=== PATIENT | female | born 1955 | race Caucasian/White ===

== ENCOUNTER 2023-12-22 18:42 | Inpatient (IN) | payer OTHER, SELFPAY ==
--- NOTE | ~2023-12-22 | XR_ITS ---
EXAMINATION: XR CHEST CLINICAL INFORMATION: Coarse rhonchi COMPARISON: None available. TECHNIQUE: Frontal view of the chest was obtained. FINDINGS: Lung volumes are symmetric. No focal consolidation is seen. There is a mildly coarsened appearance of the interstitium. No evidence of pneumothorax or significant pleural effusion. Cardiac size appears within normal limits accounting for patient rotation. No acute osseous findings are seen. XR/XR chest 1V IMPRESSION: No focal consolidation. Mildly coarsened appearance of the interstitium may reflect airways disease or subtle vascular congestion.
[2023-12-22 18:50] VITALS: BP 142/70; PULSE 86; O2SAT 97
[2023-12-22 19:06] VITALS: BP 139/84; PULSE 90; RESP 20; TEMP 37.1; O2SAT 98
[2023-12-22 19:16] VITALS: BMI 28.3
--- NOTE | 2023-12-22 19:35 | ED_ITS ---
HPI - Nausea/Vomiting/Diarrhea General Chief complaint: Nausea/Vomiting/Diarrhea Stated complaint: nausea and vomiting Time Seen by Provider: 12/22/23 19:21 Source: patient and family (, Shane and daughter, Morenita) Mode of arrival: EMS Limitations: no limitations History of Present Illness HPI Narrative: 68-year-old female with a history of hypertension, hyperlipidemia, myocardial infarction, strokes, bed-bound for 2 years, chronic pain syndrome on oxycodone who presents emergency department for evaluation of severe pain, nausea vomiting and diarrhea. According to the family the patient became ill at around 20:00 hours yesterday and felt worse today and requested to come to the hospital for evaluation. Patient has vomited multiple times and has not been able to hold down her medications including oxycodone for chronic pain (oxycodone 20 mg 3 times a day and 10 mg at bedtime). Patient has had very little food or fluid to drink throughout the day. She has also had multiple episodes of loose stool. She was also in extreme pain secondary to withdrawing from her narcotic medications. Patient states she had a very difficult time in the ambulance secondary to her pain. 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 Related Data Allergies Allergy/AdvReac Type Severity Reaction Status Date / Time No Known Allergies Allergy Verified 12/22/23 19:26 Review of Systems 2 Review of Systems: Yes all other systems are reviewed and are negative [facility] Past Medical History [facility] Narrative: Social history: Patient lives at home and her family and her and 2 daughters take care of her. Patient smokes 1-2 packs of cigarettes per day. She denies alcohol use. She denies drug use. Social History Social History Smoked in Last 30 Days: Yes Use of substances other than those prescribed or required for medical reasons: No Advance Directives: No Advance Directives Information Provided: No Physical Exam 2 Vital Signs: Vital Signs: Last Vital Signs Temp 98.7 F 12/22/23 19:06 Pulse 90 12/22/23 19:06 Resp 20 12/22/23 19:06 BP 139/84 12/22/23 19:06 Pulse Ox 98 12/22/23 19:06 O2 Del Method Room Air 12/22/23 19:06 BMI result Body Mass Index 28.3 Vital signs revealed elevated blood pressure of 139/84 otherwise unremarkable Exam: General: Awake, defers to family to answer questions but can give information. Patient is disheveled Head: Normocephalic, atraumatic EENT: PERRL, Lids normal, sclera normal, conjunctiva normal, nose normal , ears normal, throat without erythema or exudates Neck: Supple, no adenopathy Lung: breath sounds symmetric, no wheezing, rales or rhonchi Chest: symmetric movement, nontender Heart: regular rate and rhythm, normal S1, S2 no murmurs or rubs Abdomen: soft, moderate epigastric tender, nondistended, normal bowel sounds Extremities: Patient's left knee is bent and contracted, she is unable to straighten, right knee is straight but she is unable to move it Psych: Pleasant, cooperative Medications Administered Discontinued Medications Generic Name Dose Route Start Last Admin Trade Name Freq PRN Reason Stop Dose Admin Diphenhydramine HCl 25 mg 12/22/23 19:36 12/22/23 19:50 Diphenhydramine Hcl 50 Mg/Ml Vial IVPUSH 12/22/23 19:37 25 mg ONCE STA Administration Hydromorphone HCl 1 mg 12/22/23 19:36 12/22/23 19:49 Hydromorphone Hcl 1 Mg/Ml Syringe IVPUSH 12/22/23 19:37 1 mg ONCE STA Administration Protocol Hydromorphone HCl 1 mg 12/22/23 20:19 12/22/23 20:56 Hydromorphone Hcl 1 Mg/Ml Syringe IVPUSH 12/22/23 20:20 1 mg ONCE STA Administration Protocol Sodium Chloride 1,000 mls @ 999 mls/hr 12/22/23 19:36 12/22/23 20:57 Ns IV 12/22/23 20:36 Infused .Q1H1M STA Infusion Ondansetron HCl 4 mg 12/22/23 19:36 12/22/23 19:50 Ondansetron Hcl 4 Mg/2 Ml Vial IVPUSH 12/22/23 19:37 4 mg ONCE ONE Administration Medical Decision Making Medical Decision Making MDM Narrative: 68-year-old female with a history of hypertension, hyperlipidemia, myocardial infarction, strokes, bed-bound for 2 years, chronic pain syndrome on oxycodone who presents emergency department for evaluation severe pain, nausea vomiting and diarrhea since 20:00 last night, patient stated that she was not feeling well for 2-3 days. According to the family the patient became ill at around 20:00 hours yesterday and felt worse today and requested to come to the hospital for evaluation. Patient has vomited multiple times and has not been able to hold down her medications including oxycodone for chronic pain. Patient states she was in extreme pain and felt like she was withdrawing from narcotics, last dose was noon yesterday Patient has had very little food or fluid to drink throughout the day. She has also had multiple episodes of loose stool. 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 Vital signs revealed an elevated blood pressure exam did reveal epigastric tenderness and inability use your left leg secondary to contracture deformity of the left and weakness of the right. Differential diagnosis: ?Includes but is not limited to gastritis, gastroenteritis, pancreatitis, viral syndrome, COVID-19, influenza, RSV, anemia, electrolyte abnormalities, unintentional narcotic withdrawal Following evaluation was ordered: CBC, CMP, lipase, PTT, COVID-19, influenza, RSV Patient was initially treated with the following: IV insert, normal saline x1 L, Dilaudid 1 mg IV, Benadryl 25 mg IV and Zofran 4 mg IV Course: 12/08/2033: Patient required a 2nd dose of Dilaudid 1 mg IV and Benadryl 25 mg IV secondary to her pain and nausea. My independent interpretation patient's laboratory evaluation is as follows: CBC was normal. Glucose elevated 138. Elevated alk-phos of 182. Lipase was normal. Patient is feeling better after the above treatment, symptoms are consistent with an acute viral syndrome giving her gastroenteritis. I believe the patient's severe pain that she was having was most likely secondary to oxycodone withdrawal since she was unable to take this medication orally. The patient and her family are very concerned that the patient will continue to have nausea vomiting and diarrhea at home and will go into withdrawal again. Because of this concern, I will presenting patient to the covering hospitalist to have the patient admitted overnight for further treatment and to ensure that she can take oral medications before being discharged. I did discuss the patient over tiger text with the covering hospitalist, Dr. Hernan García and the patient will be admitted for further management. After discussion, I do not think that the patient needs a CT scan at this time since your symptoms are most likely caused by viral gastroenteritis. Admission/Observation Consideration of admission/observation: Escalation of care including admission/observation considered Consult Healthcare Provider Management of the patient was discussed with: Hospitalist Lab Data MDM Lab Attestation statement: I reviewed the patient's lab results. 12/22/23 19:57 12/22/23 19:57 Labs: Lab Results 12/22/23 Range/Units 19:57 WBC 11.8 H (4.8-10.8) X10*3/uL RBC 5.37 (4.20-5.50) X10*6/uL Hgb 13.9 (12.0-16.0) g/dl Hct 43.0 (37.0-47.0) % MCV 80.1 (80.0-98.0) fL MCH 25.9 L (27.0-33.0) pg MCHC 32.3 (31.0-35.0) g/dl RDW 14.4 (11.0-16.0) % Plt Count 351 (160-400) X10*3/uL MPV 8.8 L (9.4-12.3) fL Immature Gran % (Auto) 0.6 H (0.0-0.4) % Neut % (Auto) 82.4 H (45-73) % Lymph % (Auto) 11.7 L (20-40) % [place] % (Auto) 5.0 (2-11) % Eos % (Auto) 0.1 (0-4) % Baso % (Auto) 0.2 (0-2) % Lymph # (Auto) 1.4 (1.2-4.9) X10*3/uL [place] # (Auto) 0.6 (0.1-1.2) X10*3/uL Eos # (Auto) 0.0 (0.0-0.4) X10*3/uL Baso # (Auto) 0.0 (0.0-0.2) X10*3/uL Abs Immat Gran (auto) 0.07 H (0.00-0.03) X10*3/uL Absolute Neuts (auto) 9.8 H (2.0-8.3) x10*3/uL Absolute Nucleated RBC 0.000 (0.0-0.012) X10*3/uL Nucleated RBC % (auto) 0.0 (0.0-0.2) /100WBC APTT 31.2 (26.0-36.8) SEC Sodium 140 (135-145) mmol/L Potassium 3.3 (3.3-5.1) mmol/L Chloride 106 (96-108) mmol/L Carbon Dioxide 24 (22-29) mmol/L Anion Gap 13 (12-20) BUN 11 (9-16) mg/dL Creatinine 0.62 (0.5-1.4) mg/dL Estim Creat Clear Calc 86.6 Estimated GFR > 60 Random Glucose 138 H (60-115) mg/dL Calcium 9.6 (8.4-10.2) mg/dL Total Bilirubin 0.6 (0.0-1.0) mg/dL AST 17 (5-31) U/L ALT 15 (0-31) U/L Alkaline Phosphatase 182 H (39-117) U/L Total Protein 6.4 L (6.5-8.0) g/dL Albumin 3.3 L (3.5-5.0) g/dL Lipase 10 (8-78) U/L Influenza Type A (PCR) NEGATIVE (Negative) Influenza Type B (PCR) NEGATIVE (Negative) RSV RNA Qual (PCR) NEGATIVE (Negative) SARS-CoV-2 RNA (RT-PCR) NEGATIVE (Negative) Independent Historian Clinical information obtained from an independent historian. History obtained from or confirmed by: Spouse and Other (Daughter) Chronic Conditions Patient?s care impacted by: Hypertension and Other (Chronic pain syndrome on oxycodone) Critical Care Time Critical Care Time Critical Care Time: Yes Total Critical Care Time: 45 Attestation: Critical Care: The patient was critically ill with a high probability of imminent or life threatening deterioration. I spent greater than 30 minutes of discontinuous time evaluating the patient,delivering critical care at the bedside, discussing and evaluating pertinent data with consultants. Critical care time does not include time spent performing separately billable procedures or teaching. Total time spent performing critical care was 45 minutes. Discharge Plan Discharge Patient Disposition: Admitted As Inpatient
[2023-12-22] MEDS: HYDROmorphone HCl 1 MG/ML SYRINGE IVPUSH ×3 (19:49→22:58)
[2023-12-22] MEDS: 0.9 % Sodium Chloride 1,000 ML 999 ML IV (19:50)
[2023-12-22] MEDS: ondansetron HCL 4 MG/2 ML VIAL IVPUSH (19:50)
[2023-12-22] MEDS: diphenhydrAMINE HCL 50 MG/ML VIAL 25 MG IVPUSH (19:50)
[2023-12-22 20:03] LABS: MANUAL DIFF FLAG NO
[2023-12-22 20:05] LABS: Basophils Percent Auto 0.2 % (0-2); Eosinophils Percent Auto 0.1 % (0-4); Hemoglobin 13.9 g/dl (12.0-16.0); Imm Gran Abs Auto 0.07 X10*3/uL (0.00-0.03); Imm Gran Pct Auto 0.6 % (0.0-0.4); Lymphocytes Absolute Auto 1.4 X10*3/uL (1.2-4.9); Lymphocytes Percent Auto 11.7 % (20-40); Mean Corpuscular HGB Conc 32.3 g/dl (31.0-35.0); Mean Corpuscular Hemoglobin 25.9 pg (27.0-33.0); Mean Corpuscular Volume 80.1 fL (80.0-98.0); Mean Platelet Volume 8.8 fL (9.4-12.3); Monocytes Absolute Auto 0.6 X10*3/uL (0.1-1.2); Neutrophils Absolute Auto 9.8 x10*3/uL (2.0-8.3); Neutrophils Percent Auto 82.4 % (45-73); Platelet Count 351 X10*3/uL (160-400); Red Blood Count 5.37 X10*6/uL (4.20-5.50); Red Cell Distribution Width 14.4 % (11.0-16.0); White Blood Count 11.8 X10*3/uL (4.8-10.8)
[2023-12-22 20:15] LABS: Partial Thromboplastin Time 31.2 SEC (26.0-36.8)
[2023-12-22 20:23] LABS: Alanine Aminotransferase 15 U/L (0-31); Albumin Level 3.3 g/dL (3.5-5.0); Alkaline Phosphatase 182 U/L (39-117); Anion Gap 13 (12-20); Aspartate Amino Transferase 17 U/L (5-31); Bilirubin Total 0.6 mg/dL (0.0-1.0); Blood Urea Nitrogen 11 mg/dL (9-16); Calcium 9.6 mg/dL (8.4-10.2); Carbon Dioxide 24 mmol/L (22-29); Chloride 106 mmol/L (96-108); Creatinine Clr Calc Pharmacy 86.6; Estimated Glomerular Filt Rate > 60; Glucose Random 138 mg/dL (60-115); Lipase 10 U/L (8-78); Potassium 3.3 mmol/L (3.3-5.1); Sodium 140 mmol/L (135-145); Total Protein 6.4 g/dL (6.5-8.0)
[2023-12-22 20:40] LABS: Influenza A PCR NEGATIVE (Negative); Influenza B PCR NEGATIVE (Negative); Resp Syncy Virus RNA Qual PCR NEGATIVE (Negative); SARS COV2 PCR INHOUSE NEGATIVE (Negative)
--- NOTE | 2023-12-22 21:30 | PC.NURSE ---
Attempting PO trial per .
--- NOTE | 2023-12-22 22:47 | PM.IMHP ---
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 She reports that she began experiencing nausea and vomiting about 3 days ago and has been unable to tolerate much p.o.. She is incontinent of urine and stool and her daughter found her incontinent of diarrhea earlier today. No melena or hematochezia noted. No hematemesis. She has been unable to take any of her medications including her oxycodone 20 mg which she takes faithfully every 8 hours and subsequently has been in significant pain particularly of the hips and coccyx. Denies any recent travel or eating any bad foods. However, her son is experiencing similar symptoms that started earlier today. She is afebrile. Vitals stable. There is a mild leukocytosis of 11.8. Renal function and electrolyte levels normal, glucose 138. Negative for flu, RSV, COVID-19. In the ED, given 1 mg hydromorphone x2, 1 L IV NS, 25 mg Benadryl, 4 mg ondansetron. Review of Systems Review of Systems: General: No fevers, malaise, unintentional weight loss HEENT: No blurred vision, diplopia. No sore throat, nasal congestion, rhinorrhea, sinus pain, ear pain Cardiovascular: No chest pain, palpitations, or leg edema Respiratory: No shortness of breath, wheezing, cough GI: +n/v/d. No abdominal pain, constipation, melena, hematochezia : No dysuria, hematuria, increased urinary frequency, decreased urinary output MSK: No myalgia, back pain. 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 Bedbound History of CVA (cerebrovascular accident) Coronary artery disease Hyperlipidemia Hypertension Social History Smoked in Last 30 Days: Yes Use of substances other than those prescribed or required for medical reasons: No Advance Directives: No Advance Directives Information Provided: No Meds Allergies Allergy/AdvReac Type Severity Reaction Status Date / Time No Known Allergies Allergy Verified 12/22/23 19:26 Physical Exam Vital Signs and Narrative: Vital Signs: Last Vital Signs Temp 98.7 F 12/22/23 19:06 Pulse 90 12/22/23 19:06 Resp 20 12/22/23 19:06 BP 139/84 12/22/23 19:06 Pulse Ox 98 12/22/23 19:06 O2 Del Method Room Air 12/22/23 19:06 BMI result Body Mass Index 28.3 Constitutional - Awake and Alert, No apparent distress Eyes - PERRLA, EOMI Cardiovascular - S1S2, RRR, No edema Respiratory - Normal lung expansion, Normal respiratory effort, No respiratory distress, coarse rhonchi bilaterally R>L Gastrointestinal - NT / ND; +BS; No rebound or guarding Extremities - no calf tenderness bilaterally, no swelling Musculoskeletal - Normal inspection, normal ROM. TTP left hip Skin - Warm/Dry Neurological - Alert & oriented x3, contracture LLE Psychological - Appropriate affect Results Labs 12/22/23 19:57 12/22/23 19:57 Labs: Laboratory Results - last 24 hr 12/22/23 19:57 MCV 80.1 MCH 25.9 L MCHC 32.3 RDW 14.4 Plt Count 351 MPV 8.8 L Immature Gran % (Auto) 0.6 H Neut % (Auto) 82.4 H Lymph % (Auto) 11.7 L [place] % (Auto) 5.0 Eos % (Auto) 0.1 Baso % (Auto) 0.2 Lymph # (Auto) 1.4 [place] # (Auto) 0.6 Eos # (Auto) 0.0 Baso # (Auto) 0.0 Abs Immat Gran (auto) 0.07 H Absolute Neuts (auto) 9.8 H Absolute Nucleated RBC 0.000 Nucleated RBC % (auto) 0.0 APTT 31.2 Anion Gap 13 Estim Creat Clear Calc 86.6 Estimated GFR > 60 Random Glucose 138 H Calcium 9.6 Total Bilirubin 0.6 AST 17 ALT 15 Alkaline Phosphatase 182 H Total Protein 6.4 L Albumin 3.3 L Lipase 10 Influenza Type A (PCR) NEGATIVE Influenza Type B (PCR) NEGATIVE RSV RNA Qual (PCR) NEGATIVE SARS-CoV-2 RNA (RT-PCR) NEGATIVE Assessment and Plan (1) Acute narcotic withdrawal: Status: Acute (2) Gastroenteritis: Status: Acute Plan 68-year-old female with history of hypertension, hyperlipidemia, history of OH, 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 intolerance and acute opiate withdrawal # acute gastroenteritis-suspect viral in etiology -GI panel, C diff PCR ordered -antiemetics p.r.n. -clear liquid diet, advanced as tolerated -renal function electrolyte levels normal -continue IVF given ongoing vomiting -follow renal function, lytes # acute opiate withdrawal -due to inability to take p.o. narcotics -takes oxycodone 20 mg t.i.d. scheduled -initiate hydromorphone 1 mg q.6h scheduled, just as needed -monitor on COWS #HTN -continue home meds if able, monitor bp closely #HLD -continue statin #Chronic pain syndrome due to contracture LLE/bedbound status s/p multiple CVA -continue baclofen if tolerated. hydromorphone as above # COPD -patient is asymptomatic with adventitious lung sounds -CXR ordered -DuoNebs q.4h while awake -continue maintenance inhalers, albuterol p.r.n. med rec pending DVT prophylaxis-Lovenox DNR/DNI Patient requires inpatient stay at least 2 midnights due to intractable nausea and vomiting with inability to take oral medications as well as tolerate other p.o. intake requiring IV fluid resuscitation, IV antiemetics, and IV narcotic medication due to acute withdrawal Quality Stroke Does the patient have a stroke diagnosis?: No VTE Prior VTE?: No VTE Risk Level:: Medical - moderate - high VTE Device Contraindication: Treatment Not Indicated VTE Drug Contraindication: N/A - Med Ordered
[2023-12-22] MEDS: Enoxaparin Sodium 40 MG/0.4 ML SYRINGE SUBCUT (22:58)
[2023-12-22] MEDS: 0.9 % Sodium Chloride 1,000 ML 100 ML IVCONT (23:05)
--- NOTE | 2023-12-22 23:30 | MHC.EDTECH ---
Patient was changed into a hospital gown. It was very painful for patient to roll to the sides to be cleaned. No appearance of broken skin. Back of the patient appeared to be dirty and also had VM. Patient refused to be cleaned furter due to pain. Purewik pas placed.
[2023-12-23] MEDS: Acetaminophen 325 MG TABLET 650 MG PO ×2 (03:18→18:19)
[2023-12-23] MEDS: HYDROmorphone HCl 1 MG/ML SYRINGE IVPUSH ×4 (04:57→22:31)
[2023-12-23 06:18] VITALS: BP 139/40; PULSE 69; RESP 12; O2SAT 98
[2023-12-23] MEDS: Albuterol/Iprat 2.5/0.5MG 3 ML AMPUL.NEB INHALE ×3 (08:01→15:19)
[2023-12-23 08:05] VITALS: PULSE 67; RESP 18; O2SAT 94
--- NOTE | 2023-12-23 09:05 | P.PNIM_ITS ---
Subjective Subjective Date of Service: 12/23/23 Interval History: Seen and evaluated this morning abdomen mixing picker tender unable to tolerate much of PO having diarrhea overnight Review of Systems Review of Systems: Yes all other systems are reviewed and are negative Physical Exam 2 Vital Signs: Vital Signs: Last Vital Signs Temp 98.7 F 12/22/23 19:06 Pulse 67 12/23/23 08:05 Resp 18 12/23/23 08:05 BP 139/40 L 12/23/23 06:18 Pulse Ox 98 12/23/23 06:18 O2 Del Method Room Air 12/23/23 06:18 BMI result Body Mass Index 28.3 Const: Other: Constitutional : Awake, interactive, not in distress Neck : Normal inspection, Supple Cardiovascular : RRR, no JVP, no lower extremity edema Respiratory : good bilateral air entry, no crackles, wheezes or rhonchi Gastrointestinal: soft, lax, Normal bowel sounds, mild generalized tenderness Skin : Warm, Dry Neurological : Alert & oriented x3, No focal deficit Objective Data Active Medications Acetaminophen (Acetaminophen 325 Mg Tablet) 650 mg PO Q6H PRN PRN Reason: Pain, Mild (Pain Scale 1-3) Last Admin: 12/23/23 03:18 Dose: 650 mg Documented By: MOHAN Albuterol/Ipratropium (Albuterol/Iprat 2.5/0.5mg 3 Ml Ampul.Neb) 3 ml INHALE RQ4H WHILE AWAKE [facility] Last Admin: 12/23/23 08:01 Dose: 3 ml Documented By: PB Enoxaparin Sodium (Enoxaparin Sodium 40 Mg/0.4 Ml Syringe) 40 mg SUBCUT Q24H FRANCES Last Admin: 12/22/23 22:58 Dose: 40 mg Documented By: MOHAN Hydromorphone HCl (Hydromorphone Hcl 1 Mg/Ml Syringe) 1 mg IVPUSH Q6H FRANCES; Protocol Last Admin: 12/23/23 04:57 Dose: 1 mg Documented By: MOHAN Sodium Chloride (Ns) 1,000 mls @ 100 mls/hr IVCONT .Q10H FRANCES Last Admin: 12/22/23 23:05 Dose: 100 mls/hr Documented By: MOHAN Ondansetron HCl (Ondansetron Hcl 4 Mg/2 Ml Vial) 4 mg IVPUSH Q8H PRN PRN Reason: Nausea and Vomiting Senna (Sennosides 8.6 Mg Tablet) 17.2 mg PO BEDTIME PRN PRN Reason: Constipation Sodium Chloride (0.9 % Sodium Chloride Flush 3 Ml Syringe) 3 ml IVFLUSH QSHIFT [facility] Last Admin: 12/23/23 00:17 Dose: Not Given Documented By: MOHAN Non-Admin Reason: IV Running Labs 12/22/23 19:57 12/22/23 19:57 Labs: Laboratory Results - last 24 hr 12/22/23 19:57 MCV 80.1 MCH 25.9 L MCHC 32.3 RDW 14.4 Plt Count 351 MPV 8.8 L Immature Gran % (Auto) 0.6 H Neut % (Auto) 82.4 H Lymph % (Auto) 11.7 L [place] % (Auto) 5.0 Eos % (Auto) 0.1 Baso % (Auto) 0.2 Lymph # (Auto) 1.4 [place] # (Auto) 0.6 Eos # (Auto) 0.0 Baso # (Auto) 0.0 Abs Immat Gran (auto) 0.07 H Absolute Neuts (auto) 9.8 H Absolute Nucleated RBC 0.000 Nucleated RBC % (auto) 0.0 APTT 31.2 Anion Gap 13 Estim Creat Clear Calc 86.6 Estimated GFR > 60 Random Glucose 138 H Calcium 9.6 Total Bilirubin 0.6 AST 17 ALT 15 Alkaline Phosphatase 182 H Total Protein 6.4 L Albumin 3.3 L Lipase 10 Influenza Type A (PCR) NEGATIVE Influenza Type B (PCR) NEGATIVE RSV RNA Qual (PCR) NEGATIVE SARS-CoV-2 RNA (RT-PCR) NEGATIVE Assessment and Plan (1) Acute narcotic withdrawal: Status: Acute (2) Gastroenteritis: Status: Acute (3) Viral syndrome: Status: Acute Plan 68-year-old female with history of hypertension, hyperlipidemia, history of [place], 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 intolerance and acute opiate withdrawal # acute gastroenteritis likely viral in etiology GI panel, C diff PCR pending continue IVF antiemetics p.r.n. clear liquid diet, advanced as tolerated renal function electrolyte levels normal follow renal function, lytes # acute opiate withdrawal due to inability to take p.o. narcotics as she takes oxycodone 20 mg t.i.d. scheduled hydromorphone 1 mg q.6h scheduled, just as needed monitor on COWS #HTN continue home meds if able, monitor bp closely #HLD continue statin #Chronic pain syndrome due to contracture LLE/bedbound status s/p multiple CVA continue baclofen if tolerated. hydromorphone as above # COPD patient is asymptomatic with adventitious lung sounds CXR with no infiltrates DuoNebs q.4h while awake continue maintenance inhalers, albuterol p.r.n. DVT prophylaxis-Lovenox DNR/DNI Patient requires inpatient stay overnight due to intractable nausea and vomiting with inability to take oral medications as well as tolerate other p.o. intake requiring IV fluid resuscitation, IV antiemetics, and IV narcotic medication due to acute withdrawal Quality Stroke Does the patient have a stroke diagnosis?: No VTE Prior VTE?: No VTE Risk Level:: Medical - moderate - high VTE Device Contraindication: Treatment Not Indicated VTE Drug Contraindication: N/A - Med Ordered
--- NOTE | 2023-12-23 09:10 | PHA.MEDREC ---
Addendum entered by Ivette Aguilar formerly [facility] 12/23/23 09:13: Pt also mentioned she does not frequently use combivent and uses PRN Original Note: Pharmacy Consult ? Medication Reconciliation Pharmacy has completed the medication reconciliation with patient and called samira. Patient states she does not take potassium chloride anymore. Pt mentioned she take metoprolol but could not confirm dose or frequency - spoke to samira, it has not been filled since December 18, 2021 so it was left off of the med rec. Pt also stated she takes an OTC aspirin.
[2023-12-23] MEDS: 0.9 % Sodium Chloride 1,000 ML 100 ML IVCONT ×3 (09:27→21:45)
[2023-12-23] MEDS: Baclofen 20 MG TABLET PO ×3 (09:30→21:45)
--- NOTE | 2023-12-23 09:58 | PC.NURSE ---
Pt with increasing pain to general body, okay to given Dilaudid prior to corrina time per Dr Nava, pt unable to tolerate much repositioning in bed d/t pain will re attempt after pain under control with meds given. Nausea, no vomiting noted by this RN. NS at 100ml/hr
--- NOTE | 2023-12-23 10:51 | MHC.CM.PN ---
PT REPORTS SHE LIVES WITH HER AND HER 11/05 CARE PROVIDER SHE IS BED BOUND AT BASELINE SHE REPORTS SHE HAS A HCP, COPY REQUESTED PCP: MANGO SIERRA IMM DELIVERED DCP: HOME, RESUME 11/05 CARE BLS TRANSPORT
--- NOTE | 2023-12-23 11:09 | PC.NURSE ---
Spoke to daughter Morenita and updated with permission of pt. Pt does appear more comfortable s/p Dilaudid given
[2023-12-23 11:24] VITALS: PULSE 72; RESP 18; O2SAT 98
[2023-12-23] MEDS: Gabapentin 300 MG CAPSULE PO ×2 (13:50→21:45)
[2023-12-23] MEDS: oxyCODONE HCl Immed Release 5 MG TABLET 20 MG PO ×2 (13:50→19:53)
--- NOTE | 2023-12-23 13:52 | PC.NURSE ---
Pt cotinues with pain, Dr Nava aware and PO Oxy to be given. Baclofen and Gabapentin given as well as ordered.
[2023-12-23 15:20] VITALS: PULSE 69; RESP 20; O2SAT 98
[2023-12-23 15:43] VITALS: BP 187/84; PULSE 78; RESP 22; TEMP 36.6; O2SAT 98
--- NOTE | 2023-12-23 18:38 | PC.NURSE ---
Patient is has not vomited or had diarrhea. Patient able to keep pills down. Patients pain is not controlled just gave tylenol. oxycodone due at 2100. left knee contracted, right leg usually kept straight. purewick for urinary incontinence. ? when was last bowel movement.
[2023-12-23 20:13] VITALS: BP 155/86; PULSE 77; RESP 16; TEMP 36.7; O2SAT 97
[2023-12-23 21:26] VITALS: BMI 30.8
[2023-12-23] MEDS: Enoxaparin Sodium 40 MG/0.4 ML SYRINGE SUBCUT (22:33)
[2023-12-24] VITALS (9 sets, daily range): BP systolic 113–196; BP diastolic 56–83; PULSE 65–74; RESP 17–20; TEMP 36.3–36.8; O2SAT 94–99; BMI 30.8
[2023-12-24] MEDS: amLODIPine Besylate 5 MG TABLET PO (04:27)
--- NOTE | 2023-12-24 04:58 | PC.NURSE ---
Left inner thighs upper middle back skin tear. provided skin care applied barrier cream.
[2023-12-24] MEDS: HYDROmorphone HCl 1 MG/ML SYRINGE IVPUSH (05:19)
--- NOTE | 2023-12-24 06:07 | PC.NURSE ---
at 0300 bp 168/69 HR 69, notified, received new order amlodipine 5mg. rechecked at 0600 bp 169/79. made aware. doctor said give some more time to med to work. provided incontinent care; during the care pt has severe pain couldn't cleaned her up the dry back skin. 3 or 4 people need to be provided care. pt has fear of excruciating pain very resist to care. will continue to monitor.
--- NOTE | 2023-12-24 06:33 | PC.NURSE ---
Left heel DTI
[2023-12-24 06:44] LABS: Hematocrit 40.6 % (37.0-47.0); Mean Corpuscular Hemoglobin 26.1 pg (27.0-33.0); Mean Corpuscular Volume 81.5 fL (80.0-98.0); Mean Platelet Volume 8.7 fL (9.4-12.3); Platelet Count 359 X10*3/uL (160-400); Red Blood Count 4.98 X10*6/uL (4.20-5.50); Red Cell Distribution Width 14.6 % (11.0-16.0); White Blood Count 10.5 X10*3/uL (4.8-10.8)
[2023-12-24] MEDS: 0.9 % Sodium Chloride 1,000 ML 100 ML IVCONT ×2 (06:44→16:27)
[2023-12-24 07:01] LABS: Anion Gap 11 (12-20); Blood Urea Nitrogen 9 mg/dL (9-16); Calcium 8.8 mg/dL (8.4-10.2); Carbon Dioxide 25 mmol/L (22-29); Chloride 108 mmol/L (96-108); Creatinine Clr Calc Pharmacy 98.3; Estimated Glomerular Filt Rate > 60; Glucose Random 67 mg/dL (60-115); Potassium 3.1 mmol/L (3.3-5.1); Sodium 141 mmol/L (135-145)
[2023-12-24] MEDS: Albuterol/Iprat 2.5/0.5MG 3 ML AMPUL.NEB INHALE ×3 (08:03→19:57)
[2023-12-24] MEDS: Fluticasone/Vilanterol 100/25 BLST.W.DEV 1 PUFF INHALE (08:03)
[2023-12-24] MEDS: Baclofen 20 MG TABLET PO ×3 (08:10→20:28)
[2023-12-24] MEDS: oxyCODONE HCl Immed Release 5 MG TABLET 20 MG PO ×3 (08:11→20:28)
[2023-12-24] MEDS: Gabapentin 300 MG CAPSULE PO ×3 (08:11→20:28)
[2023-12-24] MEDS: Potassium Chloride Packet 20 MEQ PACKET 40 MEQ PO (08:11)
[2023-12-24] MEDS: metroNIDAZOLE/NS 500 MG/100 ML PIGGYBACK 100 MG IV ×2 (10:15→18:15)
[2023-12-24] MEDS: Acetaminophen 325 MG TABLET 650 MG PO (10:15)
[2023-12-24] MEDS: TiZANidine HCL 4 MG TABLET PO (10:16)
--- NOTE | 2023-12-24 11:02 | MHC.CLN ---
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
[2023-12-24] MEDS: cefTRIAXone sodium 1 GM in 0.9 % Sodium Chloride 50 ML IV (11:24)
[2023-12-24] MEDS: Sennosides 8.6 MG TABLET 17.2 MG PO (11:37)
--- NOTE | 2023-12-24 13:13 | HO.PM.IMPN ---
Subjective Subjective Date of Service: 12/24/23 Interval History: Seen and evaluated this morning complaining of LLQ pain and tenderness tolerating more PO no diarrhea overnight Review of Systems Review of Systems: Yes all other systems are reviewed and are negative Physical Exam Vital Signs: Vital Signs: Last Vital Signs Temp 98.3 F 12/24/23 07:25 Pulse 70 12/24/23 11:49 Resp 20 12/24/23 11:49 BP 170/64 H 12/24/23 08:05 Pulse Ox 99 12/24/23 07:25 O2 Del Method Room Air 12/24/23 07:25 BMI result Body Mass Index 30.8 Const: Other: Constitutional : Awake, interactive, not in distress Neck : Normal inspection, Supple Cardiovascular : RRR, no JVP, no lower extremity edema Respiratory : good bilateral air entry, no crackles, wheezes or rhonchi Gastrointestinal: soft, lax, Normal bowel sounds, LLQ pain and tenderness Skin : Warm, Dry Neurological : Alert & oriented x3, No focal deficit Objective Data Active Medications Acetaminophen (Acetaminophen 325 Mg Tablet) 650 mg PO Q6H PRN PRN Reason: Pain, Mild (Pain Scale 1-3) Last Admin: 12/24/23 10:15 Dose: 650 mg Documented By: NANI Albuterol/Ipratropium (Albuterol/Iprat 2.5/0.5mg 3 Ml Ampul.Neb) 3 ml INHALE RQ4H WHILE AWAKE [facility] Last Admin: 12/24/23 11:48 Dose: 3 ml Documented By: PANFILO Albuterol/Ipratropium (Albuterol/Iprat 2.5/0.5mg 3 Ml Ampul.Neb) 3 ml INHALE RQ6H PRN PRN Reason: Shortness Of Breath Amlodipine Besylate (Amlodipine Besylate 5 Mg Tablet) 5 mg PO DAILY [facility]; Protocol Last Admin: 12/24/23 04:27 Dose: 5 mg Documented By: CLARA Baclofen (Baclofen 20 Mg Tablet) 20 mg PO TID [facility] Last Admin: 12/24/23 08:10 Dose: 20 mg Documented By: NANI Enoxaparin Sodium (Enoxaparin Sodium 40 Mg/0.4 Ml Syringe) 40 mg SUBCUT Q24H [facility] Last Admin: 12/23/23 22:33 Dose: 40 mg Documented By: CLARA Fluticasone/Vilanterol (Fluticasone/Vilanterol 100/25 Blst.W.Dev) 1 puff INHALE RDAILY [facility] Last Admin: 12/24/23 08:03 Dose: 1 puff Documented By: PB Gabapentin (Gabapentin 300 Mg Capsule) 300 mg PO TID [facility] Last Admin: 12/24/23 08:11 Dose: 300 mg Documented By: NANI Hydromorphone HCl (Hydromorphone Hcl 1 Mg/Ml Syringe) 1 mg IVPUSH Q6H PRN; Protocol PRN Reason: Pain, Severe (Pain Scale 7-10) Last Admin: 12/24/23 05:19 Dose: 1 mg Documented By: CLARA Hydroxyzine HCl (Hydroxyzine Hcl 25 Mg Tablet) 25 mg PO Q8H PRN PRN Reason: anxiety Sodium Chloride (Ns) 1,000 mls @ 100 mls/hr IVCONT .Q10H [facility] Last Admin: 12/24/23 06:44 Dose: 100 mls/hr Documented By: CLARA Metronidazole (Flagyl) 500 mg in 100 mls @ 100 mls/hr IV Q8H [facility] Last Infusion: 12/24/23 11:26 Dose: Infused Documented By: NANI Ceftriaxone Sodium 1 gm/ (Sodium Chloride) 50 mls @ 100 mls/hr IV Q24H [facility] Last Infusion: 12/24/23 12:19 Dose: Infused Documented By: ANNI Ondansetron HCl (Ondansetron Hcl 4 Mg/2 Ml Vial) 4 mg IVPUSH Q8H PRN PRN Reason: Nausea and Vomiting Oxycodone HCl (Oxycodone Hcl Immed Release 5 Mg Tablet) 20 mg PO TID [facility] Last Admin: 12/24/23 08:11 Dose: 20 mg Documented By: NANI Senna (Sennosides 8.6 Mg Tablet) 17.2 mg PO BEDTIME PRN PRN Reason: Constipation Last Admin: 12/24/23 11:37 Dose: 17.2 mg Documented By: NANI Comments: okayed to give at this time Sodium Chloride (0.9 % Sodium Chloride Flush 3 Ml Syringe) 3 ml IVFLUSH QSHIFT [facility] Last Admin: 12/24/23 07:32 Dose: Not Given Documented By: NANI Non-Admin Reason: IV Running Tizanidine HCl (Tizanidine Hcl 4 Mg Tablet) 4 mg PO BID PRN PRN Reason: muscle spasm Last Admin: 12/24/23 10:16 Dose: 4 mg Documented By: NANI Labs 12/24/23 06:09 12/24/23 06:09 Labs: Laboratory Results - last 24 hr 12/24/23 06:09 MCV 81.5 MCH 26.1 L MCHC 32.0 RDW 14.6 Plt Count 359 MPV 8.7 L Absolute Nucleated RBC 0.000 Nucleated RBC % (auto) 0.0 Anion Gap 11 L Estim Creat Clear Calc 98.3 Estimated GFR > 60 Random Glucose 67 Calcium 8.8 D Assessment and Plan (1) Acute narcotic withdrawal: Status: Acute (2) Gastroenteritis: Status: Acute (3) Colitis: Status: Acute Plan 68-year-old female with history of hypertension, hyperlipidemia, history of [place], 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 intolerance and acute opiate withdrawal # LLQ abdominal pain 2/2 acute infective colitis Start IV Abx Ceftriaxone and Flagyl continue IVF antiemetics p.r.n. clear liquid diet, advanced as tolerated renal function electrolyte levels normal follow renal function, lytes # acute opiate withdrawal improved restarted home oxycodone 20 mg t.i.d. scheduled hydromorphone 1 mg q.6h as needed #HTN continue home meds if able, monitor bp closely #HLD continue statin #Chronic pain syndrome due to contracture LLE/bedbound status s/p multiple CVA continue baclofen if tolerated. hydromorphone as above # COPD asymptomatic CXR with no infiltrates DuoNebs q.4h while awake continue maintenance inhalers, albuterol p.r.n. DVT prophylaxis-Lovenox DNR/DNI Patient requires inpatient stay overnight due to intractable abdominal pain requiring IV fluid resuscitation, IV antiemetics, and IV pain meds pending safe discharge plan Quality Stroke Does the patient have a stroke diagnosis?: No VTE Prior VTE?: No VTE Risk Level:: Medical - moderate - high VTE Device Contraindication: Treatment Not Indicated VTE Drug Contraindication: N/A - Med Ordered
--- NOTE | 2023-12-24 17:36 | HO.WOUND ---
Wound Consult: Initial 68yr old?F admitted to [facility] on 12/21 - See progress notes and H&P for detailed history.? Wound consult placed for Left Heel DTI POA.? Patient agreeable to assessment and photo documentation.? Left Heel Etiology: Deep Tissue Injury ??Present on Admission Measurements:see charting for detailed measurements Wound Bed: red maroon nonblanchable intact tissue Drainage / Odor: None Edges: Irregular edges ? [place] wound: [place] blanchable tissue ? No Induration, Fluctuance or Warmth noted Pain: Pt reports extreme pain throughout her body Goals of Treatment: ? Off Laod Pressure and protect from friction with Foam applicaiton and heel protector boots. Recommendations: 1. Turn and Reposition every 2 hours and as needed for patient comfort.? Use pillows or wedges to support off loading positions. 2. Off Load all bony prominences with use of pillows and heel boots if needed.? Apply Preventative foams where needed. ? 3. Monitor for incontinence and moisture control, use barrier creams when needed for prevention and treatment. 4. Provide adequate and supplemental nutrition.? 5. Order or Continue low air loss mattress. 6. When applicable maintain blood glucose levels per Providers order. 7. Left Heel - Apply Foam dressing - peel back and assess Q shift change every 3 days. Apply Heel Protector Boot to aid in off loading. Re-consult wound care Nurse for wound deterioration or wound changes.
[2023-12-24] MEDS: 0.9 % Sodium Chloride Flush 3 ML SYRINGE IVFLUSH (20:27)
[2023-12-24] MEDS: ondansetron HCL 4 MG/2 ML VIAL IVPUSH (20:39)
[2023-12-24] MEDS: Metoclopramide HCl 10 MG/2 ML VIAL 5 MG IVPUSH (22:07)
[2023-12-24] MEDS: Enoxaparin Sodium 40 MG/0.4 ML SYRINGE SUBCUT (22:07)
--- NOTE | 2023-12-25 | ECG_ITS ---
Test Reason : Chest pain Blood Pressure : / mmHG Vent. Rate : 074 BPM Atrial Rate : 074 BPM P-R Int : 154 ms QRS Dur : 084 ms QT Int : 430 ms P-R-T Axes : 064 -17 019 degrees QTc Int : 477 ms Normal sinus rhythm Normal ECG No previous ECGs available Referred By: Omar García Electronically Signed By:Jose Floyd
[2023-12-25] MEDS: 0.9 % Sodium Chloride 1,000 ML 100 ML IVCONT ×3 (01:03→21:10)
[2023-12-25] MEDS: metroNIDAZOLE/NS 500 MG/100 ML PIGGYBACK 100 MG IV ×3 (01:03→17:43)
[2023-12-25 04:00] VITALS: BP 135/72; PULSE 75; RESP 16; TEMP 36.7; O2SAT 95
[2023-12-25 05:38] LABS: Hematocrit 38.6 % (37.0-47.0); Hemoglobin 12.1 g/dl (12.0-16.0); Mean Corpuscular HGB Conc 31.3 g/dl (31.0-35.0); Mean Corpuscular Hemoglobin 26.1 pg (27.0-33.0); Mean Corpuscular Volume 83.2 fL (80.0-98.0); Mean Platelet Volume 8.4 fL (9.4-12.3); Platelet Count 253 X10*3/uL (160-400); Red Blood Count 4.64 X10*6/uL (4.20-5.50); Red Cell Distribution Width 14.8 % (11.0-16.0); White Blood Count 7.3 X10*3/uL (4.8-10.8)
[2023-12-25 05:51] LABS: Anion Gap 10 (12-20); Blood Urea Nitrogen 7 mg/dL (9-16); Calcium 8.8 mg/dL (8.4-10.2); Carbon Dioxide 27 mmol/L (22-29); Chloride 111 mmol/L (96-108); Creatinine Clr Calc Pharmacy 88.9; Estimated Glomerular Filt Rate > 60; Glucose Random 70 mg/dL (60-115); Potassium 3.2 mmol/L (3.3-5.1); Sodium 145 mmol/L (135-145)
[2023-12-25 06:58] VITALS: BP 132/68; PULSE 70; RESP 18; TEMP 36.6; O2SAT 96
[2023-12-25] MEDS: Potassium Chloride Packet 20 MEQ PACKET 40 MEQ PO (07:58)
[2023-12-25] MEDS: oxyCODONE HCl Immed Release 5 MG TABLET 20 MG PO ×3 (07:59→21:11)
[2023-12-25] MEDS: amLODIPine Besylate 5 MG TABLET PO (07:59)
[2023-12-25] MEDS: Gabapentin 300 MG CAPSULE PO ×3 (07:59→21:11)
[2023-12-25] MEDS: Baclofen 20 MG TABLET PO ×3 (08:00→21:11)
[2023-12-25] MEDS: Fluticasone/Vilanterol 100/25 BLST.W.DEV 1 PUFF INHALE (08:28)
[2023-12-25] MEDS: Albuterol/Iprat 2.5/0.5MG 3 ML AMPUL.NEB INHALE (08:28)
[2023-12-25 08:29] VITALS: PULSE 70; RESP 18; O2SAT 96
[2023-12-25] MEDS: HYDROmorphone HCl 1 MG/ML SYRINGE IVPUSH (10:20)
[2023-12-25] MEDS: ondansetron HCL 4 MG/2 ML VIAL IVPUSH (10:31)
--- NOTE | 2023-12-25 10:56 | PM.DS ---
DS: Providers Provider Date of Service: 12/26/23 Date of admission: 12/22/23 22:39 Primary care physician: Bruce Acevedo III, MD Consults: 12/23/23 21:43 Consult to Wound Care Routine Reason for consultation: skin tear back 12/24/23 06:34 Consult to Wound Care Routine Reason for consultation: L. 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 She reports that she began experiencing nausea and vomiting about 3 days ago and has been unable to tolerate much p.o.. She is incontinent of urine and stool and her daughter found her incontinent of diarrhea earlier today. No melena or hematochezia noted. No hematemesis. She has been unable to take any of her medications including her oxycodone 20 mg which she takes faithfully every 8 hours and subsequently has been in significant pain particularly of the hips and coccyx. Denies any recent travel or eating any bad foods. However, her son is experiencing similar symptoms that started earlier today. She is afebrile. Vitals stable. There is a mild leukocytosis of 11.8. Renal function and electrolyte levels normal, glucose 138. Negative for flu, RSV, COVID-19. In the ED, given 1 mg hydromorphone x2, 1 L IV NS, 25 mg Benadryl, 4 mg ondansetron. Hospital course The patient was admitted for LLQ abdominal pain likely secondary to acute infective colitis. started on IV fluids and treated with IV antibiotics of Ceftriaxone and Flagyl with good response over the course of hospital stay as diarrhea resolved and she was able to tolerate diet with stable CBC and kidney function. She was also noted to have symptoms of acute opiate withdrawal. restarted home oxycodone 20 mg t.i.d. scheduled along with hydromorphone 1 mg q.6h as needed with fair control. She developed vertigo and responded well to Meclizine and Zofran. Continue Ceftin and Flagyl as prescribed Zofran as needed for nausea Meclizine for vertigo advance your diet gradually at home follow with PCP in 2 weeks Time Attestation Discharge Coordination Time (in mins): 40 Quality: Safe Use of Opioids Does Pt have an Active Cancer Diagnosis on the Problem List?: No Quality: Stroke Does the patient have a stroke diagnosis?: No Physical Exam Vital Signs: Vital Signs: Last Vital Signs Temp 98 F 12/25/23 06:58 Pulse 70 12/25/23 08:29 Resp 18 12/25/23 08:29 BP 132/68 12/25/23 06:58 Pulse Ox 96 12/25/23 06:58 O2 Del Method Room Air 12/25/23 06:58 BMI result Body Mass Index 30.8 Const: Other: Constitutional : Awake, interactive, not in distress Neck : Normal inspection, Supple Cardiovascular : RRR, no JVP, no lower extremity edema Respiratory : good bilateral air entry, no crackles, wheezes or rhonchi Gastrointestinal: soft, lax, Normal bowel sounds, LLQ pain and tenderness Skin : Warm, Dry Neurological : Alert & oriented x3, No focal deficit DS: Data Data Completed and Pending Labs on day of discharge: Laboratory Results - last 24 hr 12/25/23 05:20 WBC 7.3 RBC 4.64 Hgb 12.1 Hct 38.6 MCV 83.2 MCH 26.1 L MCHC 31.3 RDW 14.8 Plt Count 253 D MPV 8.4 L Absolute Nucleated RBC 0.000 Nucleated RBC % (auto) 0.0 Sodium 145 Potassium 3.2 L Chloride 111 H Carbon Dioxide 27 Anion Gap 10 L BUN 7 L Creatinine 0.63 Estim Creat Clear Calc 88.9 Estimated GFR > 60 Random Glucose 70 Calcium 8.8 Imaging Chest x-ray: Radiologist's impression: ITS Impressions Chest X-Ray 12/22/23 23:04 IMPRESSION: No focal consolidation. Mildly coarsened appearance of the interstitium may reflect airways disease or subtle vascular congestion. Discharge Plan Discharge Anticipated Discharge Date/Time: 12/25/23 10:51 Patient Disposition: Home, Self-Care Discharge Diagnosis: Acute colitis Referrals: Bruce Acevedo III, MD [Primary Care Provider] - 1 Week Discharge Medications: New metronidazole 500 mg tablet 500 mg PO TID Qty: 15 0RF cefuroxime axetil 500 mg tablet 500 mg PO BID Qty: 10 0RF ondansetron 4 mg tablet,disintegrating 4 mg PO Q8H PRN (Reason: nausea and vomiting) Qty: 20 0RF meclizine 25 mg Tablet 25 mg PO TID PRN (Reason: Dizziness Or Vertigo) Qty: 15 0RF ondansetron 4 mg Tablet,Disintegrating 4 mg translingual Q8H PRN (Reason: Nausea) Qty: 15 0RF Continued fluticasone propion-salmeterol 250-50 mcg/dose blister with device 1 ea inhalation BID tizanidine 4 mg tablet 4 mg PO BID PRN (Reason: muscle spasm) baclofen 20 mg tablet 20 mg PO TID gabapentin 300 mg capsule 300 mg PO TID hydroxyzine HCl 25 mg tablet 25 mg PO Q8H PRN (Reason: anxiety) oxycodone 20 mg tablet 20 mg PO TID Rx Instructions: pt takes 20 mg TID and 1/2 tablet HS Combivent Respimat 20-100 mcg/actuation mist 1 puff inhalation QID PRN (Reason: Shortness Of Breath) aspirin 81 mg Tablet,Delayed Release (Dr/Ec) 81 mg PO DAILY oxycodone 20 mg tablet 10 mg PO BEDTIME Discharge Orders: Discharge Order (Routine); Ordered 12/27/23 Ordered By: Daisy Nava Diet: Advance to usual diet Activity on Discharge: As tolerated Stand Alone Forms: Patient Portal Discharge page Care Plan Goals: Read below Health Concerns: Read below Plan of Treatment: Read below Assessment: You were treated for infection with IV antibiotics with good response over the course of hospital stay. Continue Ceftin and Flagyl as prescribed Zofran as needed for nausea Meclizine as needed for vertigo advance your diet gradually at home follow with PCP in 2 weeks Discharge Date/Time: 12/27/23 11:01
[2023-12-25] MEDS: cefTRIAXone sodium 1 GM in 0.9 % Sodium Chloride 50 ML IV (11:31)
--- NOTE | 2023-12-25 12:11 | P.PNIM_ITS ---
Subjective Subjective Date of Service: 12/25/23 Interval History: Seen and evaluated this morning still complaining of LLQ pain and tenderness which is overall improving tolerating more PO reporting chorea movements in right arm no diarrhea overnight Review of Systems Review of Systems: Yes all other systems are reviewed and are negative Physical Exam 2 Vital Signs: Vital Signs: Last Vital Signs Temp 98 F 12/25/23 06:58 Pulse 70 12/25/23 08:29 Resp 18 12/25/23 08:29 BP 132/68 12/25/23 06:58 Pulse Ox 96 12/25/23 06:58 O2 Del Method Room Air 12/25/23 06:58 BMI result Body Mass Index 30.8 Const: Other: Constitutional : Awake, interactive, not in distress Neck : Normal inspection, Supple Cardiovascular : RRR, no JVP, no lower extremity edema Respiratory : good bilateral air entry, no crackles, wheezes or rhonchi Gastrointestinal: soft, lax, Normal bowel sounds, LLQ pain and tenderness Skin : Warm, Dry Neurological : Alert & oriented x3, No focal deficit, uncontrolled smooth chorea movements of right upper extremity Objective Data Active Medications Acetaminophen (Acetaminophen 325 Mg Tablet) 650 mg PO Q6H PRN PRN Reason: Pain, Mild (Pain Scale 1-3) Last Admin: 12/24/23 10:15 Dose: 650 mg Documented By: NANI Albuterol/Ipratropium (Albuterol/Iprat 2.5/0.5mg 3 Ml Ampul.Neb) 3 ml INHALE RQ4H WHILE AWAKE [facility] Last Admin: 12/25/23 11:47 Dose: Not Given Documented By: PARAS Non-Admin Reason: Nausea Comments: Pt refused Duoneb due to nausea Albuterol/Ipratropium (Albuterol/Iprat 2.5/0.5mg 3 Ml Ampul.Neb) 3 ml INHALE RQ6H PRN PRN Reason: Shortness Of Breath Amlodipine Besylate (Amlodipine Besylate 5 Mg Tablet) 5 mg PO DAILY [facility]; Protocol Last Admin: 12/25/23 07:59 Dose: 5 mg Documented By: KENYON Baclofen (Baclofen 20 Mg Tablet) 20 mg PO TID [facility] Last Admin: 12/25/23 08:00 Dose: 20 mg Documented By: KENYON Enoxaparin Sodium (Enoxaparin Sodium 40 Mg/0.4 Ml Syringe) 40 mg SUBCUT Q24H [facility] Last Admin: 12/24/23 22:07 Dose: 40 mg Documented By: MONICA Fluticasone/Vilanterol (Fluticasone/Vilanterol 100/25 Blst.W.Dev) 1 puff INHALE RDAILY [facility] Last Admin: 12/25/23 08:28 Dose: 1 puff Documented By: LOLIS Gabapentin (Gabapentin 300 Mg Capsule) 300 mg PO TID [facility] Last Admin: 12/25/23 07:59 Dose: 300 mg Documented By: KENYON Hydromorphone HCl (Hydromorphone Hcl 1 Mg/Ml Syringe) 1 mg IVPUSH Q6H PRN; Protocol PRN Reason: Pain, Severe (Pain Scale 7-10) Last Admin: 12/25/23 10:20 Dose: 1 mg Documented By: NANI Hydroxyzine HCl (Hydroxyzine Hcl 25 Mg Tablet) 25 mg PO Q8H PRN PRN Reason: anxiety Sodium Chloride (Ns) 1,000 mls @ 100 mls/hr IVCONT .Q10H [facility] Last Admin: 12/25/23 10:51 Dose: Not Given Documented By: NANI Non-Admin Reason: previos bag still running Metronidazole (Flagyl) 500 mg in 100 mls @ 100 mls/hr IV Q8H [facility] Last Infusion: 12/25/23 10:51 Dose: Infused Documented By: NANI Ceftriaxone Sodium 1 gm/ (Sodium Chloride) 50 mls @ 100 mls/hr IV Q24H [facility] Last Admin: 12/25/23 11:31 Dose: 100 mls/hr Documented By: NANI Metoclopramide HCl (Metoclopramide Hcl 10 Mg/2 Ml Vial) 5 mg IVPUSH Q6H PRN PRN Reason: Nausea and Vomiting Last Admin: 12/24/23 22:07 Dose: 5 mg Documented By: MONICA Ondansetron HCl (Ondansetron Hcl 4 Mg/2 Ml Vial) 4 mg IVPUSH Q8H PRN PRN Reason: Nausea and Vomiting Last Admin: 12/25/23 10:31 Dose: 4 mg Documented By: NANI Oxycodone HCl (Oxycodone Hcl Immed Release 5 Mg Tablet) 20 mg PO TID [facility] Last Admin: 12/25/23 07:59 Dose: 20 mg Documented By: KENYON Senna (Sennosides 8.6 Mg Tablet) 17.2 mg PO BEDTIME PRN PRN Reason: Constipation Last Admin: 12/24/23 11:37 Dose: 17.2 mg Documented By: NANI Comments: okayed to give at this time Sodium Chloride (0.9 % Sodium Chloride Flush 3 Ml Syringe) 3 ml IVFLUSH QSILFT [facility] Last Admin: 12/25/23 06:47 Dose: Not Given Documented By: NANI Non-Admin Reason: IV Running Tizanidine HCl (Tizanidine Hcl 4 Mg Tablet) 4 mg PO BID PRN PRN Reason: muscle spasm Last Admin: 12/24/23 10:16 Dose: 4 mg Documented By: NANI Labs 12/25/23 05:20 12/25/23 05:20 Labs: Laboratory Results - last 24 hr 12/25/23 05:20 MCV 83.2 MCH 26.1 L MCHC 31.3 RDW 14.8 Plt Count 253 D MPV 8.4 L Absolute Nucleated RBC 0.000 Nucleated RBC % (auto) 0.0 Anion Gap 10 L Estim Creat Clear Calc 88.9 Estimated GFR > 60 Random Glucose 70 Calcium 8.8 Assessment and Plan (1) Colitis: Status: Acute (2) Acute narcotic withdrawal: Status: Acute Plan 68-year-old female with history of hypertension, hyperlipidemia, history of [place], 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 intolerance and acute opiate withdrawal # LLQ abdominal pain 2/2 acute infective colitis continue IV Abx Ceftriaxone and Flagyl DC IVF Zofran p.r.n. advance to regular diet renal function electrolyte levels normal follow renal function, lytes # acute opiate withdrawal improved restarted home oxycodone 20 mg t.i.d. scheduled hydromorphone 1 mg q.6h as needed #HTN continue home meds if able, monitor bp closely #HLD continue statin #Chronic pain syndrome due to contracture LLE/bedbound status s/p multiple CVA continue baclofen if tolerated. hydromorphone as above # COPD asymptomatic CXR with no infiltrates DuoNebs q.4h while awake continue maintenance inhalers, albuterol p.r.n. DVT prophylaxis-Lovenox DNR/DNI Patient requires inpatient stay overnight due to intractable abdominal pain requiring IV fluid resuscitation, IV antiemetics, and IV pain meds pending safe discharge plan Quality Stroke Does the patient have a stroke diagnosis?: No VTE Prior VTE?: No VTE Risk Level:: Medical - moderate - high VTE Device Contraindication: Treatment Not Indicated VTE Drug Contraindication: N/A - Med Ordered
[2023-12-25] MEDS: diphenhydrAMINE HCL 50 MG/ML VIAL 25 MG IVPUSH (12:59)
--- NOTE | 2023-12-25 13:21 | MHC.CLN ---
F/U DIET=REGULAR. INTAKE APPROX 25%. SUPPLEMENT CHANGED TO ENSURE BID. PROVIDES 700 KCALS, 40 G PROTEIN. PATIENT WITH DTI TO LEFT HEEL. FOLLOW FOR INTAKE AD WOUND HEALING.
[2023-12-25 15:11] VITALS: BP 147/63; PULSE 86; RESP 19; TEMP 36.8; O2SAT 97
--- NOTE | 2023-12-25 15:31 | MHC.CM.PN ---
No DC today. Patient is not tolerating diet. She reports Nausea. DP to home resume [employer] via BLS.
[2023-12-25] MEDS: HYDROmorphone HCl 1 MG/ML SYRINGE 0.5 MG IVPUSH (16:19)
[2023-12-25] MEDS: TiZANidine HCL 4 MG TABLET PO (18:32)
[2023-12-25] MEDS: Acetaminophen 325 MG TABLET 650 MG PO (18:33)
[2023-12-25 19:17] VITALS: BP 97/52; PULSE 79; RESP 14; TEMP 37.4; O2SAT 94
[2023-12-25] MEDS: Enoxaparin Sodium 40 MG/0.4 ML SYRINGE SUBCUT (21:11)
[2023-12-26] MEDS: metroNIDAZOLE/NS 500 MG/100 ML PIGGYBACK 100 MG IV ×2 (02:44→09:49)
[2023-12-26 03:06] VITALS: BP 138/62; PULSE 63; RESP 16; TEMP 36.1; O2SAT 97
[2023-12-26 06:07] LABS: Hematocrit 38.7 % (37.0-47.0); Hemoglobin 12.2 g/dl (12.0-16.0); Mean Corpuscular HGB Conc 31.5 g/dl (31.0-35.0); Mean Corpuscular Hemoglobin 26.3 pg (27.0-33.0); Mean Corpuscular Volume 83.4 fL (80.0-98.0); Mean Platelet Volume 8.7 fL (9.4-12.3); Platelet Count 240 X10*3/uL (160-400); Red Blood Count 4.64 X10*6/uL (4.20-5.50); Red Cell Distribution Width 14.9 % (11.0-16.0)
[2023-12-26] MEDS: HYDROmorphone HCl 1 MG/ML SYRINGE 0.5 MG IVPUSH ×2 (06:07→22:06)
[2023-12-26 06:11] VITALS: BP 184/79; PULSE 64
[2023-12-26 06:18] LABS: Anion Gap 11 (12-20); Blood Urea Nitrogen 4 mg/dL (9-16); Calcium 8.2 mg/dL (8.4-10.2); Carbon Dioxide 25 mmol/L (22-29); Chloride 112 mmol/L (96-108); Creatinine Clr Calc Pharmacy 88.9; Estimated Glomerular Filt Rate > 60; Glucose Random 80 mg/dL (60-115); Potassium 3.2 mmol/L (3.3-5.1); Sodium 145 mmol/L (135-145)
[2023-12-26 07:46] VITALS: BP 126/88; PULSE 67; RESP 18; TEMP 36.6; O2SAT 98
[2023-12-26] MEDS: Fluticasone/Vilanterol 100/25 BLST.W.DEV 1 PUFF INHALE (08:06)
[2023-12-26 08:07] VITALS: PULSE 72; RESP 18; O2SAT 95
[2023-12-26] MEDS: oxyCODONE HCl Immed Release 5 MG TABLET 20 MG PO ×3 (08:24→20:14)
[2023-12-26] MEDS: Potassium Chloride ER 20 MEQ TAB.ER.PRT PO (08:25)
[2023-12-26] MEDS: Baclofen 20 MG TABLET PO ×3 (08:25→20:14)
[2023-12-26] MEDS: amLODIPine Besylate 5 MG TABLET PO (08:25)
[2023-12-26] MEDS: Gabapentin 300 MG CAPSULE PO ×3 (08:25→20:14)
[2023-12-26] MEDS: 0.9 % Sodium Chloride Flush 3 ML SYRINGE IVFLUSH ×2 (08:26→23:39)
[2023-12-26] MEDS: Aspirin Enteric Coated 81 MG TABLET.DR PO (12:20)
[2023-12-26] MEDS: cefTRIAXone sodium 1 GM in 0.9 % Sodium Chloride 50 ML IV (12:20)
--- NOTE | 2023-12-26 12:40 | MHC.CM.PN ---
Addendum entered by Katty Hawkins 12/27/23 09:46: PT REPORTS FEELING BETTER TODAY AND PER HOSPITALIST, WILL DC BLS TRANSPORT BOOKED WITH [facility] FOR 1100 HOURS Addendum entered by Katty Hawkins 12/26/23 16:14: DC HELD, PT C/O NAUSEA AND DIZZINESS Original Note: PT CLEARED TO DC TODAY, HOME WITH RESUMPTION OF 11/05 CARE BLS TRANSPORT ARRANGED FOR 1600 HOURS PT STATES SHE IS HAPPY TO BE GOING HOME AND WILL CALL FAMILY TO INFORM THEM OF TIME SHE CONFIRMS THEY WILL BE THERE WHEN SHE ARRIVES
[2023-12-26] MEDS: Ondansetron ODT 4 MG TAB.RAPDIS TRANSLINGU (15:57)
--- NOTE | 2023-12-26 15:58 | PC.NURSE ---
Discharge post pone due to nausea and dizziness per MD Mead
--- NOTE | 2023-12-26 15:58 | HO.PM.IMPN ---
Subjective Subjective Date of Service: 12/26/23 Interval History: Seen and evaluated this morning abdominal pain resolved tolerating more PO she was supposed to discharged but by the time of ambulance arrival she started to complain of vertigo and nausea so discharge cancelled no diarrhea overnight Review of Systems Review of Systems: Yes all other systems are reviewed and are negative Physical Exam Vital Signs: Vital Signs: Last Vital Signs Temp 98 F 12/26/23 07:46 Pulse 72 12/26/23 08:07 Resp 18 12/26/23 08:07 BP 126/88 12/26/23 07:46 Pulse Ox 98 12/26/23 07:46 O2 Del Method Room Air 12/26/23 07:46 BMI result Body Mass Index 30.8 Const: Other: Constitutional : Awake, interactive, not in distress Neck : Normal inspection, Supple Cardiovascular : RRR, no JVP, no lower extremity edema Respiratory : good bilateral air entry, no crackles, wheezes or rhonchi Gastrointestinal: soft, lax, Normal bowel sounds, no LLQ tenderness Skin : Warm, Dry Neurological : Alert & oriented x3, No focal deficit Objective Data Active Medications Acetaminophen (Acetaminophen 325 Mg Tablet) 650 mg PO Q6H PRN PRN Reason: Pain, Mild (Pain Scale 1-3) Last Admin: 12/25/23 18:33 Dose: 650 mg Documented By: NANI Albuterol/Ipratropium (Albuterol/Iprat 2.5/0.5mg 3 Ml Ampul.Neb) 3 ml INHALE RQ6H PRN PRN Reason: Shortness Of Breath Amlodipine Besylate (Amlodipine Besylate 5 Mg Tablet) 5 mg PO DAILY [facility]; Protocol Last Admin: 12/26/23 08:25 Dose: 5 mg Documented By: RICH Aspirin (Aspirin Enteric Coated 81 Mg Tablet.) 81 mg PO DAILY [facility] Last Admin: 12/26/23 12:20 Dose: 81 mg Documented By: RICH Baclofen (Baclofen 20 Mg Tablet) 20 mg PO TID [facility] Last Admin: 12/26/23 15:34 Dose: 20 mg Documented By: RICH Enoxaparin Sodium (Enoxaparin Sodium 40 Mg/0.4 Ml Syringe) 40 mg SUBCUT Q24H [facility] Last Admin: 12/25/23 21:11 Dose: 40 mg Documented By: SAAD Fluticasone/Vilanterol (Fluticasone/Vilanterol 100/25 Blst.W.Dev) 1 puff INHALE RDAILY [facility] Last Admin: 12/26/23 08:06 Dose: 1 puff Documented By: ROSANNA Gabapentin (Gabapentin 300 Mg Capsule) 300 mg PO TID [facility] Last Admin: 12/26/23 15:34 Dose: 300 mg Documented By: RICH Hydromorphone HCl (Hydromorphone Hcl 1 Mg/Ml Syringe) 0.5 mg IVPUSH Q6H PRN; Protocol PRN Reason: Pain, Severe (Pain Scale 7-10) Last Admin: 12/26/23 06:07 Dose: 0.5 mg Documented By: PETRA Hydroxyzine HCl (Hydroxyzine Hcl 25 Mg Tablet) 25 mg PO Q8H PRN PRN Reason: anxiety Metronidazole (Flagyl) 500 mg in 100 mls @ 100 mls/hr IV Q8H [facility] Last Infusion: 12/26/23 11:08 Dose: Infused Documented By: RICH Ceftriaxone Sodium 1 gm/ (Sodium Chloride) 50 mls @ 100 mls/hr IV Q24H [facility] Last Infusion: 12/26/23 12:58 Dose: Infused Documented By: RICH Meclizine HCl (Meclizine Hcl 25 Mg Tablet) 25 mg PO TID [facility] Ondansetron HCl (Ondansetron Hcl 4 Mg/2 Ml Vial) 4 mg IVPUSH Q8H PRN PRN Reason: Nausea and Vomiting Last Admin: 12/25/23 10:31 Dose: 4 mg Documented By: NANI Ondansetron HCl (Ondansetron Odt 4 Mg Tab.Rapdis) 4 mg TRANSLINGU Q8H PRN PRN Reason: Nausea Last Admin: 12/26/23 15:57 Dose: 4 mg Documented By: RICH Oxycodone HCl (Oxycodone Hcl Immed Release 5 Mg Tablet) 20 mg PO TID [facility] Last Admin: 12/26/23 15:34 Dose: 20 mg Documented By: RICH Senna (Sennosides 8.6 Mg Tablet) 17.2 mg PO BEDTIME PRN PRN Reason: Constipation Last Admin: 12/24/23 11:37 Dose: 17.2 mg Documented By: NANI Comments: okayed to give at this time Sodium Chloride (0.9 % Sodium Chloride Flush 3 Ml Syringe) 3 ml IVFLUSH QSHIFT FRANCES Last Admin: 12/26/23 08:26 Dose: 3 ml Documented By: RICH Tizanidine HCl (Tizanidine Hcl 4 Mg Tablet) 4 mg PO BID PRN PRN Reason: muscle spasm Last Admin: 12/25/23 18:32 Dose: 4 mg Documented By: NANI Labs 12/26/23 05:50 12/26/23 05:50 Labs: Laboratory Results - last 24 hr 12/26/23 05:50 MCV 83.4 MCH 26.3 L MCHC 31.5 RDW 14.9 Plt Count 240 MPV 8.7 L Absolute Nucleated RBC 0.000 Nucleated RBC % (auto) 0.0 Anion Gap 11 L Estim Creat Clear Calc 88.9 Estimated GFR > 60 Random Glucose 80 Calcium 8.2 L D Assessment and Plan (1) Vertigo: Status: Acute (2) Colitis: Status: Acute (3) Acute narcotic withdrawal: Status: Acute Plan 68-year-old female with history of hypertension, hyperlipidemia, history of OR, 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 intolerance and acute opiate withdrawal # Vertigo with nausea positional; likely BPPV MEclizine ATC Zofran stay well hydrated # LLQ abdominal pain 2/2 acute infective colitis IV Abx Ceftriaxone and Flagyl changed to PO Zofran p.r.n. advance to regular diet renal function electrolyte levels normal follow renal function, lytes # acute opiate withdrawal resolved restarted home oxycodone 20 mg t.i.d. scheduled hydromorphone 1 mg q.6h as needed #HTN continue home meds if able, monitor bp closely #HLD continue statin #Chronic pain syndrome due to contracture LLE/bedbound status s/p multiple CVA continue baclofen if tolerated. hydromorphone as above # COPD asymptomatic CXR with no infiltrates DuoNebs q.4h while awake continue maintenance inhalers, albuterol p.r.n. DVT prophylaxis-Lovenox DNR/DNI Patient requires inpatient stay overnight due to vertigo and nausea pending clinical improvement Quality Stroke Does the patient have a stroke diagnosis?: No VTE Prior VTE?: No VTE Risk Level:: Medical - moderate - high VTE Device Contraindication: Treatment Not Indicated VTE Drug Contraindication: N/A - Med Ordered
[2023-12-26 16:00] VITALS: BP 137/73; PULSE 81; RESP 18; TEMP 36; O2SAT 97
[2023-12-26] MEDS: Meclizine HCl 25 MG TABLET PO ×2 (16:12→20:14)
[2023-12-26 20:00] VITALS: BP 143/67; PULSE 72; RESP 14; TEMP 36.3; O2SAT 98
[2023-12-26] MEDS: metroNIDAZOLE 500 MG TABLET PO (20:20)
[2023-12-26] MEDS: Enoxaparin Sodium 40 MG/0.4 ML SYRINGE SUBCUT (20:20)
[2023-12-26] MEDS: Sennosides 8.6 MG TABLET 17.2 MG PO (20:27)
[2023-12-26] MEDS: ondansetron HCL 4 MG/2 ML VIAL IVPUSH (22:06)
[2023-12-27 03:29] VITALS: BP 120/68; PULSE 63; RESP 16; TEMP 36.6; O2SAT 96
[2023-12-27] MEDS: metroNIDAZOLE 500 MG TABLET PO (06:26)
[2023-12-27 07:10] VITALS: BP 165/74; PULSE 67; RESP 16; TEMP 36.3; O2SAT 95
[2023-12-27] MEDS: Fluticasone/Vilanterol 100/25 BLST.W.DEV 1 PUFF INHALE (08:32)
[2023-12-27 08:33] VITALS: PULSE 69; RESP 18; O2SAT 97
[2023-12-27] MEDS: oxyCODONE HCl Immed Release 5 MG TABLET 20 MG PO (09:06)
[2023-12-27] MEDS: 0.9 % Sodium Chloride Flush 3 ML SYRINGE IVFLUSH (09:06)
[2023-12-27] MEDS: Gabapentin 300 MG CAPSULE PO (09:07)
[2023-12-27] MEDS: Meclizine HCl 25 MG TABLET PO (09:07)
[2023-12-27] MEDS: amLODIPine Besylate 5 MG TABLET PO (09:07)
[2023-12-27] MEDS: Aspirin Enteric Coated 81 MG TABLET.DR PO (09:07)
[2023-12-27] MEDS: Baclofen 20 MG TABLET PO (09:07)
--- NOTE | 2023-12-27 10:18 | PC.NURSE ---
Pt tolerated 100% of her breakfast , pt cleared for discharge to home , pt accepting of discharge
== END 2023-12-27 11:01 | disposition home or self-care (01) | DRG 392 ==
LOC: HO.ED 22:31 → HO.EDOVER 22:54 → HO.S3 12-23 18:30
PROVIDERS: Admitting Provider Physician Assistant; Emergency Provider Emergency Medicine Emergency Medical Services; PCP Internal Medicine; Visit Provider Student in an Organized Health Care Education/Training Program
DX: A08.4 Viral intestinal infection, unspecified (principal); F11.93 Opioid use, unspecified with withdrawal; G89.4 Chronic pain syndrome; F17.210 Nicotine dependence, cigarettes, uncomplicated; Z66 Do not resuscitate; Z71.6 Tobacco abuse counseling; M62.462 Contracture of muscle, left lower leg; J44.9 Chronic obstructive pulmonary disease, unspecified; E78.5 Hyperlipidemia, unspecified; Z20.822 Contact with and (suspected) exposure to COVID-19; Z74.01 Bed confinement status; Z79.51 Long term (current) use of inhaled steroids; Z79.82 Long term (current) use of aspirin; Z79.899 Other long term (current) drug therapy
CPT/HCPCS: 0241U; 36415; 71045; 80048; 80053; 83690; 85025; 85027; 85730; 93005; 99285; J0696; J1170; J1200; J1650; J1836; J2405; J2765

== ENCOUNTER 2023-12-22 22:39 | Outpatient (BNV) | payer OTHER, SELFPAY | END 2023-12-25 19:14 | PROVIDERS: Admitting Provider Physician Assistant; Emergency Provider Emergency Medicine Emergency Medical Services; PCP Internal Medicine; Visit Provider Internal Medicine Cardiovascular Disease | DX: R07.9 Chest pain, unspecified (principal) | CPT/HCPCS: 93010 ==

== ENCOUNTER → 2023-12-22 22:39 | Outpatient (BNV) | payer MEDICARE, MEDICAID, SELFPAY | PROVIDERS: Admitting Provider Physician Assistant; Emergency Provider Emergency Medicine Emergency Medical Services; PCP Internal Medicine; Visit Provider Physician Assistant | DX: K52.9 Noninfective gastroenteritis and colitis, unspecified (principal); F11.93 Opioid use, unspecified with withdrawal | CPT/HCPCS: 99223; 99232; 99233; 99239 ==

== ENCOUNTER 2024-01-22 11:21 | Inpatient (IN) | payer OTHER, SELFPAY ==
[2024-01-22] VITALS (11 sets, daily range): BP systolic 125–172; BP diastolic 53–89; PULSE 79–140; RESP 12–20; TEMP 36.4–37.2; O2SAT 93–100; BMI 32.2; BMI 28.1
--- NOTE | ~2024-01-22 | CT_ITS ---
EXAMINATION: CT head/brain wo IV con CLINICAL INFORMATION: Reason for Exam altered mental status COMPARISON: None. TECHNIQUE: Contiguous axial imaging was performed from the skull base to vertex without intravenous contrast. Sagittal and coronal reformatted images were obtained. This CT examination was performed using dose optimization techniques as appropriate, variously including the following: * Automated exposure control * Adjustment of mA and/or kV according to patient size (this includes techniques or standardized protocols for targeted exams where dose is matched to indication/reason for exam; i.e. extremities or head) Use of iterative reconstruction technique DLP: 1780.5 mGy-cm FINDINGS: Motion degraded examination No acute osseous or soft tissue abnormality. The mastoid air cells and visualized portions of the paranasal sinuses are well aerated. There is no evidence of acute intracranial hemorrhage or territorial infarction. No abnormal mass effect or midline shift is seen. [place] to white matter differentiation is well preserved. No extra-axial fluid collections are identified. Partially empty sella. No hydrocephalus. Proportional prominence of the ventricles and sulcal spaces is consistent with mild volume loss. Patchy periventricular and deep white matter hypoattenuation is consistent with moderate small vessel ischemic changes. There is an age-indeterminate lacunar infarct in the left thalamus. CT/CT head/brain wo IV con IMPRESSION: Motion degraded examination. Within this limitation: 1. No acute intracranial hemorrhage, mass effect, hydrocephalus, or acute territorial edematous infarction. 2. Moderate chronic white matter microangiopathy and age-indeterminate but favored chronic lacunar infarct in the left thalamus.
--- NOTE | ~2024-01-22 | CT_ITS ---
EXAMINATION: CT ABDOMEN AND PELVIS WITH CONTRAST CLINICAL INFORMATION: Sepsis with abdominal tenderness. COMPARISON: None available. TECHNIQUE: Multidetector volumetric images were obtained from the superior aspect of the liver through the pubic symphysis following administration 85 mL of Omnipaque 350 intravenous contrast. Sagittal and coronal reformatted images were obtained on the technologist's workstation. Oral contrast: No This CT examination was performed using dose optimization techniques as appropriate, variously including the following: *Automated exposure control *Adjustment of mA and/or kV according to patient size (this includes techniques or standardized protocols for targeted exams where dose is matched to indication/reason for exam; i.e. extremities or head) *Use of iterative reconstruction technique DLP: 1106.5 mGy-cm FINDINGS: Motion artifact degrades evaluation. LUNG BASES: No confluent parenchymal disease. No pleural or pericardial effusion. Coronary artery calcification present. Bilateral breast implants are present. LIVER, GALLBLADDER, AND BILIARY TREE: The liver is normal in size, shape, and attenuation. Pneumobilia is present. No focal hepatic lesion. There is mild biliary ductal dilatation is present centrally. Status post cholecystectomy. Common bile duct measures up to 1.5 cm in diameter. There is a 5 mm calcific density seen at the level of the ampulla, which may represent a distal common bile duct stone or lie directly adjacent to the distal common bile duct. PANCREAS: The pancreas is atrophic. No definite pancreatic masses appreciated. No peripancreatic inflammatory change. SPLEEN: There is splenomegaly with vertical span of 15 cm. ADRENAL GLANDS: Unremarkable. KIDNEYS AND URETERS: The kidneys are normal in size, shape, and attenuation. No hydronephrosis, hydroureter, or calculi seen. No perinephric stranding. There is a 5 mm low-density lesion seen within the right renal cortex likely representing a small cyst or angiomyolipoma. This does not require follow up. BLADDER: There is dependent increased density present, which may be related to a recent contrast study or be related to bladder calculi. There is mild bladder wall thickening. GASTROINTESTINAL TRACT: No dilated loops of large or small bowel are evident. No free air or free fluid is appreciated. Evaluation of the colon is limited due to the motion artifact; however, no definite pericolonic fat stranding is seen and no abscess collection is appreciated. The appendix is not identified; however, no secondary evidence of acute appendicitis is seen. ABDOMINAL WALL: No significant hernia is appreciated. LYMPH NODES: No lymphadenopathy appreciated. VASCULAR: There is moderate aortoiliac calcified plaque present. There is an infrarenal abdominal aortic aneurysm, which measures approximately 3.2 cm in diameter and extends down to the aortic bifurcation but not into the common iliac arteries. A patent inferior mesenteric artery emanates just proximal to the aneurysm neck. PELVIC VISCERA: No significant abnormality appreciated. OSSEOUS STRUCTURES: There is osteopenia. There is degenerative change of the hip joints bilaterally with subchondral cyst formation. The sacroiliac joints demonstrate some degenerative process with what appears to be regions of narrowing and there appears to be some degree of ankylosis seen bilaterally. A sacral insufficiency fracture cannot be excluded. There is a severe compression fracture central aspect of the L3 vertebral body with approximately 90% loss of height. There is a compression fracture of the superior endplate of L5 with approximately 30% loss of height. There is bilateral facet arthropathy L4-S1. CT/CT abdomen pelvis w IV con IMPRESSION: Question distal common bile duct calculus with common bile duct measuring up to 1.5 cm in diameter and with some mild central intrahepatic bile duct prominence. No evidence of obstructive uropathy. Probable bladder calculi. No evidence of bowel ileus or obstruction. 3.2 cm infrarenal abdominal aortic aneurysm for which follow up every 3 years is recommended. Osteopenia with bony findings as described above. Fleischner guidelines were followed.
--- NOTE | ~2024-01-22 | XR_ITS ---
EXAMINATION: XR CHEST CLINICAL INFORMATION: Sepsis COMPARISON: Previous chest x-ray most recent 12/22/2023 TECHNIQUE: Frontal view of the chest was obtained. FINDINGS: Cardiac and mediastinal contours are stable. The lungs are clear. No pleural effusion or pneumothorax. There are bilateral breast implants. XR/XR chest 1V IMPRESSION: No evidence for acute disease in the chest.
--- NOTE | ~2024-01-22 | US_ITS ---
EXAMINATION: US ABDOMEN LIMITED CLINICAL INFORMATION: Recheck CBD diameter. COMPARISON: Abdominal ultrasound 01/23/2024. TECHNIQUE: Targeted ultrasound of the common bile duct was performed. FINDINGS: The common bile duct measures 6 mm proximally and 10 mm distally. There is a question of a 1.4 cm choledocholithiasis at the level the pancreatic head. The duct measured up to 12 mm on the prior ultrasound without significant change compared to prior. US/US abdomen limited IMPRESSION: Dilated common bile duct measuring up to 10 mm in diameter with possible 1.4 cm stone in the distal duct.
--- NOTE | ~2024-01-22 | NM_ITS ---
EXAMINATION: BILIARY TRACT IMAGING STUDY CLINICAL INDICATION: Enlarged CBD and possible choledocholithiasis. Status post cholecystectomy. COMPARISON: Targeted right upper quadrant abdominal ultrasound done on 02/05/2024 and 01/23/[address] of the abdomen and pelvis done on 01/22/2024. TECHNIQUE: Scintillation camera images were obtained over the abdomen for an observation of 60 minutes following the intravenous administration of 4.5 millicuries technetium 99m mebrofenin.. FINDINGS: There is good concentration of activity in the liver by 5 minutes post injection. Biliary activity is well visualized by 10 minutes, and there is good visualization of small bowel activity by 15 minutes. The gallbladder is surgically absent. NM/NM hepatobiliary wo pharm IMPRESSION: 1. The gallbladder is surgically absent. 2. The common bile duct is functionally patent. Follow-up MRCP may be considered to exclude partial obstruction and/or further confirmation of previous sonographic suspected choledocholithiasis. 3. Liver function appears normal.
--- NOTE | ~2024-01-22 | NM_ITS ---
EXAMINATION: THREE PHASE BONE SCAN CLINICAL INFORMATION: Hip pain, rule out osteomyelitis.. COMPARISON: No previous bone scan is available for comparison. A radiograph of the chest dated 01/22/2024 0 only radiograph available for comparison. The diagnostic CT scan of the abdomen and pelvis, dated 01/22/2024, is available for comparison.. TECHNIQUE: Initial rapid sequence images were obtained over the pelvis and hips in the anterior and posterior projections during the bolus injection of 27 mCi Tc-99m MDP. Static images of the midthoracic spine to the distal lower legs in multiple projections were then obtained 2.75 hours post injection. FINDINGS: Initial rapid sequence images show bilaterally symmetrical flow to the pelvis hips and proximal femurs. There are no foci of abnormally increased flow at any site. The visualized vascular flow is bilaterally symmetrical. Blood pool images obtained immediately following the flow study show symmetrical blood pool activity in the pelvis and hips. There is some increased blood pool activity in the proximal medial left thigh which appears to be in the muscular soft tissues.. The delayed static images show mildly increased activity diffusely in both knees and in the acetabula bilaterally, but without a focus of more prominently increased activity. In the visualized spine there is a minimal thoracolumbar scoliosis with lumbar convexity to the left. The urinary bladder and faint visualization of both kidneys are noted. A bladder catheter is in place. NM/NM bone scan limited area IMPRESSION: No evidence of osteomyelitis. Mildly increased activity in the acetabula bilaterally and in the knees bilaterally is nonspecific but likely arthritic or degenerative in etiology..
--- NOTE | ~2024-01-22 | US_ITS ---
EXAMINATION: US ABDOMEN LIMITED CLINICAL INFORMATION: CAT scan with question of CBD stone and dilation to 1.5 cm, question cholangitis. COMPARISON: CT abdomen and pelvis 01/22/2024. TECHNIQUE: Real-time imaging of the region of the gallbladder fossa and common bile duct. FINDINGS: GALLBLADDER: Surgically absent. COMMON BILE DUCT: Common duct is dilated and measures up to 1.2 cm proximally. The duct cannot be visualized more distally secondary to patient motion and bowel gas. US/US abdomen limited IMPRESSION: Common duct dilation to 1.2 cm suggesting obstruction however the duct cannot be visualized more distally. MRCP or ERCP could be considered.
--- NOTE | 2024-01-22 12:05 | ED_ITS ---
HPI - General Adult General Chief complaint: Altered Mental Status Stated complaint: PAIN THROUGHOUT BODY BEDBOUND Time Seen by Provider: 01/22/24 12:01 Related Data Home Medications ?Medication ?Instructions ?Recorded ?Confirmed aspirin 81 mg tablet,delayed 81 mg PO DAILY 12/23/23 12/23/23 release baclofen 20 mg tablet 20 mg PO TID 12/23/23 12/23/23 fluticasone 250 mcg-salmeterol 50 1 ea inhalation BID 12/23/23 12/23/23 mcg/dose blistr powdr for inhalation gabapentin 300 mg capsule 300 mg PO TID 12/23/23 12/23/23 hydroxyzine HCl 25 mg tablet 25 mg PO Q8H PRN anxiety 12/23/23 12/23/23 ipratropium 20 mcg-albuterol 100 1 puff inhalation QID PRN 12/23/23 12/23/23 mcg/actuation mist for inhalation Shortness Of Breath (Combivent Respimat) oxycodone 20 mg tablet 10 mg PO BEDTIME 12/23/23 12/23/23 oxycodone 20 mg tablet 20 mg PO TID 12/23/23 12/23/23 tizanidine 4 mg tablet 4 mg PO BID PRN muscle spasm 12/23/23 12/23/23 Previous Rx's ?Medication ?Instructions ?Recorded cefuroxime axetil 500 mg tablet 500 mg PO BID #10 tabs 12/25/23 metronidazole 500 mg tablet 500 mg PO TID #15 tabs 12/25/23 ondansetron 4 mg disintegrating 4 mg PO Q8H PRN nausea and 12/25/23 tablet vomiting #20 tabs meclizine 25 mg tablet 25 mg PO TID PRN Dizziness Or 12/27/23 Vertigo #15 tabs ondansetron 4 mg disintegrating 4 mg translingual Q8H PRN Nausea 12/27/23 tablet #15 tabs Allergies Allergy/AdvReac Type Severity Reaction Status Date / Time No Known Allergies Allergy Verified 01/22/24 11:39 [facility] Past Medical History Medical History Paresis of lower extremity 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 Bedbound History of CVA (cerebrovascular accident) Coronary artery disease Hyperlipidemia Hypertension Social History Social History Household Members: Family Household Members Other:: 6 Housing: House Do you presently have visiting nurse or other home services: Yes (w/[employer]) Unable to assess alcohol history related to: Unable to respond Comment: pt complete immobile Patient Tobacco Use Status: Former Tobacco user Quit Date: week ago Tobacco use type: Cigarette Cigarette Packs Per Day: 1 Cigarettes Per Day: 20.0 Smoked in Last 30 Days: Yes Second Hand Smoke Exposure: Yes Use of substances other than those prescribed or required for medical reasons: Unable to respond Substance Use Type: Opiates Advance Directives: No Advance Directives Information Provided: Yes service: No Physical Exam ED Vital Signs: Vital Signs - 24 hr 01/22/24 11:34 01/22/24 11:59 01/22/24 13:53 Temperature 99.0 F 97.6 F Pulse Rate 140 H 92 Respiratory Rate 16 12 Blood Pressure 152/53 H 125/65 Pulse Oximetry 99 93 Oxygen Delivery Method Room Air Room Air 01/22/24 14:33 01/22/24 15:15 01/22/24 16:05 Temperature 98.5 F 97.6 F Pulse Rate 87 87 79 Respiratory Rate 16 14 18 Blood Pressure 159/79 H 146/89 H 156/71 H Pulse Oximetry 97 100 99 Oxygen Delivery Method Room Air Room Air Room Air 01/22/24 16:28 Temperature Pulse Rate 93 Respiratory Rate 18 Blood Pressure 172/75 H Pulse Oximetry 96 Oxygen Delivery Method Room Air BMI result Body Mass Index 32.2 Const Other: The patient is a chronically ill-appearing 68-year-old woman who looks very poorly kempt and is screaming as if in pain. She seems demented and is unable to tell me where she is having pain. HENMT Other: Face is symmetrical. Mucous membranes dry. Eyes Other: Pupils are round equal, conjunctivae are clear, extraocular movements intact Neck Other: No JVD, no nuchal rigidity, neck is supple, no adenopathy. Chest Other: The chest wall is exquisitely tender Cardio Rate: regular rate Rhythm: regular rhythm Heart sounds: S1 normal heart sound present and S2 normal heart sound present GI Other: The patient's abdomen is diffusely tender. She begins screaming even if I just gently touch her abdomen. Skin Other: The skin is pale and dry. There is some slight skin erythema in the sacral area. Neuro Other: Patient for the most part was screaming as if in pain very consistently. Occasionally she would stop screaming and then seemed to have a normal interaction briefly. She does not seem to have any facial asymmetry. Her eye movements seem intact. She does not seem to have dysarthria but her speech content is poor and seems consistent with dementia. She is able to move both of her arms easily unwell. With regard to her leg she can wiggle her toes on both feet but she does not move either leg. Family states that she never moves her leg and that she always has pain with moving her legs. Extrem Other: The patient's upper extremities are unremarkable. Both of her lower extremities she is keeping bent of the hips and the knees. She resists any attempts to examine her or even touch her legs. There is no obvious calf swelling or asymmetry. She has good pulses in both feet. Course Reevaluation(s) Reevaluation #1: Sepsis focused exam: At this moment her heart rate is 73, oxygen saturation on room air is 98%, respiratory rate is 11, blood pressure is 175/79. She has good pulses in her wrists and her feet. Her skin is warm and dry. Her heart rate is normal and regular, her lungs are clear. Her mental status is consistent with chronic dementia. Her capillary refill is good. Time: 16:57 Medications Administered Discontinued Medications Generic Name Dose Route Start Last Admin Trade Name Sekouq PRN Reason Stop Dose Admin Droperidol 1.25 mg 01/22/24 12:05 01/22/24 12:14 Droperidol 5 Mg/2 Ml Vial IVPUSH 01/22/24 12:06 1.25 mg ONCE ONE Administration Droperidol 1.25 mg 01/22/24 14:06 01/22/24 14:38 Droperidol 5 Mg/2 Ml Vial IVPUSH 01/22/24 14:07 1.25 mg ONCE ONE Administration Droperidol 1.25 mg 01/22/24 17:41 01/22/24 17:48 Droperidol 5 Mg/2 Ml Vial IVPUSH 01/22/24 17:42 1.25 mg ONCE ONE Administration Hydromorphone HCl 1 mg 01/22/24 12:01/22/24 12:14 Hydromorphone Hcl 1 Mg/Ml Syringe IVPUSH 01/22/24 12:06 1 mg ONCE ONE Administration Protocol Hydromorphone HCl 1 mg 01/22/24 12:47 01/22/24 13:40 Hydromorphone Hcl 1 Mg/Ml Syringe IVPUSH 01/22/24 12:48 1 mg ONCE ONE Administration Protocol Hydromorphone HCl 1 mg 01/22/24 14:06 01/22/24 14:38 Hydromorphone Hcl 1 Mg/Ml Syringe IVPUSH 01/22/24 14:07 1 mg ONCE ONE Administration Protocol Sodium Chloride 2,634 mls @ 2,634 mls/hr 01/22/24 12:26 01/22/24 16:00 Ns 30 ml/kg infuse over 1 hr (2634 ml) 01/22/24 13:25 Infused IV Infusion .Q1H STA Piperacillin Sod/Tazobactam 100 mls @ 200 mls/hr 01/22/24 12:26 01/22/24 13:15 Sod 4.5 gm/ Sodium Chloride IV 01/22/24 12:55 Infused ONCE ONE Infusion Vancomycin HCl 2,000 mg in 500 mls @ 250 mls/hr 01/22/24 12:28 01/22/24 16:01 Vancomycin/Ns IV 01/22/24 14:27 Infused ONCE ONE Infusion Lactated Ringer's 1,000 mls @ 999 mls/hr 01/22/24 16:45 01/22/24 17:48 Lr IV 01/22/24 17:45 999 mls/hr .Q1H1M FRANCES Administration Iohexol 100 ml 01/22/24 13:47 01/22/24 13:48 Iohexol 350 Mg/Ml 100 Ml Infus..Btl IV 01/22/24 13:48 85 ml ONCE ONE Administration Medical Decision Making Medical Decision Making MDM Narrative: The patient is challenging to evaluate. She is demented. She is bed-bound at baseline. She has not walked for years. She has chronic pain problems and is on regular oxycodone and baclofen. She has dementia and is unable to localize her pain or her symptoms. She was tachycardic and hypertensive but not febrile. Labs were sent including blood cultures and a lactic acid. Her lactate was elevated at 4.4. [place] [address]. I believe she is dehydrated. Her hemoglobin and hematocrit are both elevated at 15.9 and 50.1. Clinically she looks dehydrated. Although her white count is 17.9 she does not have a dramatic left shift. She has 77% neutrophils. Her CRP is 10.56 but her procalcitonin is only 0.02. The patient was treated as if she might be septic and was given Zosyn and vancomycin as well as 30 mL/kilos of IV fluids. Her lactate improved from 4.4- 2.2. At no point was she hypotensive. Her physical exam is complicated because she screams in pain when I touch virtually every part of her body. Additionally, although she spent most of the time in the emergency room screaming as though in pain, I could occasionally engage her attention and she did not seem uncomfortable for very brief periods. A CT scan of the abdomen and pelvis was done to help try to elucidate the source of the patient's illness. This shows a question of a ductal stone but she really does not have LFT abnormalities to suggest that she has cholangitis. Overall I continued to feel the patient's condition is extremely challenging and I think that hospitalization with supportive care is probably the most reasonable approach to this patient's presentation today. The patient will be admitted to the hospitalist service Lab Data 01/22/24 11:56 01/22/24 11:56 Labs: Lab Results 01/22/24 01/22/24 01/22/24 Range/Units 11:56 11:56 11:58 WBC 17.9 H (4.8-10.8) X10*3/uL RBC 6.07 H D (4.20-5.50) X10*6/uL Hgb 15.9 D (12.0-16.0) g/dl Hct 50.1 H D (37.0-47.0) % MCV 82.5 (80.0-98.0) fL MCH 26.2 L (27.0-33.0) pg MCHC 31.7 (31.0-35.0) g/dl RDW 16.3 H (11.0-16.0) % Plt Count 475 H D (160-400) X10*3/uL MPV 8.9 L (9.4-12.3) fL Immature Gran % (Auto) 0.4 (0.0-0.4) % Neut % (Auto) 77.0 H (45-73) % Lymph % (Auto) 17.6 L (20-40) % Henderson % (Auto) 4.4 (2-11) % Eos % (Auto) 0.2 (0-4) % Baso % (Auto) 0.4 (0-2) % Lymph # (Auto) 3.2 (1.2-4.9) X10*3/uL Henderson # (Auto) 0.8 (0.1-1.2) X10*3/uL Eos # (Auto) 0.0 (0.0-0.4) X10*3/uL Baso # (Auto) 0.1 (0.0-0.2) X10*3/uL Abs Immat Gran (auto) 0.08 H (0.00-0.03) X10*3/uL Absolute Neuts (auto) 13.8 H (2.0-8.3) x10*3/uL Absolute Nucleated RBC 0.000 (0.0-0.012) X10*3/uL Nucleated RBC % (auto) 0.0 (0.0-0.2) /100WBC PT (11.1-13.3) SEC INR (0.9-1.1) VBG pH (7.32-7.43) VBG pCO2 mmHg VBG pO2 mmHg VBG HCO3 (22-26) mmol/L VBG O2 Saturation % VBG Base Excess mmol/L Sodium 142 (135-145) mmol/L Potassium 4.2 D (3.3-5.1) mmol/L Chloride 106 (96-108) mmol/L Carbon Dioxide 21 L (22-29) mmol/L Anion Gap 19 (12-20) BUN 8 L (9-16) mg/dL Creatinine 0.62 (0.5-1.4) mg/dL Estim Creat Clear Calc 92.4 Estimated GFR > 60 Random Glucose 113 (60-115) mg/dL Lactic Acid 4.4 H* (0.5-2.0) mmol/L Lactic Acid F/U @ 2Hr (0.5-2.0) mmol/L Calcium 9.9 D (8.4-10.2) mg/dL Magnesium 2.4 (1.6-2.6) mg/dL Total Bilirubin 0.8 (0.0-1.0) mg/dL AST 20 (5-31) U/L ALT 11 (0-31) U/L Alkaline Phosphatase 167 H (39-117) U/L Ammonia 33 (13-55) umol/L Total Creatine Kinase Cancelled 77 Troponin I High Sens 4.5 (<3.5-17.0) ng/L C-Reactive Protein 10.56 H (< or = 0.50) mg/dL Total Protein 7.4 (6.5-8.0) g/dL Albumin 3.7 (3.5-5.0) g/dL Procalcitonin ng/mL Urine Color Yellow Urine Appearance Turbid Urine pH >= 9.0 (5.0-9.0) Ur Specific Novi 1.010 (1.005-1.025) Urine Protein Negative (Neg-Trace) mg/dL Urine Glucose (UA) Negative (Negative) mg/dL Urine Ketones Trace (Negative) mg/dL Urine Blood Negative (Negative) Urine Nitrite Negative (Negative) Ur Leukocyte Esterase Negative (Negative) Ethyl Alcohol < 10 mg/dL Influenza Type A (PCR) (Negative) Influenza Type B (PCR) (Negative) RSV RNA Qual (PCR) (Negative) SARS-CoV-2 RNA (RT-PCR) (Negative) 01/22/24 01/22/24 01/22/24 Range/Units 12:10 15:11 15:19 WBC (4.8-10.8) X10*3/uL RBC (4.20-5.50) X10*6/uL Hgb (12.0-16.0) g/dl Hct (37.0-47.0) % MCV (80.0-98.0) fL MCH (27.0-33.0) pg MCHC (31.0-35.0) g/dl RDW (11.0-16.0) % Plt Count (160-400) X10*3/uL MPV (9.4-12.3) fL Immature Gran % (Auto) (0.0-0.4) % Neut % (Auto) (45-73) % Lymph % (Auto) (20-40) % Henderson % (Auto) (2-11) % Eos % (Auto) (0-4) % Baso % (Auto) (0-2) % Lymph # (Auto) (1.2-4.9) X10*3/uL Henderson # (Auto) (0.1-1.2) X10*3/uL Eos # (Auto) (0.0-0.4) X10*3/uL Baso # (Auto) (0.0-0.2) X10*3/uL Abs Immat Gran (auto) (0.00-0.03) X10*3/uL Absolute Neuts (auto) (2.0-8.3) x10*3/uL Absolute Nucleated RBC (0.0-0.012) X10*3/uL Nucleated RBC % (auto) (0.0-0.2) /100WBC PT 11.6 (11.1-13.3) SEC INR 1.0 (0.9-1.1) VBG pH 7.41 (7.32-7.43) VBG pCO2 37 mmHg VBG pO2 46 mmHg VBG HCO3 23 (22-26) mmol/L VBG O2 Saturation 73.0 % VBG Base Excess -0.2 mmol/L Sodium (135-145) mmol/L Potassium (3.3-5.1) mmol/L Chloride (96-108) mmol/L Carbon Dioxide (22-29) mmol/L Anion Gap (12-20) BUN (9-16) mg/dL Creatinine (0.5-1.4) mg/dL Estim Creat Clear Calc Estimated GFR Random Glucose (60-115) mg/dL Lactic Acid (0.5-2.0) mmol/L Lactic Acid F/U @ 2Hr 2.2 H* (0.5-2.0) mmol/L Calcium (8.4-10.2) mg/dL Magnesium (1.6-2.6) mg/dL Total Bilirubin (0.0-1.0) mg/dL AST (5-31) U/L ALT (0-31) U/L Alkaline Phosphatase (39-117) U/L Ammonia (13-55) umol/L Total Creatine Kinase Troponin I High Sens (<3.5-17.0) ng/L C-Reactive Protein (< or = 0.50) mg/dL Total Protein (6.5-8.0) g/dL Albumin (3.5-5.0) g/dL Procalcitonin 0.02 ng/mL Urine Color Urine Appearance Urine pH (5.0-9.0) Ur Specific Novi (1.005-1.025) Urine Protein (Neg-Trace) mg/dL Urine Glucose (UA) (Negative) mg/dL Urine Ketones (Negative) mg/dL Urine Blood (Negative) Urine Nitrite (Negative) Ur Leukocyte Esterase (Negative) Ethyl Alcohol mg/dL Influenza Type A (PCR) NEGATIVE (Negative) Influenza Type B (PCR) NEGATIVE (Negative) RSV RNA Qual (PCR) NEGATIVE (Negative) SARS-CoV-2 RNA (RT-PCR) NEGATIVE (Negative) Critical Care Time Critical Care Time Critical Care Time: Yes Total Critical Care Time: 60 Attestation: The patient was critically ill with a high probability of imminent or life- threatening deterioration. ?I spent greater than 30 minutes of discontinuous time evaluating the patient, delivering critical care at the bedside, discussing evaluating data with consultants. ?Critical care time does not include time spent performing separately billable procedures or teaching. ?Time spent performing critical care with 60 minutes. Discharge Plan Discharge Prescriptions: No Action fluticasone propion-salmeterol 250-50 mcg/dose blister with device 1 ea inhalation BID tizanidine 4 mg tablet 4 mg PO BID PRN (Reason: muscle spasm) baclofen 20 mg tablet 20 mg PO TID gabapentin 300 mg capsule 300 mg PO TID hydroxyzine HCl 25 mg tablet 25 mg PO Q8H PRN (Reason: anxiety) oxycodone 20 mg tablet 20 mg PO TID Rx Instructions: pt takes 20 mg TID and 1/2 tablet HS Combivent Respimat 20-100 mcg/actuation mist 1 puff inhalation QID PRN (Reason: Shortness Of Breath) aspirin 81 mg Tablet,Delayed Release (Dr/Ec) 81 mg PO DAILY oxycodone 20 mg tablet 10 mg PO BEDTIME metronidazole 500 mg tablet 500 mg PO TID Qty: 15 0RF cefuroxime axetil 500 mg tablet 500 mg PO BID Qty: 10 0RF ondansetron 4 mg tablet,disintegrating 4 mg PO Q8H PRN (Reason: nausea and vomiting) Qty: 20 0RF meclizine 25 mg Tablet 25 mg PO TID PRN (Reason: Dizziness Or Vertigo) Qty: 15 0RF ondansetron 4 mg Tablet,Disintegrating 4 mg translingual Q8H PRN (Reason: Nausea) Qty: 15 0RF Print Language: Turkish
[2024-01-22 12:07] LABS: MANUAL DIFF FLAG NO
[2024-01-22 12:10] LABS: Basophils Absolute Auto 0.1 X10*3/uL (0.0-0.2); Basophils Percent Auto 0.4 % (0-2); Eosinophils Percent Auto 0.2 % (0-4); Hematocrit 50.1 % (37.0-47.0); Hemoglobin 15.9 g/dl (12.0-16.0); Imm Gran Abs Auto 0.08 X10*3/uL (0.00-0.03); Imm Gran Pct Auto 0.4 % (0.0-0.4); Lymphocytes Absolute Auto 3.2 X10*3/uL (1.2-4.9); Lymphocytes Percent Auto 17.6 % (20-40); Mean Corpuscular HGB Conc 31.7 g/dl (31.0-35.0); Mean Corpuscular Hemoglobin 26.2 pg (27.0-33.0); Mean Corpuscular Volume 82.5 fL (80.0-98.0); Mean Platelet Volume 8.9 fL (9.4-12.3); Monocytes Absolute Auto 0.8 X10*3/uL (0.1-1.2); Monocytes Percent Auto 4.4 % (2-11); Neutrophils Absolute Auto 13.8 x10*3/uL (2.0-8.3); Platelet Count 475 X10*3/uL (160-400); Red Blood Count 6.07 X10*6/uL (4.20-5.50); Red Cell Distribution Width 16.3 % (11.0-16.0); White Blood Count 17.9 X10*3/uL (4.8-10.8)
[2024-01-22 12:14] LABS: Appearance Urine Turbid; Color Urine Yellow; Glucose Urine UA Negative (Negative); Leukocyte Esterase Urine Negative (Negative); Nitrite Urine Negative (Negative); PH >= 9.0 (5.0-9.0); Urine Blood Negative (Negative); Urine Ketones Trace mg/dL (Negative); Urine Protein Negative (Neg-Trace)
[2024-01-22] MEDS: droPERidol 5 MG/2 ML VIAL 1.25 MG IVPUSH ×3 (12:14→17:48)
[2024-01-22] MEDS: HYDROmorphone HCl 1 MG/ML SYRINGE IVPUSH ×6 (12:14→23:27)
[2024-01-22 12:19] LABS: Ammonia 33 umol/L (13-55)
[2024-01-22 12:24] LABS: Ethanol < 10 mg/dL
[2024-01-22 12:25] LABS: Lactic Acid 4.4 mmol/L (0.5-2.0)
[2024-01-22 12:27] LABS: Alanine Aminotransferase 11 U/L (0-31); Albumin Level 3.7 g/dL (3.5-5.0); Alkaline Phosphatase 167 U/L (39-117); Anion Gap 19 (12-20); Aspartate Amino Transferase 20 U/L (5-31); Bilirubin Total 0.8 mg/dL (0.0-1.0); Blood Urea Nitrogen 8 mg/dL (9-16); Calcium 9.9 mg/dL (8.4-10.2); Carbon Dioxide 21 mmol/L (22-29); Chloride 106 mmol/L (96-108); Creatinine Clr Calc Pharmacy 92.4; Estimated Glomerular Filt Rate > 60; Glucose Random 113 mg/dL (60-115); Magnesium 2.4 mg/dL (1.6-2.6); Potassium 4.2 mmol/L (3.3-5.1); Sodium 142 mmol/L (135-145); Total Protein 7.4 g/dL (6.5-8.0)
[2024-01-22 12:34] LABS: Troponin-I High Sensitivity 4.5 ng/L (<3.5-17.0)
[2024-01-22 12:35] LABS: Prothrombin Time 11.6 SEC (11.1-13.3)
[2024-01-22] MEDS: Piperacillin Sodium/Tazobactam 4.5 GM in 0.9 % Sodium Chloride 100 ML IV ×2 (12:43→21:30)
[2024-01-22 13:12] LABS: Influenza A PCR NEGATIVE (Negative); Influenza B PCR NEGATIVE (Negative); Resp Syncy Virus RNA Qual PCR NEGATIVE (Negative); SARS COV2 PCR INHOUSE NEGATIVE (Negative)
--- NOTE | 2024-01-22 13:33 | ECG_ITS ---
Test Reason : TACHY Blood Pressure : / mmHG Vent. Rate : 128 BPM Atrial Rate : 128 BPM P-R Int : 134 ms QRS Dur : 070 ms QT Int : 314 ms P-R-T Axes : 083 019 081 degrees QTc Int : 458 ms Sinus tachycardia Biatrial enlargement Pulmonary disease pattern Nonspecific ST abnormality Abnormal ECG When compared with ECG of 25-DEC-2023 19:14, Vent. rate has increased BY [address] now depressed in Lateral leads Nonspecific T wave abnormality no longer evident in Inferior leads T wave amplitude has increased in Anterior leads Referred By: Jeremiah Terrazas Electronically Signed By:ADEN MADRID MD
[2024-01-22] MEDS: vancomycin/NS 2,000 MG/500 ML PLAST..BAG 250 MG IV (13:40)
[2024-01-22] MEDS: iohexoL 350 MG/ML 100 ML INFUS..BTL IV (13:48)
[2024-01-22 14:09] LABS: Reflex Lactate? Lactic Acid Added
[2024-01-22 14:20] LABS: C Reactive Protein 10.56 mg/dL (< or = 0.50)
--- NOTE | 2024-01-22 14:30 | PC.NURSE ---
Patient BIBA from home, screaming incoherently on stretcher, sepsis protocol initiated, patient continues to yell out incoherently, family at bedside, IV fluids and abx running.
[2024-01-22 15:24] LABS: VBG Base Excess -0.2 mmol/L; VBG HCO3 23 mmol/L (22-26); VBG pCO2 37 mmHg; VBG pH 7.41 (7.32-7.43); VBG pO2 46 mmHg
[2024-01-22 15:26] LABS: Venous Blood Gas Refer to POC result
[2024-01-22 15:36] LABS: ~Lactic Acid-LAB USE ONLY 2.2 mmol/L (0.5-2.0)
[2024-01-22 15:52] LABS: Procalcitonin 0.02 ng/mL
--- NOTE | 2024-01-22 16:03 | PC.NURSE ---
IVF completed, patient continues to intermittently yell out in pain, medicated appropiately for pain, daughter continues to be at bedside, informed of current plan of care, awaiting CT results.
--- NOTE | 2024-01-22 16:09 | MHC.CM.ED ---
MICHAEL receivd a telephone call from Felipe at [facility] with a report of olyct ([phone] ext [phone]). Felipe is concerned about patient discharging to home. Per Felipe, pt had dried feces and was on the floor for days. Nurses notes supports Bed bugs and bites and patient was incontinent of urine. No feces. No report of fall or being on floor. Pt is very confused, yelling out. Work up is continuing. MICHAEL told Felipe I would make a note of his concerns in the chart. Primary RN aware of concerns. Provider aware of [facility] report.
[2024-01-22 17:17] LABS: Reflex Lactate? 2 Y
[2024-01-22] MEDS: Lactated Ringers 1,000 ML 999 ML IV (17:48)
--- NOTE | 2024-01-22 18:05 | P.HPHOSP_ITS ---
History of Present Illness Date of Service: 01/22/24 Attending physician on admission: Ralf Espinal Chief Complaint: AMS Pt is a 68-year-old female with a PMH significant for?HTN, HLD, hx of IN, hx of multiple CVAs now bed-bound due to contracture of left leg and left and right lower extremity paresis, chronic pain syndrome on chronic opioid therapy, and likely dementia who presents to the ED from home?for evaluation of altered mental status and intractable pain. Pt is alert and oriented to person only and incapable of providing an accurate HPI which instead is taken from chart and provider review and family via phone call. According to family patient was complaining of left hip and left leg pain, but was able to sleep throughout the night without complaints. When patient awoke this morning was crying out in pain, appeared altered, and could not articulate source of discomfort. Pt has been bed-bound for over 2 years and family denies any recent falls. Has hospital bed at home. When EMS arrived they reported pt was covered in feces and an unknown type of bugs. In the ED pt has been difficult to interview and examine, constantly crying out and not allowing for substantive physical exam. During interview pt unable to answer questions appropriately, often speaking nonsensically. According to family, patient is capable of making her needs known, though was not alert and oriented to time. In the ED pt was tachycardic up to 140 and hypertensive to 172/75, vitals otherwise WNL. Labs were significant for leukocytosis of 17.9, lactic acid 4.4 with repeat 2.2, alk-phos 167, and C-reactive protein 10.56. No significant electrolyte abnormalities. Renal function WNL. Tested negative for COVID, influenza, RSV. UA negative for UTI. CXR showed no evidence for acute disease in the chest. CT of abdomen and pelvis found question of distal CBD calculus with CBD dilation measuring up to 1.5 cm in diameter and with some mild central intrahepatic bile duct prominence. No evidence of bowel ileus or obstruction. Also showed 3.2 cm infrarenal AAA for which follow-up every [address]?of head showed no acute intracranial hemorrhage, mass effect, hydrocephalus, or acute territorial edematous infarction, but did show moderate chronic white matter microangiopathy and age indeterminate but likely chronic lacunar infarct in left thalamus. EKG demonstrated sinus tachycardia of 128 with bilateral enlargement, pulmonary disease pattern, and ST depressions in lateral leads. Pt was treated with hydromorphone, droperidol, IVF, Zosyn, and vancomycin. Pt will be admitted to the hospital for treatment and further evaluation of intractable pain and AMS possibly secondary to cholangitis. 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 Bedbound History of CVA (cerebrovascular accident) Coronary artery disease Hyperlipidemia Hypertension Social History Household Members: Family Household Members Other:: 6 Housing: House Do you presently have visiting nurse or other home services: Yes (w/[employer]) Unable to assess alcohol history related to: Unable to respond Comment: pt complete immobile Patient Tobacco Use Status: Former Tobacco user Quit Date: week ago Tobacco use type: Cigarette Cigarette Packs Per Day: 1 Cigarettes Per Day: 20.0 Smoked in Last 30 Days: Yes Second Hand Smoke Exposure: Yes Use of substances other than those prescribed or required for medical reasons: Unable to respond Substance Use Type: Opiates Advance Directives: No Advance Directives Information Provided: Yes service: No Meds Allergies Allergy/AdvReac Type Severity Reaction Status Date / Time No Known Allergies Allergy Verified 01/22/24 11:39 Home Medications ?Medication ?Instructions ?Recorded ?Confirmed ?Last Taken ?Type aspirin 81 mg tablet,delayed 81 mg PO DAILY 12/23/23 01/22/24 Unknown History release baclofen 20 mg tablet 20 mg PO TID 12/23/23 01/22/24 Unknown History fluticasone 250 mcg-salmeterol 50 1 ea inhalation BID 12/23/23 01/22/24 Unknown History mcg/dose blistr powdr for inhalation hydroxyzine HCl 25 mg tablet 25 mg PO Q8H PRN anxiety 12/23/23 01/22/24 Unknown History ipratropium 20 mcg-albuterol 100 1 puff inhalation QID PRN 12/23/23 01/22/24 Unknown History mcg/actuation mist for inhalation Shortness Of Breath (Combivent Respimat) oxycodone 20 mg tablet 20 mg PO TID 12/23/23 01/22/24 Unknown History Physical Exam 2 Vital Signs and Narrative: Vital Signs: Last Vital Signs Temp 97.6 F 01/22/24 17:58 Pulse 86 01/22/24 17:58 Resp 18 01/22/24 16:28 BP 154/87 H 01/22/24 17:58 Pulse Ox 98 01/22/24 17:58 O2 Del Method Room Air 01/22/24 17:58 BMI result Body Mass Index 32.2 Physical exam extremely limited as pt cries out at slightest physical touch on any part of body, and will not stay silent for auscultation. General: AOx1, unkempt, constantly crying out, often speaking nonsensically Resp: No respiratory distress GI: Diffusely tender Skin: Warm, dry. Areas or erythema on back and thighs, but no hilaria cellulitis or decubitus ulcers. As pictured below. Neuro: Moves upper extremities spontaneously, can wiggle toes bilaterally but cannot move legs Extremities: No edema Results Labs 01/22/24 11:56 01/22/24 11:56 Labs: Laboratory Results - last 24 hr 01/22/24 01/22/24 01/22/24 11:56 11:56 11:58 MCV 82.5 MCH 26.2 L MCHC 31.7 RDW 16.3 H Plt Count 475 H D MPV 8.9 L Immature Gran % (Auto) 0.4 Neut % (Auto) 77.0 H Lymph % (Auto) 17.6 L [place] % (Auto) 4.4 Eos % (Auto) 0.2 Baso % (Auto) 0.4 Lymph # (Auto) 3.2 [place] # (Auto) 0.8 Eos # (Auto) 0.0 Baso # (Auto) 0.1 Abs Immat Gran (auto) 0.08 H Absolute Neuts (auto) 13.8 H Absolute Nucleated RBC 0.000 Nucleated RBC % (auto) 0.0 PT INR VBG pH VBG pCO2 VBG pO2 VBG HCO3 VBG O2 Saturation VBG Base Excess Anion Gap 19 Estim Creat Clear Calc 92.4 Estimated GFR > 60 Random Glucose 113 Lactic Acid 4.4 H* Lactic Acid F/U @ 2Hr Calcium 9.9 D Magnesium 2.4 Total Bilirubin 0.8 AST 20 ALT 11 Alkaline Phosphatase 167 H Ammonia 33 Total Creatine Kinase Cancelled 77 Troponin I High Sens 4.5 C-Reactive Protein 10.56 H Total Protein 7.4 Albumin 3.7 Procalcitonin Urine Color Yellow Urine Appearance Turbid Urine pH >= 9.0 Ur Specific [place] 1.010 Urine Protein Negative Urine Glucose (UA) Negative Urine Ketones Trace Urine Blood Negative Urine Nitrite Negative Ur Leukocyte Esterase Negative Ethyl Alcohol < 10 Influenza Type A (PCR) Influenza Type B (PCR) RSV RNA Qual (PCR) SARS-CoV-2 RNA (RT-PCR) 01/22/24 01/22/24 01/22/24 12:10 15:11 15:19 MCV MCH MCHC RDW Plt Count MPV Immature Gran % (Auto) Neut % (Auto) Lymph % (Auto) [place] % (Auto) Eos % (Auto) Baso % (Auto) Lymph # (Auto) [place] # (Auto) Eos # (Auto) Baso # (Auto) Abs Immat Gran (auto) Absolute Neuts (auto) Absolute Nucleated RBC Nucleated RBC % (auto) PT 11.6 INR 1.0 VBG pH 7.41 VBG pCO2 37 VBG pO2 46 VBG HCO3 23 VBG O2 Saturation 73.0 VBG Base Excess -0.2 Anion Gap Estim Creat Clear Calc Estimated GFR Random Glucose Lactic Acid Lactic Acid F/U @ 2Hr 2.2 H* Calcium Magnesium Total Bilirubin AST ALT Alkaline Phosphatase Ammonia Total Creatine Kinase Troponin I High Sens C-Reactive Protein Total Protein Albumin Procalcitonin 0.02 Urine Color Urine Appearance Urine pH Ur Specific [place] Urine Protein Urine Glucose (UA) Urine Ketones Urine Blood Urine Nitrite Ur Leukocyte Esterase Ethyl Alcohol Influenza Type A (PCR) NEGATIVE Influenza Type B (PCR) NEGATIVE RSV RNA Qual (PCR) NEGATIVE SARS-CoV-2 RNA (RT-PCR) NEGATIVE Imaging Radiologist's Impressions: Impressions Chest X-Ray 01/22/24 13:10 IMPRESSION: No evidence for acute disease in the chest. Abdomen/Pelvis CT 01/22/24 13:54 IMPRESSION: Question distal common bile duct calculus with common bile duct measuring up to 1.5 cm in diameter and with some mild central intrahepatic bile duct prominence. No evidence of obstructive uropathy. Probable bladder calculi. No evidence of bowel ileus or obstruction. 3.2 cm infrarenal abdominal aortic aneurysm for which follow up every 3 years is recommended. Osteopenia with bony findings as described above. Fleischner guidelines were followed. Head CT 01/22/24 13:54 IMPRESSION: Motion degraded examination. Within this limitation: 1. No acute intracranial hemorrhage, mass effect, hydrocephalus, or acute territorial edematous infarction. 2. Moderate chronic white matter microangiopathy and age-indeterminate but favored chronic lacunar infarct in the left thalamus. Assessment and Plan (1) Diffuse pain: Status: Acute Plan Pt is a 68-year-old female with a PMH significant for?HTN, HLD, hx of IN, hx of multiple CVAs now bed-bound due to contracture of left leg and left and right lower extremity paresis, chronic pain syndrome on chronic opioid therapy, and likely dementia who presents to the ED from home?for evaluation of altered mental status and intractable pain in the setting of possible cholangitis. Question of cholangitis CT of abd/pelvis with question of distal CBD calculus with CBD dilation up to 1.5 cm in diameter Pt afebrile, alk-phos elevated at 167, but AST and ALT WNL Patient given IVF and started on broad-spectrum antibiotics in the ED Will treat with vanco and Zosyn, started 01/22/2024 Analgesics for pain management Will get ultrasound of URQ Will defer additional imaging pending GI input GI consult Follow CBC Question of sepsis No definitive source of infection has been identified But otherwise would meet SIRS criteria: tachycardia, leukocytosis, initial lactic acid 4.4 with repeats 2.2 and 1.5 Pt received IVF sepsis bolus and started on empiric broad spectrum antibiotics Will continue to empirically cover as above with vanc and Zosyn, started 01/22/2024 Acute metabolic encephalopathy Likely in the setting of above Patient also likely has some underlying dementia Treat as above Monitor mentation HTN Continue home meds if able, monitor bp closely HLD Continue statin once no longer npo Chronic pain syndrome Due to contracture LLE/bedbound status s/p multiple CVA Continue baclofen Hydromorphone as above COPD Unable to auscultate as pt continually cries out CXR negative, no hypoxic Continue home inhalers DNR/DNI, verified with family Attending:?Dr. Espinal DVT Prophylaxis: Lovenox Pt will require a hospitalization of at least two nights for treatment of?intractable pain and altered mental status in the setting of possible cholangitis. Patient required hospitalization for administration of IV analgesics, IV antibiotics, and specialist consultation with GI with possible additional imaging and/or procedures. Quality Stroke Does the patient have a stroke diagnosis?: No VTE Prior VTE?: No VTE Risk Level:: Medical - moderate - high VTE Device Contraindication: Treatment Not Indicated VTE Drug Contraindication: N/A - Med Ordered
[2024-01-22 18:15] LABS: ~Lactic Acid-LAB USE ONLY 1.5 mmol/L (0.5-2.0)
--- NOTE | 2024-01-22 18:47 | PC.NURSE ---
Attempted to give PO pain medication to patient, patient unable to tolerate sitting upright in order to swallow water or medication, screaming in pain. Patient informed that medication is for pain and will help her if she is willing/able to sit up in order to swallow, patient continued to scream in pain. Admitting provider at bedside witnessing interaction, aware unable to give PO meds at this time.
--- NOTE | 2024-01-22 19:56 | PHA.MEDREC ---
Pharmacy Consult ? Medication Reconciliation Pharmacy has completed the medication reconciliation.
[2024-01-22] MEDS: Enoxaparin Sodium 40 MG/0.4 ML SYRINGE SUBCUT (21:31)
--- NOTE | 2024-01-22 21:52 | PC.NURSE ---
Patient incontinent of large amount of urine, full bed change, patient rolled in bed 2A, minimally cooperative, continues to intermittently yell out in pain incoherently, responds minimally to reassurance and redirection.
[2024-01-22] MEDS: 0.9 % Sodium Chloride Flush 3 ML SYRINGE IVFLUSH (23:28)
[2024-01-22] MEDS: vancomycin HCL 1,250 MG in 0.9 % Sodium Chloride 250 ML 166.67 MG IV (23:28)
[2024-01-23] MEDS: LORazepam 2 MG/ML VIAL 1 MG IVPUSH (01:38)
[2024-01-23] MEDS: Piperacillin Sodium/Tazobactam 4.5 GM in 0.9 % Sodium Chloride 100 ML IV ×4 (01:41→20:45)
[2024-01-23] MEDS: HYDROmorphone HCl 1 MG/ML SYRINGE 1.5 MG IVPUSH ×4 (03:02→19:15)
[2024-01-23 04:00] VITALS: BP 164/75; PULSE 82; RESP 16; TEMP 36.3; O2SAT 100
--- NOTE | 2024-01-23 04:49 | PC.NURSE ---
Pt arrived from the ED to 372 at 2250, alert, confused ,oriented to self only, agitated, yelling in pain, soaked in urine, tried to orient pt to her environment, not comprehending, in pain even with washing her and every bit of touch to her skin, left leg contracted, right leg flaccid, c/o and screaming for left hip spasm, not due for prn Dilaudid yet, Dr. Becerra as notified, Another Dilaudid 1 mg Iv given, no much effect after, pt still restless and intermittently screaming for generalized pain, Ativan IV given, pt mostly awake and calling for Lucrecia and Shane , pt is unredirectible, pt still intermittently screaming for pain, prn Dilaudid 1.5 mg IV given.
[2024-01-23 06:10] LABS: Hematocrit 43.6 % (37.0-47.0); Mean Corpuscular HGB Conc 32.1 g/dl (31.0-35.0); Mean Corpuscular Hemoglobin 26.4 pg (27.0-33.0); Mean Corpuscular Volume 82.1 fL (80.0-98.0); Mean Platelet Volume 8.9 fL (9.4-12.3); Platelet Count 292 X10*3/uL (160-400); Red Blood Count 5.31 X10*6/uL (4.20-5.50); White Blood Count 11.1 X10*3/uL (4.8-10.8)
[2024-01-23 06:45] LABS: Alanine Aminotransferase 10 U/L (0-31); Albumin Level 3.1 g/dL (3.5-5.0); Alkaline Phosphatase 140 U/L (39-117); Anion Gap 13 (12-20); Aspartate Amino Transferase 20 U/L (5-31); Bilirubin Total 0.6 mg/dL (0.0-1.0); Blood Urea Nitrogen 5 mg/dL (9-16); Calcium 8.9 mg/dL (8.4-10.2); Carbon Dioxide 23 mmol/L (22-29); Chloride 106 mmol/L (96-108); Creatinine Clr Calc Pharmacy 92.3; Estimated Glomerular Filt Rate > 60; Glucose Random 108 mg/dL (60-115); Potassium 3.8 mmol/L (3.3-5.1); Sodium 138 mmol/L (135-145); Total Protein 6.3 g/dL (6.5-8.0)
[2024-01-23 07:08] VITALS: BP 145/70; PULSE 82; RESP 18; TEMP 36.1; O2SAT 96
[2024-01-23 07:37] LABS: Glucose, Whole Blood 97 mg/dL (60-115)
[2024-01-23] MEDS: 0.9 % Sodium Chloride Flush 3 ML SYRINGE IVFLUSH ×2 (08:25→15:02)
[2024-01-23] MEDS: Fluticasone/Vilanterol 100/25 BLST.W.DEV 1 PUFF INHALE (08:35)
[2024-01-23 08:39] VITALS: PULSE 88; RESP 16; O2SAT 98
--- NOTE | 2024-01-23 09:28 | MHC.CM.PN ---
PATIENT LIVES WITH HER SPOUSE ON FIRST FLOOR AND HER DAUGHTER/HCP/FIRE ALARM OPERATOR ALO ON THE SECOND FLOOR. PATIENT REPORTS BEING BEDBOUND I NEVER GET OUT OF BED UNLESS I NEED AN AMBULANCE . SHE REPORTS THAT DAUGHTERMATTHEW IS HCP AGENT. COPY TO BE REQUESTED WHEN SHE VISITS. PATIENT CURRENTLY UNABLE TO MOVE COMFORTABLY AND ASKS THAT T/W SIGN THE IMM, WHICH WAS EXPLAINED AND LEFT BEDSIDE FOR MATTHEW, PER PATIENT REQUEST. IMM 01/22 IN CHART CM FOLLOWING..
[2024-01-23 10:11] LABS: Vancomycin Random 19.1 mcg/mL (15-20)
--- NOTE | 2024-01-23 10:54 | P.CNGI_ITS ---
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 According to history from the chart, patient's family reported left sided leg and hip pain which worsened overnight. Patient was found in disheveled condition by the EMS. Initial workup showed tachycardia with leukocytosis and lactic acidosis. CT abdomen and pelvis showed CBD dilation 1.5 cm with question of distal CBD stone. However, apart from ALP remaining LFTs normal. Currently on bedside evaluation, patient able to give some history, and reports no abdominal pain, nausea, vomiting, fevers or chills. She reports excruciating left hip pain. 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 Bedbound History of CVA (cerebrovascular accident) Coronary artery disease Hyperlipidemia Hypertension Social History Social History Household Members: Family and Unknown / Unable to assess Household Members Other:: 6 Housing: Unknown / Unable to assess Do you presently have visiting nurse or other home services: Yes (w/[employer]) Unable to assess alcohol history related to: Unable to respond Comment: pt complete immobile Patient Tobacco Use Status: Current everyday Tobacco user Tobacco use type: Cigarette Cigarette Packs Per Day: 1 Cigarettes Per Day: 20.0 Smoked in Last 30 Days: Yes Second Hand Smoke Exposure: Yes Use of substances other than those prescribed or required for medical reasons: No Substance Use Type: Opiates Currently Displaying Signs/Symptoms of Drug Intoxication Withdrawal: No Have you been hit, kicked, punched, or otherwise hurt by someone within the past year? If so, by whom?: No Do you feel safe in your current relationship?: Yes Is there a partner from a previous relationship who is making you feel unsafe now?: No Are you made to feel afraid or neglected: No Advance Directives: No Advance Directives Information Provided: Yes Do you have thoughts of harming others: None Do you have a plan to hurt others: No Plan Recently lost weight without trying: Unsure How much weight loss: Unsure Nutrition Risks: No Nutritional Risk Patient : No : No Poor oral hygiene: No service: No Meds Allergies Allergy/AdvReac Type Severity Reaction Status Date / Time No Known Allergies Allergy Verified 01/22/24 11:39 Active Medications: Current Medications Acetaminophen (Acetaminophen 325 Mg Tablet) 650 mg PO Q6H PRN PRN Reason: Pain, Mild (Pain Scale 1-3) Albuterol/Ipratropium (Albuterol/Iprat 2.5/0.5mg 3 Ml Ampul.Neb) 3 ml INHALE QID PRN PRN Reason: Shortness Of Breath Aspirin (Aspirin Enteric Coated 81 Mg Tablet.) 81 mg PO DAILY [facility] Last Admin: 01/23/24 08:31 Dose: Not Given Baclofen (Baclofen 20 Mg Tablet) 20 mg PO TID [facility] Last Admin: 01/23/24 08:31 Dose: Not Given Benzonatate (Benzonatate 100 Mg Capsule) 100 mg PO TID PRN PRN Reason: Cough Docusate Sodium (Docusate Sodium 100 Mg Capsule) 100 mg PO DAILY PRN PRN Reason: Constipation Enoxaparin Sodium (Enoxaparin Sodium 40 Mg/0.4 Ml Syringe) 40 mg SUBCUT Q24H [facility] Last Admin: 01/22/24 21:31 Dose: 40 mg Fluticasone/Vilanterol (Fluticasone/Vilanterol 100/25 Blst.W.Dev) 1 puff INHALE RDAILY [facility] Last Admin: 01/23/24 08:35 Dose: 1 puff Hydromorphone HCl (Hydromorphone Hcl 1 Mg/Ml Syringe) 1.5 mg IVPUSH Q3H PRN; Protocol PRN Reason: Pain, Severe (Pain Scale 7-10) Last Admin: 01/23/24 06:25 Dose: 1.5 mg Hydroxyzine HCl (Hydroxyzine Hcl 25 Mg Tablet) 25 mg PO Q8H PRN PRN Reason: anxiety Piperacillin Sod/Tazobactam (Sod 4.5 gm/ Sodium Chloride) 100 mls @ 200 mls/hr IV Q6H [facility] Last Infusion: 01/23/24 09:36 Dose: Infused Vancomycin HCl 750 mg/ Sodium (Chloride) 265 mls @ 265 mls/hr IV Q12H [facility] Melatonin (Melatonin 3 Mg Tablet) 6 mg PO BEDTIME PRN PRN Reason: Insomnia Ondansetron HCl (Ondansetron Hcl 4 Mg/2 Ml Vial) 4 mg IVPUSH Q8H PRN PRN Reason: Nausea and Vomiting Pharmacy Consult (Consult Rx Vancomycin Dosing) 1 each MISCELLANE DAILY PRN PRN Reason: Consult order Sodium Chloride (0.9 % Sodium Chloride Flush 3 Ml Syringe) 3 ml IVFLUSH QSHIFT [facility] Last Admin: 01/23/24 08:25 Dose: 3 ml Home Medications ?Medication ?Instructions ?Recorded ?Confirmed ?Last Taken ?Type aspirin 81 mg tablet,delayed 81 mg PO DAILY 12/23/23 01/22/24 Unknown History release baclofen 20 mg tablet 20 mg PO TID 12/23/23 01/22/24 Unknown History fluticasone 250 mcg-salmeterol 50 1 ea inhalation BID 12/23/23 01/22/24 Unknown History mcg/dose blistr powdr for inhalation hydroxyzine HCl 25 mg tablet 25 mg PO Q8H PRN anxiety 12/23/23 01/22/24 Unknown History ipratropium 20 mcg-albuterol 100 1 puff inhalation QID PRN 12/23/23 01/22/24 Unknown History mcg/actuation mist for inhalation Shortness Of Breath (Combivent Respimat) oxycodone 20 mg tablet 20 mg PO TID 12/23/23 01/22/24 Unknown History Physical Exam 2 Vital Signs: Vital Signs: Last Vital Signs Temp 97.0 F 01/23/24 07:08 Pulse 88 01/23/24 08:39 Resp 16 01/23/24 08:39 BP 145/70 H 01/23/24 07:08 Pulse Ox 96 01/23/24 07:08 O2 Del Method Room Air 01/23/24 07:08 BMI result Body Mass Index 28.1 Appears disheveled and unkempt Nonicteric Abdomen soft, nontender, nondistended Left hip and leg warm to touch with pain out of proportion to the exam Results Labs 01/23/24 05:37 01/23/24 05:37 Labs: Short CBC 01/22/24 01/23/24 Range/Units 11:56 05:37 WBC 17.9 H 11.1 H (4.8-10.8) X10*3/uL Hgb 15.9 D 14.0 (12.0-16.0) g/dl Hct 50.1 H D 43.6 (37.0-47.0) % Plt Count 475 H D 292 D (160-400) X10*3/uL BMP 01/22/24 01/23/24 11:56 05:37 Sodium 142 138 Potassium 4.2 D 3.8 Chloride 106 106 Carbon Dioxide 21 L 23 BUN 8 L 5 L Creatinine 0.62 0.58 Calcium 9.9 D 8.9 D Cardiac Enzymes 01/22/24 01/22/24 Range/Units 11:56 11:56 Total Creatine Kinase Cancelled 77 Liver Function 01/22/24 01/23/24 Range/Units 11:56 05:37 Total Bilirubin 0.8 0.6 (0.0-1.0) mg/dL AST 20 20 (5-31) U/L ALT 11 10 (0-31) U/L Alkaline Phosphatase 167 H 140 H (39-117) U/L Albumin 3.7 3.1 L (3.5-5.0) g/dL Urine 01/22/24 Range/Units 11:58 Urine Color Yellow Urine Appearance Turbid Urine pH >= 9.0 (5.0-9.0) Ur Specific Chicken 1.010 (1.005-1.025) Urine Protein Negative (Neg-Trace) mg/dL Urine Glucose (UA) Negative (Negative) mg/dL Assessment and Plan (1) Sepsis: Status: Acute (2) Left hip pain: Status: Acute (3) Dilated cbd, acquired: Status: Acute Plan No clinical correlation of dilated CBD on assessment so far. LFTs are normal, suspect mildly elevated alk-phos may be bone related. In terms of left hip pain, consider further testing to rule out osteomyelitis, specially given high CRP of >10 on admission. Plan: -MRCP -GGT added on -okay to start clear liquids from GI standpoint today -consider workup to exclude osteomyelitis of left hip as outlined above Thank you for allowing me to participate in her care. Please do not hesitate to reach out for any questions or concerns. Procedures Date of Service Date of Service: 01/23/24
[2024-01-23 11:34] LABS: Glucose, Whole Blood 102 mg/dL (60-115)
[2024-01-23 13:06] LABS: Gamma Glutamyl Transpeptidase 49 U/L (7-33)
--- NOTE | 2024-01-23 13:29 | MHC.CM.PN ---
received a call from lauren at [facility] to ask dc plan for pt explined that pt was not being dcd this weekend
--- NOTE | 2024-01-23 14:35 | P.PNIM_ITS ---
Subjective Subjective Date of Service: 01/23/24 Interval History: oriented to self only denies abd pain no fever Review of Systems Review of Systems: Yes all other systems are reviewed and are negative Physical Exam 2 Vital Signs: Vital Signs: Last Vital Signs Temp 97.0 F 01/23/24 07:08 Pulse 88 01/23/24 08:39 Resp 16 01/23/24 08:39 BP 145/70 H 01/23/24 07:08 Pulse Ox 96 01/23/24 07:08 O2 Del Method Room Air 01/23/24 07:08 BMI result Body Mass Index 28.1 Gen: in no acute distress, unkempt, disheveled HEENT: sclera anicteric, moist mucus membranes Neck: supple Lungs: clear to auscultation bilaterally Heart: regular rate and rhythm, no murmurs Abd: soft, non-tender, non-distended Ext: no edema Skin: warm/well-perfused Neuro: alert and oriented x3, no focal findings Psych: appropriate affect Objective Data Active Medications Acetaminophen (Acetaminophen 325 Mg Tablet) 650 mg PO Q6H PRN PRN Reason: Pain, Mild (Pain Scale 1-3) Albuterol/Ipratropium (Albuterol/Iprat 2.5/0.5mg 3 Ml Ampul.Neb) 3 ml INHALE QID PRN PRN Reason: Shortness Of Breath Aspirin (Aspirin Enteric Coated 81 Mg Tablet.Dr) 81 mg PO DAILY [facility] Last Admin: 01/23/24 08:31 Dose: Not Given Documented By: SUE Non-Admin Reason: Patient Refused Baclofen (Baclofen 20 Mg Tablet) 20 mg PO TID [facility] Last Admin: 01/23/24 08:31 Dose: Not Given Documented By: SUE Non-Admin Reason: Patient Refused Benzonatate (Benzonatate 100 Mg Capsule) 100 mg PO TID PRN PRN Reason: Cough Docusate Sodium (Docusate Sodium 100 Mg Capsule) 100 mg PO DAILY PRN PRN Reason: Constipation Enoxaparin Sodium (Enoxaparin Sodium 40 Mg/0.4 Ml Syringe) 40 mg SUBCUT Q24H [facility] Last Admin: 01/22/24 21:31 Dose: 40 mg Documented By: GOLDY Fluticasone/Vilanterol (Fluticasone/Vilanterol 100/25 Blst.W.Dev) 1 puff INHALE RDAILY [facility] Last Admin: 01/23/24 08:35 Dose: 1 puff Documented By: PARAS Hydromorphone HCl (Hydromorphone Hcl 1 Mg/Ml Syringe) 1.5 mg IVPUSH Q3H PRN; Protocol PRN Reason: Pain, Severe (Pain Scale 7-10) Last Admin: 01/23/24 11:48 Dose: 1.5 mg Documented By: SUE Hydroxyzine HCl (Hydroxyzine Hcl 25 Mg Tablet) 25 mg PO Q8H PRN PRN Reason: anxiety Piperacillin Sod/Tazobactam (Sod 4.5 gm/ Sodium Chloride) 100 mls @ 200 mls/hr IV Q6H [facility] Last Infusion: 01/23/24 09:36 Dose: Infused Documented By: SUE Vancomycin HCl 750 mg/ Sodium (Chloride) 265 mls @ 265 mls/hr IV Q12H [facility] Melatonin (Melatonin 3 Mg Tablet) 6 mg PO BEDTIME PRN PRN Reason: Insomnia Ondansetron HCl (Ondansetron Hcl 4 Mg/2 Ml Vial) 4 mg IVPUSH Q8H PRN PRN Reason: Nausea and Vomiting Pharmacy Consult (Consult Rx Vancomycin Dosing) 1 each MISCELLANE DAILY PRN PRN Reason: Consult order Sodium Chloride (0.9 % Sodium Chloride Flush 3 Ml Syringe) 3 ml IVFLUSH QSHIFT [facility] Last Admin: 01/23/24 08:25 Dose: 3 ml Documented By: SUE Labs 01/23/24 05:37 01/23/24 05:37 Labs: Laboratory Results - last 24 hr 01/22/24 01/22/24 01/22/24 15:11 15:19 17:57 MCV MCH MCHC RDW Plt Count MPV Absolute Nucleated RBC Nucleated RBC % (auto) VBG pH 7.41 VBG pCO2 37 VBG pO2 46 VBG HCO3 23 VBG O2 Saturation 73.0 VBG Base Excess -0.2 Anion Gap Estim Creat Clear Calc Estimated GFR POC Glucose Random Glucose Lactic Acid F/U @ 2Hr 2.2 H* Lactic Acid F/U @ 4Hr 1.5 Calcium Total Bilirubin GGT AST ALT Alkaline Phosphatase Total Protein Albumin Procalcitonin 0.02 Random Vancomycin 01/23/24 01/23/2401/22/24 05:37 07:30 09:22 MCV 82.1 MCH 26.4 L MCHC 32.1 RDW 16.0 Plt Count 292 D MPV 8.9 L Absolute Nucleated RBC 0.000 Nucleated RBC % (auto) 0.0 VBG pH VBG pCO2 VBG pO2 VBG HCO3 VBG O2 Saturation VBG Base Excess Anion Gap 13 Estim Creat Clear Calc 92.3 Estimated GFR > 60 POC Glucose 97 Random Glucose 108 Lactic Acid F/U @ 2Hr Lactic Acid F/U @ 4Hr Calcium 8.9 D Total Bilirubin 0.6 GGT 49 H AST 20 ALT 10 Alkaline Phosphatase 140 H Total Protein 6.3 L Albumin 3.1 L Procalcitonin Random Vancomycin 19.1 01/23/24 11:24 MCV MCH MCHC RDW Plt Count MPV Absolute Nucleated RBC Nucleated RBC % (auto) VBG pH VBG pCO2 VBG pO2 VBG HCO3 VBG O2 Saturation VBG Base Excess Anion Gap Estim Creat Clear Calc Estimated GFR POC Glucose 102 Random Glucose Lactic Acid F/U @ 2Hr Lactic Acid F/U @ 4Hr Calcium Total Bilirubin GGT AST ALT Alkaline Phosphatase Total Protein Albumin Procalcitonin Random Vancomycin Microbiology Microbiology Results: Microbiology 01/22/24 12:10 Blood Culture - Preliminary Blood - Venous No growth after 24 hours. 01/22/24 11:56 Blood Culture - Preliminary Blood - Venous No growth after 24 hours. Assessment and Plan (1) Dilated cbd, acquired: Status: Acute Assessment and Plan: d2 68yo F wtih hx MO, hx CVA; now bed-bound due to LLE contracture; paraparesis; chronic pain syndrome; ?dementia admitted for AMS, SIRS with question of cholangitis sepsis possible cholangitis - CBD dilated, alk phos slightly high but could be from bone; rest of LFTs normal. US pending. GI consulted; MRCP ordered. Monitor LFTs. Follow BCx. CRP high, PCT low. Leukocytosis resolved. - on vanc + pip-anabella 4/5- acute encephalopathy likely due to infection - treat infection as above hx MO hx CVA - ASA chronic pain - baclofen, prn hydromorphone COPD not in acute exac - continue home inhalers concern for elder neglect - CM consultation VTE ppx - LMWH dispo - will likely need SNF In my clinical judgment, the patient requires continued inpatient hospitalization for the following reasons: IV ABX Total time managing care of this patient today: 45 minutes. Quality Stroke Does the patient have a stroke diagnosis?: No VTE Prior VTE?: No VTE Risk Level:: Medical - moderate - high VTE Device Contraindication: Treatment Not Indicated VTE Drug Contraindication: N/A - Med Ordered
[2024-01-23 15:00] VITALS: BP 142/80; PULSE 87; RESP 18; TEMP 36.1; O2SAT 94
[2024-01-23 19:15] VITALS: RESP 20
[2024-01-23] MEDS: vancomycin HCL 750 MG in 0.9 % Sodium Chloride 250 ML 265 MG IV (19:17)
[2024-01-23] MEDS: Enoxaparin Sodium 40 MG/0.4 ML SYRINGE SUBCUT (19:18)
[2024-01-23] MEDS: ondansetron HCL 4 MG/2 ML VIAL IVPUSH (19:48)
[2024-01-23 19:53] VITALS: BP 144/80; PULSE 98; RESP 18; TEMP 36.2; O2SAT 97
[2024-01-24] MEDS: 0.9 % Sodium Chloride Flush 3 ML SYRINGE IVFLUSH ×3 (00:56→15:17)
[2024-01-24] MEDS: Piperacillin Sodium/Tazobactam 4.5 GM in 0.9 % Sodium Chloride 100 ML IV ×4 (02:43→19:29)
[2024-01-24 03:35] VITALS: BP 150/88; PULSE 106; RESP 18; TEMP 36.6; O2SAT 98
[2024-01-24 07:10] LABS: Hematocrit 45.6 % (37.0-47.0); Hemoglobin 14.7 g/dl (12.0-16.0); Mean Corpuscular HGB Conc 32.2 g/dl (31.0-35.0); Mean Corpuscular Hemoglobin 26.5 pg (27.0-33.0); Mean Corpuscular Volume 82.2 fL (80.0-98.0); Mean Platelet Volume 8.9 fL (9.4-12.3); Platelet Count 325 X10*3/uL (160-400); Red Blood Count 5.55 X10*6/uL (4.20-5.50); White Blood Count 13.2 X10*3/uL (4.8-10.8)
[2024-01-24 07:55] VITALS: BP 153/81; PULSE 101; RESP 16; TEMP 36.4; O2SAT 98
[2024-01-24] MEDS: Aspirin Enteric Coated 81 MG TABLET.DR PO (08:20)
[2024-01-24] MEDS: Baclofen 20 MG TABLET PO ×3 (08:20→19:29)
--- NOTE | 2024-01-24 11:35 | HO.PM.IMPN ---
Subjective Subjective Date of Service: 01/24/24 Interval History: much more awake/alert denies any abd pain/N/V Review of Systems Review of Systems: Yes all other systems are reviewed and are negative Physical Exam Vital Signs: Vital Signs: Last Vital Signs Temp 97.6 F 01/24/24 07:55 Pulse 101 H 01/24/24 07:55 Resp 16 01/24/24 07:55 BP 153/81 H 01/24/24 07:55 Pulse Ox 98 01/24/24 07:55 O2 Del Method Room Air 01/24/24 07:55 BMI result Body Mass Index 28.1 Gen: in no acute distress HEENT: sclera anicteric, moist mucus membranes Neck: supple Lungs: clear to auscultation bilaterally Heart: regular rate and rhythm, no murmurs Abd: soft, non-tender, non-distended Ext: no edema Skin: warm/well-perfused Neuro: alert and oriented x3, RLE + LLE weakness; bedbound; LLE contracted Psych: appropriate affect Objective Data Active Medications Acetaminophen (Acetaminophen 325 Mg Tablet) 650 mg PO Q6H PRN PRN Reason: Pain, Mild (Pain Scale 1-3) Albuterol/Ipratropium (Albuterol/Iprat 2.5/0.5mg 3 Ml Ampul.Neb) 3 ml INHALE QID PRN PRN Reason: Shortness Of Breath Aspirin (Aspirin Enteric Coated 81 Mg Tablet.) 81 mg PO DAILY [facility] Last Admin: 01/24/24 08:20 Dose: 81 mg Documented By: SUE Baclofen (Baclofen 20 Mg Tablet) 20 mg PO TID [facility] Last Admin: 01/24/24 08:20 Dose: 20 mg Documented By: SUE Benzonatate (Benzonatate 100 Mg Capsule) 100 mg PO TID PRN PRN Reason: Cough Docusate Sodium (Docusate Sodium 100 Mg Capsule) 100 mg PO DAILY PRN PRN Reason: Constipation Enoxaparin Sodium (Enoxaparin Sodium 40 Mg/0.4 Ml Syringe) 40 mg SUBCUT Q24H [facility] Last Admin: 01/23/24 19:18 Dose: 40 mg Documented By: MARY Fluticasone/Vilanterol (Fluticasone/Vilanterol 100/25 Blst.W.Dev) 1 puff INHALE RDAILY [facility] Last Admin: 01/24/24 08:38 Dose: Not Given Documented By: ROSANNA Non-Admin Reason: pt refused Hydromorphone HCl (Hydromorphone Hcl 1 Mg/Ml Syringe) 1.5 mg IVPUSH Q3H PRN; Protocol PRN Reason: Pain, Severe (Pain Scale 7-10) Last Admin: 01/23/24 19:15 Dose: 1.5 mg Documented By: MARY Hydroxyzine HCl (Hydroxyzine Hcl 25 Mg Tablet) 25 mg PO Q8H PRN PRN Reason: anxiety Piperacillin Sod/Tazobactam (Sod 4.5 gm/ Sodium Chloride) 100 mls @ 200 mls/hr IV Q6H [facility] Last Infusion: 01/24/24 09:00 Dose: Infused Documented By: SUE Vancomycin HCl 750 mg/ Sodium (Chloride) 265 mls @ 265 mls/hr IV Q12H [facility] Last Infusion: 01/23/24 20:41 Dose: Infused Documented By: MARY Melatonin (Melatonin 3 Mg Tablet) 6 mg PO BEDTIME PRN PRN Reason: Insomnia Ondansetron HCl (Ondansetron Hcl 4 Mg/2 Ml Vial) 4 mg IVPUSH Q8H PRN PRN Reason: Nausea and Vomiting Last Admin: 01/23/24 19:48 Dose: 4 mg Documented By: MARY Pharmacy Consult (Consult Rx Vancomycin Dosing) 1 each MISCELLANE DAILY PRN PRN Reason: Consult order Sodium Chloride (0.9 % Sodium Chloride Flush 3 Ml Syringe) 3 ml IVFLUSH QSHIFT [facility] Last Admin: 01/24/24 08:11 Dose: 3 ml Documented By: SUE Labs 01/24/24 05:56 01/23/24 05:37 Labs: Laboratory Results - last 24 hr 01/23/24 01/24/24 05:37 05:56 MCV 82.2 MCH 26.5 L MCHC 32.2 RDW 16.0 Plt Count 325 MPV 8.9 L Absolute Nucleated RBC 0.000 Nucleated RBC % (auto) 0.0 GGT 49 H Impressions Abdomen Ultrasound 01/23/24 08:01 IMPRESSION: Common duct dilation to 1.2 cm suggesting obstruction however the duct cannot be visualized more distally. MRCP or ERCP could be considered. Microbiology Microbiology Results: Microbiology 01/22/24 12:10 Blood Culture - Preliminary Blood - Venous No growth after 24 hours. 01/22/24 11:56 Blood Culture - Preliminary Blood - Venous No growth after 24 hours. Assessment and Plan (1) Dilated cbd, acquired: Status: Acute Assessment and Plan: d3 68yo F wtih hx MS, hx CVA; now bed-bound due to LLE contracture; paraparesis; chronic pain syndrome; ?dementia admitted for AMS, SIRS with question of cholangitis sepsis possible cholangitis - CBD dilated to 12mm. GI consulted; MRCP ordered. Monitor LFTs. Follow BCx- no growth yet. CRP high, PCT low. Leukocytosis resolved. - on vanc + pip-anabella 4/5- acute encephalopathy likely due to infection - resolved hx MS hx CVA - ASA chronic pain - baclofen, prn hydromorphone COPD not in acute exac - continue home inhalers concern for elder neglect - CM consultation VTE ppx - LMWH dispo - will likely need SNF In my clinical judgment, the patient requires continued inpatient hospitalization for the following reasons: IV ABX Total time managing care of this patient today: 35 minutes. Quality Stroke Does the patient have a stroke diagnosis?: No VTE Prior VTE?: No VTE Risk Level:: Medical - moderate - high VTE Device Contraindication: Treatment Not Indicated VTE Drug Contraindication: N/A - Med Ordered
[2024-01-24 11:54] LABS: Alanine Aminotransferase 11 U/L (0-31); Albumin Level 3.2 g/dL (3.5-5.0); Alkaline Phosphatase 141 U/L (39-117); Anion Gap 16 (12-20); Aspartate Amino Transferase 21 U/L (5-31); Bilirubin Total 0.6 mg/dL (0.0-1.0); Blood Urea Nitrogen 4 mg/dL (9-16); C Reactive Protein 6.41 mg/dL (< or = 0.50); Calcium 9.2 mg/dL (8.4-10.2); Carbon Dioxide 21 mmol/L (22-29); Chloride 107 mmol/L (96-108); Creatinine Clr Calc Pharmacy 92.3; Estimated Glomerular Filt Rate > 60; Glucose Random 76 mg/dL (60-115); Magnesium 2.1 mg/dL (1.6-2.6); Sodium 140 mmol/L (135-145); Total Protein 6.3 g/dL (6.5-8.0)
--- NOTE | 2024-01-24 13:14 | HE.PHANOTE ---
Vancomycin Dosing Addendum Patient received 2000 mg x 1, then a 1250 mg dose and had a random level of 19.1. Decreased dose to 750 mg q12 hours and was to get next vancomycin random level on 01/24/24 @0500. Lab down and unable to get random vancomycin level but scr stable. Increasing dose to 1000 mg q12h with next level 01/25/24 @1200
[2024-01-24] MEDS: vancomycin HCL 1,000 MG in 0.9 % Sodium Chloride 250 ML 270 MG IV (15:13)
[2024-01-24 15:27] VITALS: BP 147/83; PULSE 100; RESP 16; TEMP 36.4; O2SAT 95
[2024-01-24 18:27] VITALS: RESP 18
[2024-01-24] MEDS: HYDROmorphone HCl 1 MG/ML SYRINGE 1.5 MG IVPUSH (18:27)
[2024-01-24] MEDS: Enoxaparin Sodium 40 MG/0.4 ML SYRINGE SUBCUT (19:28)
[2024-01-24 19:48] VITALS: BP 129/80; PULSE 95; RESP 18; TEMP 36.2; O2SAT 98
[2024-01-25] MEDS: HYDROmorphone HCl 1 MG/ML SYRINGE 1.5 MG IVPUSH ×2 (00:48→13:42)
[2024-01-25] MEDS: Piperacillin Sodium/Tazobactam 4.5 GM in 0.9 % Sodium Chloride 100 ML IV ×4 (00:53→20:42)
[2024-01-25] MEDS: vancomycin HCL 1,000 MG in 0.9 % Sodium Chloride 250 ML 257 MG IV (00:53)
[2024-01-25] MEDS: 0.9 % Sodium Chloride Flush 3 ML SYRINGE IVFLUSH ×4 (01:05→20:34)
[2024-01-25 03:45] VITALS: BP 159/84; PULSE 87; RESP 16; TEMP 36.2; O2SAT 100
[2024-01-25 07:14] VITALS: BP 198/96; PULSE 83; RESP 14; O2SAT 99
[2024-01-25 07:53] LABS: Alanine Aminotransferase 12 U/L (0-31); Albumin Level 3.3 g/dL (3.5-5.0); Alkaline Phosphatase 142 U/L (39-117); Anion Gap 13 (12-20); Aspartate Amino Transferase 19 U/L (5-31); Bilirubin Total 0.5 mg/dL (0.0-1.0); Blood Urea Nitrogen 5 mg/dL (9-16); Calcium 8.8 mg/dL (8.4-10.2); Carbon Dioxide 25 mmol/L (22-29); Chloride 108 mmol/L (96-108); Creatinine Clr Calc Pharmacy 87.8; Estimated Glomerular Filt Rate > 60; Glucose Random 84 mg/dL (60-115); Potassium 3.3 mmol/L (3.3-5.1); Sodium 143 mmol/L (135-145); Total Protein 6.2 g/dL (6.5-8.0)
[2024-01-25] MEDS: Fluticasone/Vilanterol 100/25 BLST.W.DEV 1 PUFF INHALE (08:18)
[2024-01-25 08:20] VITALS: PULSE 83; RESP 20; O2SAT 97
[2024-01-25] MEDS: Baclofen 20 MG TABLET PO ×3 (08:47→20:32)
[2024-01-25] MEDS: Aspirin Enteric Coated 81 MG TABLET.DR PO (08:47)
[2024-01-25] MEDS: amLODIPine Besylate 5 MG TABLET PO (08:47)
--- NOTE | 2024-01-25 09:18 | PC.NURSE ---
MRI screening form completed with assistance from patients daughter.
--- NOTE | 2024-01-25 10:27 | P.PNIM_ITS ---
Subjective Subjective Date of Service: 01/25/24 Interval History: denies abd pain/N/V unable to lay flat for MRCP Review of Systems Review of Systems: Yes all other systems are reviewed and are negative Physical Exam 2 Vital Signs: Vital Signs: Last Vital Signs Temp 97.1 F 01/25/24 03:45 Pulse 83 01/25/24 08:20 Resp 20 01/25/24 08:20 BP 198/96 H 01/25/24 07:14 Pulse Ox 99 01/25/24 07:14 O2 Del Method Room Air 01/25/24 07:14 BMI result Body Mass Index 28.1 Gen: in no acute distress HEENT: sclera anicteric, moist mucus membranes Neck: supple Lungs: clear to auscultation bilaterally Heart: regular rate and rhythm, no murmurs Abd: soft, non-tender, non-distended Ext: no edema Skin: warm/well-perfused Neuro: alert and oriented x3, RLE + LLE weakness; bedbound; LLE contracted Psych: appropriate affect Objective Data Active Medications Acetaminophen (Acetaminophen 325 Mg Tablet) 650 mg PO Q6H PRN PRN Reason: Pain, Mild (Pain Scale 1-3) Albuterol/Ipratropium (Albuterol/Iprat 2.5/0.5mg 3 Ml Ampul.Neb) 3 ml INHALE QID PRN PRN Reason: Shortness Of Breath Amlodipine Besylate (Amlodipine Besylate 5 Mg Tablet) 5 mg PO DAILY [facility]; Protocol Last Admin: 01/25/24 08:47 Dose: 5 mg Documented By: KATHIE Aspirin (Aspirin Enteric Coated 81 Mg Tablet.) 81 mg PO DAILY [facility] Last Admin: 01/25/24 08:47 Dose: 81 mg Documented By: KATHIE Baclofen (Baclofen 20 Mg Tablet) 20 mg PO TID [facility] Last Admin: 01/25/24 08:47 Dose: 20 mg Documented By: KATHIE Benzonatate (Benzonatate 100 Mg Capsule) 100 mg PO TID PRN PRN Reason: Cough Docusate Sodium (Docusate Sodium 100 Mg Capsule) 100 mg PO DAILY PRN PRN Reason: Constipation Enoxaparin Sodium (Enoxaparin Sodium 40 Mg/0.4 Ml Syringe) 40 mg SUBCUT Q24H [facility] Last Admin: 01/24/24 19:28 Dose: 40 mg Documented By: BRINA Fluticasone/Vilanterol (Fluticasone/Vilanterol 100/25 Blst.W.Dev) 1 puff INHALE RDAILY [facility] Last Admin: 01/25/24 08:18 Dose: 1 puff Documented By: BRESLETI Hydromorphone HCl (Hydromorphone Hcl 1 Mg/Ml Syringe) 1.5 mg IVPUSH Q3H PRN; Protocol PRN Reason: Pain, Severe (Pain Scale 7-10) Last Admin: 01/25/24 00:48 Dose: 1.5 mg Documented By: SAAD Hydroxyzine HCl (Hydroxyzine Hcl 25 Mg Tablet) 25 mg PO Q8H PRN PRN Reason: anxiety Piperacillin Sod/Tazobactam (Sod 4.5 gm/ Sodium Chloride) 100 mls @ 200 mls/hr IV Q6H [facility] Last Infusion: 01/25/24 09:23 Dose: Infused Documented By: KATHIE Vancomycin HCl 1,000 mg/ (Sodium Chloride) 270 mls @ 270 mls/hr IV Q12H [facility] Last Infusion: 01/25/24 02:00 Dose: Infused Documented By: SAAD Melatonin (Melatonin 3 Mg Tablet) 6 mg PO BEDTIME PRN PRN Reason: Insomnia Ondansetron HCl (Ondansetron Hcl 4 Mg/2 Ml Vial) 4 mg IVPUSH Q8H PRN PRN Reason: Nausea and Vomiting Last Admin: 01/23/24 19:48 Dose: 4 mg Documented By: MARY Pharmacy Consult (Consult Rx Vancomycin Dosing) 1 each MISCELLANE DAILY PRN PRN Reason: Consult order Sodium Chloride (0.9 % Sodium Chloride Flush 3 Ml Syringe) 3 ml IVFLUSH QSHIFT [facility] Last Admin: 01/25/24 08:50 Dose: 3 ml Documented By: KATHIE Labs 01/24/24 05:56 01/25/24 07:30 Labs: Laboratory Results - last 24 hr 01/24/24 01/25/24 05:56 07:30 Anion Gap 16 13 Estim Creat Clear Calc 92.3 87.8 Estimated GFR > 60 > 60 Random Glucose 76 84 Calcium 9.2 8.8 Magnesium 2.1 Total Bilirubin 0.6 0.5 AST 21 19 ALT 11 12 Alkaline Phosphatase 141 H 142 H C-Reactive Protein 6.41 H Total Protein 6.3 L 6.2 L Albumin 3.2 L 3.3 L Random Vancomycin 12.0 L Microbiology Microbiology Results: Microbiology 01/22/24 12:10 Blood Culture - Preliminary Blood - Venous No growth after 48 hours. 01/22/24 11:56 Blood Culture - Preliminary Blood - Venous No growth after 48 hours. Assessment and Plan (1) Dilated cbd, acquired: Status: Acute Assessment and Plan: d3 68yo F with hx AR, hx CVA; now bed-bound due to LLE contracture; paraparesis; chronic pain syndrome; ?dementia admitted for AMS, SIRS with question of cholangitis versus other source sepsis possible cholangitis versus other source of infection - CBD dilated to 12mm but per GI likely chronically so due to opiates; LFTs essentially normal. Unable to lay flat for MRCP. BCx negative. CRP coming down. - vanc 4/5-01/24, piperacillin-tazobactam 4/5-. BCx negative. Consult Infectious Disease. GI consulted; MRCP ordered. Monitor LFTs. Follow BCx- no growth yet. CRP high, PCT low. Leukocytosis resolved. - on vanc + pip-anabella 4/5- acute encephalopathy likely due to infection - resolved hx AR hx CVA - ASA chronic pain - baclofen, prn hydromorphone COPD not in acute exac - continue home inhalers concern for elder neglect - CM following VTE ppx - LMWH dispo - will likely need SNF In my clinical judgment, the patient requires continued inpatient hospitalization for the following reasons: IV ABX, ?source of sepsis Total time managing care of this patient today: 45 minutes. Quality Stroke Does the patient have a stroke diagnosis?: No VTE Prior VTE?: No VTE Risk Level:: Medical - moderate - high VTE Device Contraindication: Treatment Not Indicated VTE Drug Contraindication: N/A - Med Ordered
--- NOTE | 2024-01-25 12:25 | MHC.CM.PN ---
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 PER MD ROUNDS PATIENT IS NOT MEDICALLY CLEARED FOR DC AT THIS TIME. PER MD PATIENT STILL EXPERIENCING CONFUSION. CM OBTAINED HCP FROM [facility] - NETO ODOM IS AGENT. CM SPOKE WITH WHO REPORTS PATIENT IS BEDBOUND. HAS A HOSPITAL BED IN THE HOME. DAUGHTER'S MATTHEW AND LONNY ARE 24/7 CAREGIVERS. PER NETO, GOAL IS HOME RESUME 24/7 CARE. WILL NEED BLS.
--- NOTE | 2024-01-25 13:16 | P.CDIM_ITS ---
PROVIDER RESPONSE TEXT: To clarify, the appropriate diagnosis supported by the clinical indicators: Sepsis: suspected QUERY TEXT: PHYSICIAN'S DOCUMENTATION REQUEST Date of Query: 01/25/2024 09:48 AM EDT Patient Name: Arielle Avila Admit Date: 01/22/2024 Dear Luna Lilly, A review of the medical record indicates additional documentation may be needed. Please review below and update the documentation accordingly. SIRS/Sepsis is documented within the medical record: Consistency/clarity of a noted diagnosis: Clinical indicators: H&P: Plan-Question of Sepsis No definitive source of infection has been identified. But otherwise would meet SIRS criteria: Tachycardia, leukocytosis, initial lactic acid 4.4 IVF Sepsis bolus and started empiric broad spectrum antibiotics. Progress note: 01/22 - Plan- Admitted for AMS, SIRS with question of cholangitis. Progress note: 01/23 - Plan - Admitted for AMS, SIRS Sepsis, possible cholangitis. HR 4.4 WBC 17.9 HR 140 Temp 99.0 Consistency/clarity: Sepsis suspected, resolved, possible, probable, ruled out etc. SIRS due to a non-infectious source or other Other (explain) Clinically unable to determine (explain) Thank you, Nirali Angel, CCS, CDIS Use of terms such as suspected, likely, concern for, or probable (associated with a specific diagnosi s that is being evaluated, monitored, or treated as if it exists) are acceptable and can be coded in the inpatient se tting, when documented at the time of discharge. Please use your independent medical judgment in providing your response. THIS QUERY IS PART OF THE PERMANENT MEDICAL RECORD
--- NOTE | 2024-01-25 14:25 | HO.WOUND ---
Wound Consult: Initial 68yr old? [place] [facility] [place] - See progress notes and H&P for detailed history.? Wound consult placed for buttocks, back, thighs and right Hip .? Patient agreeable to assessment and photo documentation.? Back is reddened but remains blanchable and intact throughout - no intervention needed at this time. Buttock and posterior thighs are noted for red blanchable erythema and dry tissue. There are no open areas and no pressure injuries noted. Patient baseline incontinence recommend barrier cream to protect from moisture and friction. There is evidence of old injury to the left buttock - suspect full thickness injury resurfaced due to scar tissue formation and hypopigmentation. The areas remain blanchable and with a slight maroon pigmentation but again remains blanchable and does not appear pressure related at this time. Right Hip assessed for irregular tissue healing - assessed and no open tissue noted - no topical interventions needed at this time. Recommendations: 1. Turn and Reposition every 2 hours and as needed for patient comfort.? Use pillows or wedges to support off loading positions. 2. Off Load all bony prominences with use of pillows and heel boots if needed.? Apply Preventative foams where needed. ? 3. Monitor for incontinence and moisture control, use barrier creams when needed for prevention and treatment. 4. Provide adequate and supplemental nutrition.? 5. Continue low air loss mattress. 6. Buttock, perineal and posterior thighs - Off Load Pressure - Cleanse with PH balance spray or wipes, pat dry. ?Apply thin layer of Triad to wound bed - only pat and dab no scrub and rub when soiling occurs. Reapply thin layer PRN after each episode of incontinence. Re-consult wound care Nurse for wound deterioration or wound changes.
[2024-01-25 14:31] VITALS: BP 135/65
--- NOTE | 2024-01-25 14:49 | PC.NURSE ---
Yanet put in order for alexander catheter to be placed prior to pt going to nuclear med bone scan in order to keep bladder empty and keep area from being contaminated, as the urine will be radioactive. Half life of radiation is approximately 6 hours per nuclear medicine.
[2024-01-25 19:26] VITALS: BP 166/83; PULSE 88; RESP 18; TEMP 36.7; O2SAT 98
[2024-01-25] MEDS: Enoxaparin Sodium 40 MG/0.4 ML SYRINGE SUBCUT (20:32)
[2024-01-26 02:48] VITALS: BP 158/91; PULSE 93; RESP 17; TEMP 36.8; O2SAT 94
[2024-01-26] MEDS: Piperacillin Sodium/Tazobactam 4.5 GM in 0.9 % Sodium Chloride 100 ML IV ×4 (03:00→21:04)
[2024-01-26 06:10] LABS: Hematocrit 45.5 % (37.0-47.0); Hemoglobin 14.6 g/dl (12.0-16.0); Mean Corpuscular HGB Conc 32.1 g/dl (31.0-35.0); Mean Corpuscular Hemoglobin 26.4 pg (27.0-33.0); Mean Corpuscular Volume 82.3 fL (80.0-98.0); Mean Platelet Volume 8.6 fL (9.4-12.3); Platelet Count 304 X10*3/uL (160-400); Red Blood Count 5.53 X10*6/uL (4.20-5.50); Red Cell Distribution Width 16.1 % (11.0-16.0); White Blood Count 9.7 X10*3/uL (4.8-10.8)
[2024-01-26 06:19] LABS: Alanine Aminotransferase 13 U/L (0-31); Albumin Level 3.3 g/dL (3.5-5.0); Alkaline Phosphatase 158 U/L (39-117); Anion Gap 15 (12-20); Aspartate Amino Transferase 24 U/L (5-31); Bilirubin Total 0.6 mg/dL (0.0-1.0); Blood Urea Nitrogen 6 mg/dL (9-16); C Reactive Protein 2.78 mg/dL (< or = 0.50); Calcium 9.1 mg/dL (8.4-10.2); Carbon Dioxide 23 mmol/L (22-29); Chloride 110 mmol/L (96-108); Creatinine Clr Calc Pharmacy 101.1; Estimated Glomerular Filt Rate > 60; Glucose Random 98 mg/dL (60-115); Potassium 3.2 mmol/L (3.3-5.1); Sodium 145 mmol/L (135-145); Total Protein 6.3 g/dL (6.5-8.0)
[2024-01-26 06:54] LABS: Erythrocyte Sedimentation Rate 23 MM/HR (0-20)
[2024-01-26 07:44] VITALS: BP 168/82; PULSE 92; RESP 16; TEMP 36.3; O2SAT 98
[2024-01-26] MEDS: Baclofen 20 MG TABLET PO ×3 (08:43→21:04)
[2024-01-26] MEDS: amLODIPine Besylate 5 MG TABLET PO (08:43)
[2024-01-26] MEDS: Aspirin Enteric Coated 81 MG TABLET.DR PO (08:43)
[2024-01-26] MEDS: Lactated Ringers 1,000 ML 100 ML IVCONT ×2 (08:48→21:47)
[2024-01-26] MEDS: 0.9 % Sodium Chloride Flush 3 ML SYRINGE IVFLUSH ×2 (08:48→21:46)
[2024-01-26] MEDS: Potassium Chloride/H20 10 MEQ/100 ML PIGGYBACK 100 MEQ IV ×2 (09:16→11:12)
[2024-01-26] MEDS: HYDROmorphone HCl 1 MG/ML SYRINGE 1.5 MG IVPUSH ×2 (09:34→16:30)
--- NOTE | 2024-01-26 13:31 | HO.PM.IMPN ---
Subjective Subjective Date of Service: 01/26/24 Interval History: no complaints of abd pain NM bone scan neg for osteomyelitis Review of Systems Review of Systems: Yes all other systems are reviewed and are negative Physical Exam Vital Signs: Vital Signs: Last Vital Signs Temp 97.4 F 01/26/24 07:44 Pulse 92 01/26/24 07:44 Resp 16 01/26/24 07:44 BP 168/82 H 01/26/24 07:44 Pulse Ox 98 01/26/24 07:44 O2 Del Method Room Air 01/26/24 07:44 BMI result Body Mass Index 28.1 Gen: in no acute distress HEENT: sclera anicteric, moist mucus membranes Neck: supple Lungs: clear to auscultation bilaterally Heart: regular rate and rhythm, no murmurs Abd: soft, non-tender, non-distended Ext: no edema Skin: warm/well-perfused Neuro: alert and oriented x3, RLE + LLE weakness; bedbound; LLE contracted Psych: appropriate affect Objective Data Active Medications Acetaminophen (Acetaminophen 325 Mg Tablet) 650 mg PO Q6H PRN PRN Reason: Pain, Mild (Pain Scale 1-3) Albuterol/Ipratropium (Albuterol/Iprat 2.5/0.5mg 3 Ml Ampul.Neb) 3 ml INHALE QID PRN PRN Reason: Shortness Of Breath Amlodipine Besylate (Amlodipine Besylate 5 Mg Tablet) 5 mg PO DAILY [facility]; Protocol Last Admin: 01/26/24 08:43 Dose: 5 mg Documented By: KATHIE Aspirin (Aspirin Enteric Coated 81 Mg Tablet.) 81 mg PO DAILY [facility] Last Admin: 01/26/24 08:43 Dose: 81 mg Documented By: KATHIE Baclofen (Baclofen 20 Mg Tablet) 20 mg PO TID [facility] Last Admin: 01/26/24 08:43 Dose: 20 mg Documented By: KATHIE Benzonatate (Benzonatate 100 Mg Capsule) 100 mg PO TID PRN PRN Reason: Cough Docusate Sodium (Docusate Sodium 100 Mg Capsule) 100 mg PO DAILY PRN PRN Reason: Constipation Enoxaparin Sodium (Enoxaparin Sodium 40 Mg/0.4 Ml Syringe) 40 mg SUBCUT Q24H [facility] Last Admin: 01/25/24 20:32 Dose: 40 mg Documented By: JOSE Fluticasone/Vilanterol (Fluticasone/Vilanterol 100/25 Blst.W.Dev) 1 puff INHALE RDAILY [facility] Last Admin: 01/26/24 07:57 Dose: Not Given Documented By: JAMES Non-Admin Reason: Patient Refused Hydromorphone HCl (Hydromorphone Hcl 1 Mg/Ml Syringe) 1.5 mg IVPUSH Q3H PRN; Protocol PRN Reason: Pain, Severe (Pain Scale 7-10) Last Admin: 01/26/24 09:34 Dose: 1.5 mg Documented By: KATHIE Hydroxyzine HCl (Hydroxyzine Hcl 25 Mg Tablet) 25 mg PO Q8H PRN PRN Reason: anxiety Piperacillin Sod/Tazobactam (Sod 4.5 gm/ Sodium Chloride) 100 mls @ 200 mls/hr IV Q6H [facility] Last Infusion: 01/26/24 09:16 Dose: Infused Documented By: KATHIE Lactated Ringer's (Lr) 1,000 mls @ 100 mls/hr IVCONT .Q10H [facility] Last Infusion: 01/26/24 12:59 Dose: 100 mls/hr Documented By: KATHIE Melatonin (Melatonin 3 Mg Tablet) 6 mg PO BEDTIME PRN PRN Reason: Insomnia Ondansetron HCl (Ondansetron Hcl 4 Mg/2 Ml Vial) 4 mg IVPUSH Q8H PRN PRN Reason: Nausea and Vomiting Last Admin: 01/23/24 19:48 Dose: 4 mg Documented By: MARY Sodium Chloride (0.9 % Sodium Chloride Flush 3 Ml Syringe) 3 ml IVFLUSH QSHIFT [facility] Last Admin: 01/26/24 08:48 Dose: 3 ml Documented By: KATHIE Labs 01/26/24 05:55 01/26/24 05:55 Labs: Laboratory Results - last 24 hr 01/26/24 05:55 MCV 82.3 MCH 26.4 L MCHC 32.1 RDW 16.1 H Plt Count 304 MPV 8.6 L Absolute Nucleated RBC 0.000 Nucleated RBC % (auto) 0.0 ESR 23 H Anion Gap 15 Estim Creat Clear Calc 101.1 Estimated GFR > 60 Random Glucose 98 Calcium 9.1 Total Bilirubin 0.6 AST 24 ALT 13 Alkaline Phosphatase 158 H C-Reactive Protein 2.78 H Total Protein 6.3 L Albumin 3.3 L Assessment and Plan (1) Dilated cbd, acquired: Status: Acute Assessment and Plan: d4 68yo F with hx NE, hx CVA; now bed-bound due to LLE contracture; paraparesis; chronic pain syndrome; ?dementia admitted for AMS, SIRS with question of cholangitis versus other source sepsis possible cholangitis versus other source of infection - CBD dilated to 12mm but per GI likely chronically so due to opiates; LFTs essentially normal. Unable to lay flat for MRCP. BCx negative. Cannot lay flat for MRCP. Will repeat US for CBD diatemter today. LFTs normal. - vanc 01/21-01/24, piperacillin-tazobactam 01/21-. BCx negative. NM bone scan negative for osteomyelitis. CRP coming down + leukocytosis resolved. Consult Infectious Disease. hypoK - replete IV; recheck in AM acute encephalopathy likely due to infection - resolved hx NE hx CVA - ASA chronic pain - baclofen, prn hydromorphone COPD not in acute exac - continue home inhalers concern for elder neglect - CM following VTE ppx - LMWH dispo - will likely need SNF In my clinical judgment, the patient requires continued inpatient hospitalization for the following reasons: IV ABX, ?source of sepsis Total time managing care of this patient today: 45 minutes. Quality Stroke Does the patient have a stroke diagnosis?: No VTE Prior VTE?: No VTE Risk Level:: Medical - moderate - high VTE Device Contraindication: Treatment Not Indicated VTE Drug Contraindication: N/A - Med Ordered
[2024-01-26 15:00] VITALS: BP 126/82; PULSE 102; RESP 20; TEMP 36.6; O2SAT 96
--- NOTE | 2024-01-26 15:10 | P.CNID_ITS ---
History of Present Illness Data of Consult Service Date: 01/25/24 Requesting physician: Luna Lilly Primary Care Provider: Bruce Acevedo III, MD HPI Reason for consult: leukocytosis,acute mental status changes She presents brought in by family. She is bedbound for two years. initial WBC 17.[address] abd,urine negative. 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 Bedbound History of CVA (cerebrovascular accident) Coronary artery disease Hyperlipidemia Hypertension Family History Family history: reviewed and not pertinent Social History Social History Household Members: Family and Unknown / Unable to assess Household Members Other:: 6 Housing: Unknown / Unable to assess Do you presently have visiting nurse or other home services: Yes (w/MEDICAL AFFAIRS MANAGER) Unable to assess alcohol history related to: Unable to respond Comment: pt complete immobile Patient Tobacco Use Status: Current everyday Tobacco user Tobacco use type: Cigarette Cigarette Packs Per Day: 1 Cigarettes Per Day: 20.0 Smoked in Last 30 Days: Yes Second Hand Smoke Exposure: Yes Use of substances other than those prescribed or required for medical reasons: No Substance Use Type: Opiates Currently Displaying Signs/Symptoms of Drug Intoxication Withdrawal: No Have you been hit, kicked, punched, or otherwise hurt by someone within the past year? If so, by whom?: No Do you feel safe in your current relationship?: Yes Is there a partner from a previous relationship who is making you feel unsafe now?: No Are you made to feel afraid or neglected: No Advance Directives: No Advance Directives Information Provided: Yes Do you have thoughts of harming others: None Do you have a plan to hurt others: No Plan Recently lost weight without trying: Unsure How much weight loss: Unsure Nutrition Risks: No Nutritional Risk Patient : No : No Poor oral hygiene: No service: No Meds Allergies Allergy/AdvReac Type Severity Reaction Status Date / Time No Known Allergies Allergy Verified 01/22/24 11:39 Active Medications: Current Medications Acetaminophen (Acetaminophen 325 Mg Tablet) 650 mg PO Q6H PRN PRN Reason: Pain, Mild (Pain Scale 1-3) Albuterol/Ipratropium (Albuterol/Iprat 2.5/0.5mg 3 Ml Ampul.Neb) 3 ml INHALE QID PRN PRN Reason: Shortness Of Breath Amlodipine Besylate (Amlodipine Besylate 5 Mg Tablet) 5 mg PO DAILY [facility]; Protocol Last Admin: 01/26/24 08:43 Dose: 5 mg Aspirin (Aspirin Enteric Coated 81 Mg Tablet.Dr) 81 mg PO DAILY [facility] Last Admin: 01/26/24 08:43 Dose: 81 mg Baclofen (Baclofen 20 Mg Tablet) 20 mg PO TID [facility] Last Admin: 01/26/24 14:56 Dose: 20 mg Benzonatate (Benzonatate 100 Mg Capsule) 100 mg PO TID PRN PRN Reason: Cough Docusate Sodium (Docusate Sodium 100 Mg Capsule) 100 mg PO DAILY PRN PRN Reason: Constipation Enoxaparin Sodium (Enoxaparin Sodium 40 Mg/0.4 Ml Syringe) 40 mg SUBCUT Q24H [facility] Last Admin: 01/25/24 20:32 Dose: 40 mg Fluticasone/Vilanterol (Fluticasone/Vilanterol 100/25 Blst.W.Dev) 1 puff INHALE RDAILY [facility] Last Admin: 01/26/24 07:57 Dose: Not Given Hydromorphone HCl (Hydromorphone Hcl 1 Mg/Ml Syringe) 1.5 mg IVPUSH Q3H PRN; Protocol PRN Reason: Pain, Severe (Pain Scale 7-10) Last Admin: 01/26/24 09:34 Dose: 1.5 mg Hydroxyzine HCl (Hydroxyzine Hcl 25 Mg Tablet) 25 mg PO Q8H PRN PRN Reason: anxiety Piperacillin Sod/Tazobactam (Sod 4.5 gm/ Sodium Chloride) 100 mls @ 200 mls/hr IV Q6H [facility] Last Infusion: 01/26/24 14:50 Dose: Infused Lactated Ringer's (Lr) 1,000 mls @ 100 mls/hr IVCONT .Q10H [facility] Last Infusion: 01/26/24 12:59 Dose: 100 mls/hr Melatonin (Melatonin 3 Mg Tablet) 6 mg PO BEDTIME PRN PRN Reason: Insomnia Ondansetron HCl (Ondansetron Hcl 4 Mg/2 Ml Vial) 4 mg IVPUSH Q8H PRN PRN Reason: Nausea and Vomiting Last Admin: 01/23/24 19:48 Dose: 4 mg Sodium Chloride (0.9 % Sodium Chloride Flush 3 Ml [facility]ringe) [facility] Last Admin: 01/26/24 15:03 Dose: Not Given Home Medications ?Medication ?Instructions ?Recorded ?Confirmed ?Last Taken ?Type aspirin 81 mg tablet,delayed 81 mg PO DAILY 12/23/23 01/22/24 Unknown History release baclofen 20 mg tablet 20 mg PO TID 12/23/23 01/22/24 Unknown History fluticasone 250 mcg-salmeterol 50 1 ea inhalation BID 12/23/23 01/22/24 Unknown History mcg/dose blistr powdr for inhalation hydroxyzine HCl 25 mg tablet 25 mg PO Q8H PRN anxiety 12/23/23 01/22/24 Unknown History ipratropium 20 mcg-albuterol 100 1 puff inhalation QID PRN 12/23/23 01/22/24 Unknown History mcg/actuation mist for inhalation Shortness Of Breath (Combivent Respimat) oxycodone 20 mg tablet 20 mg PO TID 12/23/23 01/22/24 Unknown History Physical Exam 2 Vital Signs: Vital Signs: Last Vital Signs Temp 97.8 F 01/26/24 15:00 Pulse 102 H 01/26/24 15:00 Resp 20 01/26/24 15:00 BP 126/82 01/26/24 15:00 Pulse Ox 96 01/26/24 15:00 O2 Del Method Room Air 01/26/24 15:00 BMI result Body Mass Index 28.1 Const: General: cooperative HEENT: Head: Yes normal to inspection Face and sinus: Yes normal facial exam Mouth: Normal oral and palatal mucosa present Teeth and gingiva: d entition normal Eyes: General: appearance normal, both eyes and all related structures P upils: Equal, round and reactive pupils present Resp: Effort & Inspection: normal respiratory effort Cardio: Rate: regular rate Rhythm: regular rhythm GI: Palpation (GI): Soft to palpation and nontender : General: Yes no CVA tenderness Back/Spine/Pelvis: Back: no CVA tenderness Skin: Other: some mild irritation legs General skin exam: no rashes or lesions noted Neuro: General: moves all extremities Cranial nerves: Yes Equal, round and reactive pupils present Extrem: General: Yes normal to inspection Psych: Other: encephalopathy Results Labs 01/26/24 05:55 01/26/24 05:55 Labs: Short CBC 01/26/24 Range/Units 05:55 WBC 9.7 (4.8-10.8) X10*3/uL Hgb 14.6 (12.0-16.0) g/dl Hct 45.5 (37.0-47.0) % Plt Count 304 (160-400) X10*3/uL BMP 01/26/24 05:55 Sodium 145 Potassium 3.2 L Chloride 110 H Carbon Dioxide 23 BUN 6 L Creatinine 0.53 Calcium 9.1 Liver Function 01/26/24 Range/Units 05:55 Total Bilirubin 0.6 (0.0-1.0) mg/dL AST 24 (5-31) U/L ALT 13 (0-31) U/L Alkaline Phosphatase 158 H (39-117) U/L Albumin 3.3 L (3.5-5.0) g/dL Microbiology Microbiology Results: Microbiology 01/22/24 12:10 Blood - Venous Blood Culture - Preliminary No growth after 48 hours. 01/22/24 11:56 Blood - Venous Blood Culture - Preliminary No growth after 48 hours. Assessment and Plan (1) Leukocytosis: Status: Acute Patient had leukocytosis There is no evidence seen bacterial infection Possible viral syndrome She has had 5 day Zosyn which would have covered any bacterial infection like aspiration Would stop Zosyn tomorrow.
[2024-01-26 15:39] VITALS: BP 134/80; PULSE 91; RESP 16; TEMP 36.6; O2SAT 93
[2024-01-26 19:06] VITALS: BP 134/83; PULSE 95; RESP 18; TEMP 36.5; O2SAT 97
[2024-01-26] MEDS: Enoxaparin Sodium 40 MG/0.4 ML SYRINGE SUBCUT (21:03)
[2024-01-27] MEDS: HYDROmorphone HCl 1 MG/ML SYRINGE 1.5 MG IVPUSH ×4 (00:04→22:03)
[2024-01-27] MEDS: Piperacillin Sodium/Tazobactam 4.5 GM in 0.9 % Sodium Chloride 100 ML IV ×2 (02:37→07:30)
[2024-01-27 02:56] VITALS: BP 164/70; PULSE 84; RESP 17; TEMP 36.5; O2SAT 95
--- NOTE | 2024-01-27 03:10 | PC.NURSE ---
Patient did not void since FC removal, bladder scanned for 122 ml.
[2024-01-27 07:13] VITALS: BP 150/78; PULSE 84; RESP 14; TEMP 36.7; O2SAT 97
[2024-01-27] MEDS: Baclofen 20 MG TABLET PO ×3 (07:33→19:58)
[2024-01-27] MEDS: amLODIPine Besylate 5 MG TABLET PO (07:33)
[2024-01-27] MEDS: Aspirin Enteric Coated 81 MG TABLET.DR PO (07:33)
--- NOTE | 2024-01-27 10:42 | MHC.CM.PN ---
Addendum entered by Elisha Miranda RN 01/27/24 15:32: Per MD note, no dc today, likely tomorrow. IMM delivered. Addendum entered by Elisha Miranda RN 01/27/24 11:02: CM reviewed dc plan w/ who is also agreeable. CM will continue to follow. Original Note: CM met with patient, more alert today. Oriented to self and place. States she knows the year but cannot verbalize. Per RN mental status can wax and wane. Per MD rounds, not medically cleared at this time but potentially later today. When asked if patient feels safe at home she responds absolutely. When asked if patient would like to return home she responds yes. Also states she feels her family takes good care of her, primarily her daughter Morenita. CM reviewed [facility] referral for additional supports and [facility] referral. Patient agreeable to both. CM will continue to follow for dc needs.
[2024-01-27 11:33] LABS: Gamma Glutamyl Transpeptidase 80 U/L (7-33)
[2024-01-27 11:44] LABS: Alanine Aminotransferase 13 U/L (0-31); Albumin Level 2.9 g/dL (3.5-5.0); Alkaline Phosphatase 120 U/L (39-117); Aspartate Amino Transferase 22 U/L (5-31); Bilirubin Direct 0.1 mg/dL (0.0-0.5); Lipase 11 U/L (8-78); Total Protein 5.4 g/dL (6.5-8.0)
[2024-01-27 11:53] LABS: Bilirubin Total 0.5 mg/dL (0.0-1.0)
[2024-01-27 12:52] LABS: Anion Gap 14 (12-20); Blood Urea Nitrogen 6 mg/dL (9-16); Carbon Dioxide 25 mmol/L (22-29); Chloride 109 mmol/L (96-108); Creatinine Clr Calc Pharmacy 97.4; Estimated Glomerular Filt Rate > 60; Glucose Random 85 mg/dL (60-115); Potassium 3.2 mmol/L (3.3-5.1); Sodium 145 mmol/L (135-145)
[2024-01-27 13:01] LABS: Calcium 8.3 mg/dL (8.4-10.2)
[2024-01-27] MEDS: 0.9 % Sodium Chloride Flush 3 ML SYRINGE IVFLUSH (14:07)
--- NOTE | 2024-01-27 15:01 | HO.PM.IMPN ---
Subjective Subjective Date of Service: 01/27/24 Interval History: feels well, no pain + no cough Review of Systems Review of Systems: Yes all other systems are reviewed and are negative Physical Exam Vital Signs: Vital Signs: Last Vital Signs Temp 98.1 F 01/27/24 07:13 Pulse 84 01/27/24 07:13 Resp 14 01/27/24 07:13 BP 150/78 H 01/27/24 07:13 Pulse Ox 97 01/27/24 07:13 O2 Del Method Room Air 01/27/24 07:13 BMI result Body Mass Index 28.1 Gen: in no acute distress HEENT: sclera anicteric, moist mucus membranes Neck: supple Lungs: clear to auscultation bilaterally Heart: regular rate and rhythm, no murmurs Abd: soft, non-tender, non-distended Ext: no edema Skin: warm/well-perfused Neuro: alert and oriented x3, RLE + LLE weakness; bedbound; LLE contracted Psych: appropriate affect Objective Data Active Medications Acetaminophen (Acetaminophen 325 Mg Tablet) 650 mg PO Q6H PRN PRN Reason: Pain, Mild (Pain Scale 1-3) Albuterol/Ipratropium (Albuterol/Iprat 2.5/0.5mg 3 Ml Ampul.Neb) 3 ml INHALE QID PRN PRN Reason: Shortness Of Breath Amlodipine Besylate (Amlodipine Besylate 5 Mg Tablet) 5 mg PO DAILY [facility]; Protocol Last Admin: 01/27/24 07:33 Dose: 5 mg Documented By: AMBERLY Aspirin (Aspirin Enteric Coated 81 Mg Tablet.) 81 mg PO DAILY [facility] Last Admin: 01/27/24 07:33 Dose: 81 mg Documented By: AMBERLY Baclofen (Baclofen 20 Mg Tablet) 20 mg PO TID [facility] Last Admin: 01/27/24 14:07 Dose: 20 mg Documented By: AMBERLY Benzonatate (Benzonatate 100 Mg Capsule) 100 mg PO TID PRN PRN Reason: Cough Docusate Sodium (Docusate Sodium 100 Mg Capsule) 100 mg PO DAILY PRN PRN Reason: Constipation Enoxaparin Sodium (Enoxaparin Sodium 40 Mg/0.4 Ml Syringe) 40 mg SUBCUT Q24H [facility] Last Admin: 01/26/24 21:03 Dose: 40 mg Documented By: LUIS ALFREDO Fluticasone/Vilanterol (Fluticasone/Vilanterol 100/25 Blst.W.Dev) 1 puff INHALE RDAILY [facility] Last Admin: 01/27/24 07:42 Dose: Not Given Documented By: PB Non-Admin Reason: See Note Hydromorphone HCl (Hydromorphone Hcl 1 Mg/Ml Syringe) 1.5 mg IVPUSH Q3H PRN; Protocol PRN Reason: Pain, Severe (Pain Scale 7-10) Last Admin: 01/27/24 14:02 Dose: 1.5 mg Documented By: AMBERLY Hydroxyzine HCl (Hydroxyzine Hcl 25 Mg Tablet) 25 mg PO Q8H PRN PRN Reason: anxiety Melatonin (Melatonin 3 Mg Tablet) 6 mg PO BEDTIME PRN PRN Reason: Insomnia Ondansetron HCl (Ondansetron Hcl 4 Mg/2 Ml Vial) 4 mg IVPUSH Q8H PRN PRN Reason: Nausea and Vomiting Last Admin: 01/23/24 19:48 Dose: 4 mg Documented By: MARY Sodium Chloride (0.9 % Sodium Chloride Flush 3 Ml Syringe) [facility] Last Admin: 01/27/24 14:07 Dose: 3 ml Documented By: AMBERLY Labs 01/26/24 05:55 01/27/24 10:53 Labs: Laboratory Results - last 24 hr 01/27/24 10:53 Hold Purple Top SEE NOTE Anion Gap 14 Estim Creat Clear Calc 97.4 Estimated GFR > 60 Random Glucose 85 Calcium 8.3 L D Magnesium 2.0 Total Bilirubin 0.5 Direct Bilirubin 0.1 GGT 80 H AST 22 ALT 13 Alkaline Phosphatase 120 H Total Protein 5.4 L Albumin 2.9 L Lipase 11 Microbiology Microbiology Results: Microbiology 01/22/24 12:10 Blood Culture - Final Blood - Venous No growth after 5 days. 01/22/24 11:56 Blood Culture - Final Blood - Venous No growth after 5 days. Assessment and Plan (1) Dilated cbd, acquired: Status: Acute Assessment and Plan: d5 68yo F with hx NH, hx CVA; now bed-bound due to LLE contracture; paraparesis; chronic pain syndrome; ?dementia admitted for AMS, SIRS with question of cholangitis versus other source sepsis, likely viral possible cholangitis versus other source of infection - CBD dilated to 12mm but per GI likely chronically so due to opiates; LFTs essentially normal. Unable to lay flat for MRCP. BCx negative. Cannot lay flat for MRCP. US shows 10 mm dilated CBD with possible 14mm stone in ampulla but pt completely asymptomatic. Will discuss with GI. - vanc 01/21-01/24, piperacillin-tazobactam 01/21-01/26. BCx negative. NM bone scan negative for osteomyelitis. CRP coming down + leukocytosis resolved. Per ID likely viral syndrome, no evidence for bacterial infection. D/c piperacillin-tazobactam and continue to monitor hypoK - replete PO; recheck in AM acute encephalopathy likely due to infection - resolved hx NH hx CVA - ASA chronic pain - baclofen, prn hydromorphone COPD not in acute exac - continue home inhalers concern for elder neglect - CM following VTE ppx - LMWH dispo - plan home with VNA, possibly tomorrow In my clinical judgment, the patient requires continued inpatient hospitalization for the following reasons: sepsis of unknown source, monitoring without antibiotics for next 24h Total time managing care of this patient today: 45 minutes. Quality Stroke Does the patient have a stroke diagnosis?: No VTE Prior VTE?: No VTE Risk Level:: Medical - moderate - high VTE Device Contraindication: Treatment Not Indicated VTE Drug Contraindication: N/A - Med Ordered
[2024-01-27] MEDS: Potassium Chloride Packet 20 MEQ PACKET 40 MEQ PO (15:19)
[2024-01-27 15:20] VITALS: BP 162/71; PULSE 79; RESP 18; TEMP 36.3; O2SAT 98
[2024-01-27 15:28] VITALS: BP 150/74
[2024-01-27] MEDS: Enoxaparin Sodium 40 MG/0.4 ML SYRINGE SUBCUT (19:58)
[2024-01-27 20:00] VITALS: BP 146/68; PULSE 95; RESP 18; TEMP 36.7; O2SAT 97
[2024-01-28] MEDS: 0.9 % Sodium Chloride Flush 3 ML SYRINGE IVFLUSH ×4 (00:03→20:09)
[2024-01-28] MEDS: HYDROmorphone HCl 1 MG/ML SYRINGE 1.5 MG IVPUSH (02:32)
--- NOTE | 2024-01-28 02:46 | PC.NURSE ---
pt is total incontinent and bedbound, offered purewick but refused it. pt was laughing and crying at the same time while we were provided incontinent care. Assume that pt ADL care at home is extremely difficult d/t severe pain and good communication skills. while giving the care pt screaming, crying, and bagging us not to touch the leg, eventhough given 1.5 mg of dilaudid. also pt seems like with it. left knee is swelling and contracture, elin. leg skin accumulations, buttock, healing of maceration
[2024-01-28 03:45] VITALS: BP 161/72; PULSE 75; RESP 18; TEMP 36.3; O2SAT 97
[2024-01-28 05:53] LABS: Anion Gap 10 (12-20); Blood Urea Nitrogen 7 mg/dL (9-16); C Reactive Protein 1.32 mg/dL (< or = 0.50); Calcium 8.6 mg/dL (8.4-10.2); Carbon Dioxide 26 mmol/L (22-29); Chloride 111 mmol/L (96-108); Estimated Glomerular Filt Rate > 60; Glucose Random 98 mg/dL (60-115); Potassium 3.2 mmol/L (3.3-5.1); Sodium 144 mmol/L (135-145)
[2024-01-28 08:00] VITALS: BP 197/93; PULSE 88; RESP 16; TEMP 36.7; O2SAT 97
[2024-01-28] MEDS: Aspirin Enteric Coated 81 MG TABLET.DR PO (08:40)
[2024-01-28] MEDS: amLODIPine Besylate 5 MG TABLET PO ×2 (08:40→18:35)
[2024-01-28] MEDS: Baclofen 20 MG TABLET PO ×3 (08:40→20:44)
[2024-01-28] MEDS: Potassium Chloride ER 20 MEQ TAB.ER.PRT PO (08:40)
--- NOTE | 2024-01-28 11:32 | MHC.CM.PN ---
Addendum entered by Elmira Williamson 01/28/24 11:57: Patient has arranged for her dtr to provide transport home. Patient has a script for a new walker. Her dtr can pick it up on the way home. Original Note: Per MD rounds 2nd GI consult ordered. Patient may discharge later this afternoon. DP Home with resumption of UNIT AID/DTR and new HVNA. Patient will require BLS transport home.
[2024-01-28 11:39] VITALS: BP 180/88
--- NOTE | 2024-01-28 11:43 | PC.NURSE ---
Addendum entered by Raissa Rogers RN 01/28/24 18:33: MD Lilly made aware at 18:25 pts blood pressure continues to be elevated, last reading 187/87, 1x dose amlodipine ordered. Original Note: MD Lilly made aware pts elevated BP this am and afternoon, last pressure 180/88 manual, pt denies S&S, no new orders at this time.
--- NOTE | 2024-01-28 12:53 | HO.PM.IMPN ---
Subjective Subjective Date of Service: 01/28/24 Interval History: feeling well; denies abd pain; wants to go home Review of Systems Review of Systems: Yes all other systems are reviewed and are negative Physical Exam Vital Signs: Vital Signs: Last Vital Signs Temp 98.1 F 01/28/24 08:00 Pulse 88 01/28/24 08:00 Resp 16 01/28/24 08:00 BP 180/88 H 01/28/24 11:39 Pulse Ox 97 01/28/24 08:00 O2 Del Method Room Air 01/28/24 08:00 BMI result Body Mass Index 28.1 Gen: in no acute distress HEENT: sclera anicteric, moist mucus membranes Neck: supple Lungs: clear to auscultation bilaterally Heart: regular rate and rhythm, no murmurs Abd: soft, non-tender, non-distended Ext: no edema Skin: warm/well-perfused Neuro: alert and oriented x3, RLE + LLE weakness; bedbound; LLE contracted [chronic findings] Psych: appropriate affect Objective Data Active Medications Acetaminophen (Acetaminophen 325 Mg Tablet) 650 mg PO Q6H PRN PRN Reason: Pain, Mild (Pain Scale 1-3) Albuterol/Ipratropium (Albuterol/Iprat 2.5/0.5mg 3 Ml Ampul.Neb) 3 ml INHALE QID PRN PRN Reason: Shortness Of Breath Amlodipine Besylate (Amlodipine Besylate 5 Mg Tablet) 5 mg PO DAILY [facility]; Protocol Last Admin: 01/28/24 08:40 Dose: 5 mg Documented By: RICH Aspirin (Aspirin Enteric Coated 81 Mg Tablet.) 81 mg PO DAILY [facility] [place] Last Admin: 01/28/24 08:40 Dose: 81 mg Documented By: RICH Baclofen (Baclofen 20 Mg Tablet) 20 mg PO TID [facility] [place] Last Admin: 01/28/24 08:40 Dose: 20 mg Documented By: RICH Benzonatate (Benzonatate 100 Mg Capsule) 100 mg PO TID PRN PRN Reason: Cough Docusate Sodium (Docusate Sodium 100 Mg Capsule) 100 mg PO DAILY PRN PRN Reason: Constipation Enoxaparin Sodium (Enoxaparin Sodium 40 Mg/0.4 Ml Syringe) 40 mg SUBCUT Q24H [facility] [place] Last Admin: 01/27/24 19:58 Dose: 40 mg Documented By: JOSHUA Fluticasone/Vilanterol (Fluticasone/Vilanterol 100/25 Blst.W.Dev) 1 puff INHALE RDAILY [facility] [place] Last Admin: 01/28/24 08:01 Dose: Not Given Documented By: MONAE Non-Admin Reason: Patient Refused Hydromorphone HCl (Hydromorphone Hcl 1 Mg/Ml Syringe) 1.5 mg IVPUSH Q3H PRN; Protocol PRN Reason: Pain, Severe (Pain Scale 7-10) Last Admin: 01/28/24 02:32 Dose: 1.5 mg Documented By: CLARA Hydroxyzine HCl (Hydroxyzine Hcl 25 Mg Tablet) 25 mg PO Q8H PRN PRN Reason: anxiety Melatonin (Melatonin 3 Mg Tablet) 6 mg PO BEDTIME PRN PRN Reason: Insomnia Ondansetron HCl (Ondansetron Hcl 4 Mg/2 Ml Vial) 4 mg IVPUSH Q8H PRN PRN Reason: Nausea and Vomiting Last Admin: 01/23/24 19:48 Dose: 4 mg Documented By: MARY Potassium Chloride (Potassium Chloride Er 20 Meq Tab.Er.Prt) 20 meq PO DAILY [facility] Last Admin: 01/28/24 08:40 Dose: 20 meq Documented By: RICH Sodium Chloride (0.9 % Sodium Chloride Flush 3 Ml Syringe) 3 ml IVFLUSH QSHIFT [facility] Last Admin: 01/28/24 08:40 Dose: 3 ml Documented By: RICH Labs 01/26/24 05:55 01/28/24 04:51 Labs: Laboratory Results - last 24 hr 01/27/24 01/28/24 10:53 04:51 Hold Purple Top SEE NOTE Anion Gap 10 L Estim Creat Clear Calc 103.0 Estimated GFR > 60 Random Glucose 98 Calcium 8.3 L D 8.6 C-Reactive Protein 1.32 H Microbiology Microbiology Results: Microbiology 01/22/24 12:10 Blood Culture - Final Blood - Venous No growth after 5 days. 01/22/24 11:56 Blood Culture - Final Blood - Venous No growth after 5 days. Assessment and Plan (1) Dilated cbd, acquired: Status: Acute Assessment and Plan: d6 68yo F with hx [place], hx CVA; now bed-bound due to LLE contracture; paraparesis; chronic pain syndrome; ?dementia admitted for AMS, SIRS with question of cholangitis versus other source sepsis, likely viral possible cholangitis versus other source of infection - CBD dilated to 12mm but per GI likely chronically so due to opiates; LFTs essentially normal. Unable to lay flat for MRCP. BCx negative. Cannot lay flat for MRCP. US shows 10 mm dilated CBD with possible 14mm stone in ampulla but pt completely asymptomatic. Discussed with GI and will order HIDA scan. If contrast empties into small bowel rapidly, no further workup. If delayed or no emptying, ERCP. - vanc 01/21-01/24, piperacillin-tazobactam 01/21-01/26. BCx negative. NM bone scan negative for osteomyelitis. CRP coming down + leukocytosis resolved. Per ID likely viral syndrome, no evidence for bacterial infection. D/c'ed piperacillin-tazobactam and continue to monitor hypoK - replete PO; recheck in AM acute encephalopathy likely due to infection - resolved hx [place] hx CVA - ASA chronic pain - baclofen, prn hydromorphone COPD not in acute exac - continue home inhalers concern for elder neglect - CM following, pt denies she is being neglected VTE ppx - LMWH dispo - plan home with VNA, possibly tomorrow In my clinical judgment, the patient requires continued inpatient hospitalization for the following reasons: sepsis of unknown source, monitoring without antibiotics, HIDA scan Total time managing care of this patient today: 45 minutes. Quality Stroke Does the patient have a stroke diagnosis?: No VTE Prior VTE?: No VTE Risk Level:: Medical - moderate - high VTE Device Contraindication: Treatment Not Indicated VTE Drug Contraindication: N/A - Med Ordered
[2024-01-28] MEDS: HYDROmorphone HCl 1 MG/ML SYRINGE 0.75 MG IVPUSH ×2 (13:57→21:56)
[2024-01-28 18:24] VITALS: BP 187/87; PULSE 103; TEMP 36.2; O2SAT 97
[2024-01-28 19:49] VITALS: BP 155/93; PULSE 100; RESP 16; TEMP 36.6; O2SAT 95
[2024-01-28] MEDS: Enoxaparin Sodium 40 MG/0.4 ML SYRINGE SUBCUT (20:09)
[2024-01-29 03:34] VITALS: BP 166/74; PULSE 99; RESP 18; TEMP 36.1; O2SAT 94
[2024-01-29] MEDS: HYDROmorphone HCl 1 MG/ML SYRINGE 0.75 MG IVPUSH ×3 (03:53→16:14)
[2024-01-29 07:00] VITALS: BP 162/84; PULSE 86; RESP 18; TEMP 36.6; O2SAT 96
[2024-01-29 07:11] LABS: Anion Gap 13 (12-20); Blood Urea Nitrogen 5 mg/dL (9-16); Calcium 8.8 mg/dL (8.4-10.2); Carbon Dioxide 22 mmol/L (22-29); Chloride 112 mmol/L (96-108); Estimated Glomerular Filt Rate > 60; Glucose Random 101 mg/dL (60-115); Potassium 3.9 mmol/L (3.3-5.1); Sodium 143 mmol/L (135-145)
[2024-01-29] MEDS: Aspirin Enteric Coated 81 MG TABLET.DR PO (08:03)
[2024-01-29] MEDS: amLODIPine Besylate 10 MG TABLET PO (08:03)
[2024-01-29] MEDS: 0.9 % Sodium Chloride Flush 3 ML SYRINGE IVFLUSH (08:03)
[2024-01-29] MEDS: Potassium Chloride ER 20 MEQ TAB.ER.PRT PO (08:03)
[2024-01-29] MEDS: Baclofen 20 MG TABLET PO ×2 (08:04→14:40)
--- NOTE | 2024-01-29 12:01 | W.MHC.F2F ---
Service Date Service Date: 01/29/24 Encounter Date of encounter: 01/29/24 Reasons for Services Signs and symptoms assessed: chronic pain contracture Reason for alf: medication management, medication treatment and teach disease management Reason for physical therapy: home safety and mobility, therapeutic exercises, assess need for DME, ADL training and energy conservation Overseeing Care: Bruce Acevedo III Homebound: Leaving the home is medically contraindicated at this time without the asist of a device and/or another person due th the listed conditions above and below. Reason homebound: bedbound/chairbound Certification: Based on the above findings, I certify that this patient is confined to the home and needs intermittent alf care, physical therapy and/or speech therapy, or continues to need occupational therapy. The patient is under my care, and I have initiated the establishment of the plan of care. The patient will be followed by a physician who will periodically review the plan of care. Time Spent With Patient Time: Total time managing care of this patient today ____ minutes.
--- NOTE | 2024-01-29 12:04 | P.DS_ITS ---
DS: Providers Provider Date of Service: 01/29/24 Date of admission: 01/22/24 19:38 Date of discharge: 01/29/24 Primary care physician: Bruce Acevedo III, MD Consults: 01/22/24 19:43 Consult to Gastroenterology Routine Consulting Provider: Landy Douglas Reason for consultation: ?CBD stone with dilation to 1.5 cm 01/23/24 16:53 Consult to Wound Care Routine Reason for consultation: redness buttocks, back, thighs, right hip Has provider been notified: Yes 01/25/24 10:30 Consult to Infectious Diseases Routine Consulting Provider: [facility] Infectious Disease Reason for consultation: sepsis ?source. doubt cholangitis [CBD chronic?]- hip osteo? DS: Diagnosis Discharge Diagnosis (1) Dilated cbd, acquired: Status: Acute (2) Viral sepsis: Status: Acute (3) Essential hypertension: Status: Acute (4) Hypokalemia: Status: Acute (5) Encephalopathy due to infection: Status: Acute DS: Summary Hospital Course Hospital Course: From the history and physical by the admitting hospitalist, Lucas Medina MD, 01/22/24: Pt is a 68-year-old female with a PMH significant for?HTN, HLD, hx of WA, hx of multiple CVAs now bed-bound due to contracture of left leg and left and right lower extremity paresis, chronic pain syndrome on chronic opioid therapy, and likely dementia who presents to the ED from home?for evaluation of altered mental status and intractable pain. Pt is alert and oriented to person only and incapable of providing an accurate HPI which instead is taken from chart and provider review and family via phone call. According to family patient was complaining of left hip and left leg pain, but was able to sleep throughout the night without complaints. When patient awoke this morning was crying out in pain, appeared altered, and could not articulate source of discomfort. Pt has been bed-bound for over 2 years and family denies any recent falls. Has hospital bed at home. When EMS arrived they reported pt was covered in feces and an unknown type of bugs. In the ED pt has been difficult to interview and examine, constantly crying out and not allowing for substantive physical exam. During interview pt unable to answer questions appropriately, often speaking nonsensically. According to family, patient is capable of making her needs known, though was not alert and oriented to time. In the ED pt was tachycardic up to 140 and hypertensive to 172/75, vitals otherwise WNL. Labs were significant for leukocytosis of 17.9, lactic acid 4.4 with repeat 2.2, alk-phos 167, and C-reactive protein 10.56. No significant electrolyte abnormalities. Renal function WNL. Tested negative for COVID, influenza, RSV. UA negative for UTI. CXR showed no evidence for acute disease in the chest. CT of abdomen and pelvis found question of distal CBD calculus with CBD dilation measuring up to 1.5 cm in diameter and with some mild central intrahepatic bile duct prominence. No evidence of bowel ileus or obstruction. Also showed 3.2 cm infrarenal AAA for which follow-up every [address]?of head showed no acute intracranial hemorrhage, mass effect, hydrocephalus, or acute territorial edematous infarction, but did show moderate chronic white matter microangiopathy and age indeterminate but likely chronic lacunar infarct in left thalamus. EKG demonstrated sinus tachycardia of 128 with bilateral enlargement, pulmonary disease pattern, and ST depressions in lateral leads. Pt was treated with hydromorphone, droperidol, IVF, Zosyn, and vancomycin. Pt will be admitted to the hospital for treatment and further evaluation of intractable pain and AMS possibly secondary to cholangitis. 68yo F with hx WA, hx CVA; now bed-bound due to LLE contracture; paraparesis; chronic pain syndrome; question of dementia. dementia. She was admitted for AMS, SIRS with question of cholangitis versus other source. She was treated with vancomycin for 3 days and Zosyn for 5 days. Despite CBD dilation to 12mm, LFTs were normal and she did not have any abdominal pain or tenderness. Blood cultures were negative. Leukocytosis resolved and CRP came down consistently. Unfortunately, she could not lay flat for an MRCP. Repeat US showed a 10 mm dilated CBD with question of ampullary stone, but as above, the patient was completely asymptomatic with normal LFTs and normal lipase. Gastroenterology and Infectious Disease were consulted. She was observed off of antibiotics for two days. HIDA scan showed functionally patent common bile duct. Per ID, she likely had a viral infection. Potassium was repleted. Mental status returned to baseline. She was started on amlodipine for hypertension. Case Management was in touch with [facility]. The patient denies any abuse or neglect. She was cleared for discharge back home with VNA services. Time Attestation Discharge Coordination Time (in mins): 45 Quality: Safe Use of Opioids Does Pt have an Active Cancer Diagnosis on the Problem List?: No Quality: Stroke Does the patient have a stroke diagnosis?: No Physical Exam Vital Signs: Vital Signs: Last Vital Signs Temp 97.8 F 01/29/24 07:00 Pulse 86 01/29/24 07:00 Resp 18 01/29/24 07:00 BP 162/84 H 01/29/24 07:00 Pulse Ox 96 01/29/24 07:00 O2 Del Method Room Air 01/29/24 07:00 BMI result Body Mass Index 28.1 Gen: in no acute distress HEENT: sclera anicteric, moist mucus membranes Neck: supple Lungs: clear to auscultation bilaterally Heart: regular rate and rhythm, no murmurs Abd: soft, non-tender, non-distended Ext: no edema Skin: warm/well-perfused Neuro: alert and oriented x3, RLE + LLE weakness; bedbound; LLE contracted [chronic findings] Psych: appropriate affect DS: Data Data Completed and Pending Completed studies during hospitalization [Text1]: Laboratory Results WBC 9.7 X10*3/uL (4.8-10.8) 01/26/24 05:55 RBC 5.53 X10*6/uL (4.20-5.50) H 01/26/24 05:55 Hgb 14.6 g/dl (12.0-16.0) 01/26/24 05:55 Hct 45.5 % (37.0-47.0) 01/26/24 05:55 MCV 82.3 fL (80.0-98.0) 01/26/24 05:55 MCH 26.4 pg (27.0-33.0) L 01/26/24 05:55 MCHC 32.1 g/dl (31.0-35.0) 01/26/24 05:55 RDW 16.1 % (11.0-16.0) H 01/26/24 05:55 Plt Count 304 X10*3/uL (160-400) 01/26/24 05:55 MPV 8.6 fL (9.4-12.3) L 01/26/24 05:55 Immature Gran % (Auto) 0.4 % (0.0-0.4) 01/22/24 11:56 Neut % (Auto) 77.0 % (45-73) H 01/22/24 11:56 Lymph % (Auto) 17.6 % (20-40) L 01/22/24 11:56 [place] % (Auto) 4.4 % (2-11) 01/22/24 11:56 Eos % (Auto) 0.2 % (0-4) 01/22/24 11:56 Baso % (Auto) 0.4 % (0-2) 01/22/24 11:56 Lymph # (Auto) 3.2 X10*3/uL (1.2-4.9) 01/22/24 11:56 [place] # (Auto) 0.8 X10*3/uL (0.1-1.2) 01/22/24 11:56 Eos # (Auto) 0.0 X10*3/uL (0.0-0.4) 01/22/24 11:56 Baso # (Auto) 0.1 X10*3/uL (0.0-0.2) 01/22/24 11:56 Abs Immat Gran (auto) 0.08 X10*3/uL (0.00-0.03) H 01/22/24 11:56 Absolute Neuts (auto) 13.8 x10*3/uL (2.0-8.3) H 01/22/24 11:56 Absolute Nucleated RBC 0.000 X10*3/uL (0.0-0.012) 01/26/24 05:55 Nucleated RBC % (auto) 0.0 /100WBC (0.0-0.2) 01/26/24 05:55 ESR 23 MM/HR (0-20) H 01/26/24 05:55 Hold Purple Top Cancelled 01/29/24 05:49 PT 11.6 SEC (11.1-13.3) 01/22/24 12:10 INR 1.0 (0.9-1.1) 01/22/24 12:10 VBG pH 7.41 (7.32-7.43) 01/22/24 15:19 VBG pCO2 37 mmHg 01/22/24 15:19 VBG pO2 46 mmHg 01/22/24 15:19 VBG HCO3 23 mmol/L (22-26) 01/22/24 15:19 VBG O2 Saturation 73.0 % 01/22/24 15:19 VBG Base Excess -0.2 mmol/L 01/22/24 15:19 Sodium 143 mmol/L (135-145) 01/29/24 05:49 Potassium 3.9 mmol/L (3.3-5.1) D 01/29/24 05:49 Chloride 112 mmol/L (96-108) H 01/29/24 05:49 Carbon Dioxide 22 mmol/L (22-29) 01/29/24 05:49 Anion Gap 13 (12-20) 01/29/24 05:49 BUN 5 mg/dL (9-16) L 01/29/24 05:49 Creatinine 0.47 mg/dL (0.5-1.4) L 01/29/24 05:49 Estim Creat Clear Calc 114.0 01/29/24 05:49 Estimated GFR > 60 01/29/24 05:49 POC Glucose 102 mg/dL (60-115) 01/23/24 11:24 Random Glucose 101 mg/dL (60-115) 01/29/24 05:49 Lactic Acid 4.4 mmol/L (0.5-2.0) H* 01/22/24 11:56 Lactic Acid F/U @ 2Hr 2.2 mmol/L (0.5-2.0) H* 01/22/24 15:11 Lactic Acid F/U @ 4Hr 1.5 mmol/L (0.5-2.0) 01/22/24 17:57 Calcium 8.8 mg/dL (8.4-10.2) 01/29/24 05:49 Magnesium 2.0 mg/dL (1.6-2.6) 01/27/24 10:53 Total Bilirubin 0.5 mg/dL (0.0-1.0) 01/27/24 10:53 Direct Bilirubin 0.1 mg/dL (0.0-0.5) 01/27/24 10:53 GGT 80 U/L (7-33) H 01/27/24 10:53 AST 22 U/L (5-31) 01/27/24 10:53 ALT 13 U/L (0-31) 01/27/24 10:53 Alkaline Phosphatase 120 U/L (39-117) H 01/27/24 10:53 Ammonia 33 umol/L (13-55) 01/22/24 11:56 Total Creatine Kinase 77 U/L (26-140) 01/22/24 11:56 Total Creatine Kinase Cancelled 01/22/24 11:56 Troponin I High Sens 4.5 ng/L (<3.5-17.0) 01/22/24 11:56 C-Reactive Protein 1.32 mg/dL (< or = 0.50) H 01/28/24 04:51 Total Protein 5.4 g/dL (6.5-8.0) L 01/27/24 10:53 Albumin 2.9 g/dL (3.5-5.0) L 01/27/24 10:53 Lipase 11 U/L (8-78) 01/27/24 10:53 Procalcitonin 0.02 ng/mL 01/22/24 15:11 Urine Color Yellow 01/22/24 11:58 Urine Appearance Turbid 01/22/24 11:58 Urine pH >= 9.0 (5.0-9.0) 01/22/24 11:58 Ur Specific [place]comb 1.010 (1.005-1.025) 01/22/24 11:58 Urine Protein Negative mg/dL (Neg-Trace) 01/22/24 11:58 Urine Glucose (UA) Negative mg/dL (Negative) 01/22/24 11:58 Urine Ketones Trace mg/dL (Negative) 01/22/24 11:58 Urine Blood Negative (Negative) 01/22/24 11:58 Urine Nitrite Negative (Negative) 01/22/24 11:58 Ur Leukocyte Esterase Negative (Negative) 01/22/24 11:58 Random Vancomycin 12.0 mcg/mL (15-20) L 01/24/24 05:56 Ethyl Alcohol < 10 mg/dL 01/22/24 11:58 Influenza Type A (PCR) NEGATIVE (Negative) 01/22/24 12:10 Influenza Type B (PCR) NEGATIVE (Negative) 01/22/24 12:10 RSV RNA Qual (PCR) NEGATIVE (Negative) 01/22/24 12:10 SARS-CoV-2 RNA (RT-PCR) NEGATIVE (Negative) 01/22/24 12:10 Impressions Chest X-Ray 01/22/24 13:10 IMPRESSION: No evidence for acute disease in the chest. Abdomen/Pelvis CT 01/22/24 13:54 IMPRESSION: Question distal common bile duct calculus with common bile duct measuring up to 1.5 cm in diameter and with some mild central intrahepatic bile duct prominence. No evidence of obstructive uropathy. Probable bladder calculi. No evidence of bowel ileus or obstruction. 3.2 cm infrarenal abdominal aortic aneurysm for which follow up every 3 years is recommended. Osteopenia with bony findings as described above. Fleischner guidelines were followed. Head CT 01/22/24 13:54 IMPRESSION: Motion degraded examination. Within this limitation: 1. No acute intracranial hemorrhage, mass effect, hydrocephalus, or acute territorial edematous infarction. 2. Moderate chronic white matter microangiopathy and age-indeterminate but favored chronic lacunar infarct in the left thalamus. Bone Scan Nuclear Medicine 01/25/24 18:55 IMPRESSION: No evidence of osteomyelitis. Mildly increased activity in the acetabula bilaterally and in the knees bilaterally is nonspecific but likely arthritic or degenerative in etiology.. Abdomen Ultrasound 01/26/24 13:20 IMPRESSION: Dilated common bile duct measuring up to 10 mm in diameter with possible 1.4 cm stone in the distal duct. Hepatobiliary Scan Nuclear Medicine 01/28/24 16:10 IMPRESSION: 1. The gallbladder is surgically absent. 2. The common bile duct is functionally patent. Follow-up MRCP may be considered to exclude partial obstruction and/or further confirmation of previous sonographic suspected choledocholithiasis. 3. Liver function appears normal. Discharge Plan Discharge Anticipated Discharge Date/Time: 01/29/24 12:02 Patient Disposition: Home Health Service Discharge Diagnosis: viral sepsis chronically dilated common bile duct hypertension Referrals: Ted DICKEY [Outside] - 1 Week Bruce Acevedo III, MD [Primary Care Provider] - 02/19/24 1:30 pm (You have a follow up appointment schedule. If you can not make this appointment please call doctors office.) Discharge Medications: New amlodipine 10 mg Tablet 10 mg PO DAILY Qty: 30 0RF Protocol: Hold for SBP< HOLD for SBP < : 90 Continued fluticasone propion-salmeterol 250-50 mcg/dose blister with device 1 ea inhalation BID baclofen 20 mg tablet 20 mg PO TID hydroxyzine HCl 25 mg tablet 25 mg PO Q8H PRN (Reason: anxiety) oxycodone 20 mg tablet 20 mg PO TID Combivent Respimat 20-100 mcg/actuation mist 1 puff inhalation QID PRN (Reason: Shortness Of Breath) aspirin 81 mg Tablet,Delayed Release (Dr/Ec) 81 mg PO DAILY ondansetron 4 mg Tablet,Disintegrating 4 mg translingual Q8H PRN (Reason: Nausea) Qty: 15 0RF Discharge Orders: Discharge Order (Routine); Ordered 01/29/24 Ordered By: Luna Lilly Diet: Advance to usual diet Activity on Discharge: As tolerated Stand Alone Forms: Patient Portal Discharge page Print Language: Serbian Care Plan Goals: recovery from infection Health Concerns: viral sepsis chronically dilated common bile duct hypertension Plan of Treatment: sepsis resolved, no bacterial source of infection found bile appears to be flowing normally start amlodipine 10 mg daily Please follow up with your primary care doctor within 1 week. Return to the hospital if you experience recurrent or worsening symptoms. Assessment: See Discharge Summary.
--- NOTE | 2024-01-29 12:13 | MHC.CM.PN ---
Addendum entered by Katty Hawkins 01/29/24 13:34: [facility] AUTH TRANSPORT #: [id number] Original Note: PT WILL DC HOME TODAY WITH RESUMPTION OF HER 11/05 CARE AND [facility] SERVICES CM RECEIVED A CALL FROM PTS DAUGHTER MTATHEW WHO ASKED WHAT TIME PT WOULD BE HOME SO SHE COULD ENSURE SHE WAS THERE FIRST PER DISCUSSION, BLS TRANSPORT WAS BOOKED WITH [facility] FOR 1600 HOURS
[2024-01-29] MEDS: Acetaminophen 325 MG TABLET 650 MG PO (14:40)
[2024-01-29 15:21] VITALS: BP 158/78; PULSE 102; RESP 18; TEMP 37.1; O2SAT 98
== END 2024-01-29 16:50 | disposition home health service (06) | DRG 871 ==
LOC: HO.ED 18:02 → HO.EDOVER 19:57 → HO.S3 20:18
PROVIDERS: Internal Medicine; Physician Assistant; Admitting Provider Student in an Organized Health Care Education/Training Program; Emergency Provider Emergency Medicine; PCP Internal Medicine; Visit Provider Family Medicine
DX: A41.89 Other specified sepsis (principal); G93.41 Metabolic encephalopathy; I69.351 Hemiplegia and hemiparesis following cerebral infarction affecting right dominant side; T76.01XA Adult neglect or abandonment, suspected, initial encounter; E87.6 Hypokalemia; K83.8 Other specified diseases of biliary tract; Z74.01 Bed confinement status; J44.9 Chronic obstructive pulmonary disease, unspecified; Z66 Do not resuscitate; I25.10 Atherosclerotic heart disease of native coronary artery without angina pectoris; I25.2 Old myocardial infarction; E78.5 Hyperlipidemia, unspecified; I10 Essential (primary) hypertension; F17.210 Nicotine dependence, cigarettes, uncomplicated; Z71.6 Tobacco abuse counseling; F03.90 Unspecified dementia, unspecified severity, without behavioral disturbance, psychotic disturbance, mood disturbance, and anxiety; M62.462 Contracture of muscle, left lower leg; G89.4 Chronic pain syndrome; Z20.822 Contact with and (suspected) exposure to COVID-19; Z79.82 Long term (current) use of aspirin; Z79.899 Other long term (current) drug therapy
CPT/HCPCS: 0241U; 36415; 70450; 71045; 74177; 76705; 78226; 78300; 80048; 80053; 80076; 80202; 80307; 81003; 82140; 82550; 82803; 82947; 82977; 83605; 83690; 83735; 84145; 84484; 85025; 85027; 85610; 85652; 86140; 87040; 93005; 94640; 99285; A9503; A9537; C1758; J1170; J1650; J1790; J2060; J2405; J2543; J3370; J3371; J3480; J7120; Q9967

== ENCOUNTER → 2024-01-22 13:33 | Outpatient (BNV) | payer MEDICARE, SELFPAY | PROVIDERS: Emergency Provider Emergency Medicine; PCP Internal Medicine; Visit Provider Internal Medicine Cardiovascular Disease | DX: R00.0 Tachycardia, unspecified (principal) | CPT/HCPCS: 93010 ==

== ENCOUNTER → 2024-01-22 19:38 | Outpatient (BNV) | payer MEDICARE, SELFPAY | PROVIDERS: Admitting Provider Student in an Organized Health Care Education/Training Program; Emergency Provider Emergency Medicine; PCP Internal Medicine; Visit Provider Family Medicine | DX: K83.8 Other specified diseases of biliary tract (principal); A41.89 Other specified sepsis; B97.89 Other viral agents as the cause of diseases classified elsewhere; I10 Essential (primary) hypertension; E87.6 Hypokalemia; G93.49 Other encephalopathy; B99.9 Unspecified infectious disease | CPT/HCPCS: 99223; 99232; 99239; G0180 ==

== ENCOUNTER → 2024-01-22 19:38 | Outpatient (BNV) | payer MEDICARE, SELFPAY | PROVIDERS: Admitting Provider Student in an Organized Health Care Education/Training Program; Emergency Provider Emergency Medicine; PCP Internal Medicine; Visit Provider Internal Medicine | DX: A41.9 Sepsis, unspecified organism (principal); M25.552 Pain in left hip; K83.8 Other specified diseases of biliary tract | CPT/HCPCS: 99222 ==

== ENCOUNTER → 2024-01-22 19:38 | Outpatient (BNV) | payer OTHER, SELFPAY | PROVIDERS: Admitting Provider Student in an Organized Health Care Education/Training Program; Emergency Provider Emergency Medicine; PCP Internal Medicine; Visit Provider Internal Medicine | DX: D72.829 Elevated white blood cell count, unspecified (principal) | CPT/HCPCS: 99222 ==